=== PATIENT | female | born 2000 | race Caucasian/White ===

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

== ENCOUNTER 2018-08-02 01:42 | Outpatient (CLI) | payer MEDICAID, SELFPAY ==
--- NOTE | 2018-08-02 08:03 | DI.US_ITS ---
SYMPTOM/DIAGNOSIS: RT SIDED PELVIC PAIN, ? OVARIAN CYST, IUD PLACEMENT PELVIC ULTRASOUND: Transabdominal and transvaginal examination was performed. There are no priors for comparison. The uterus measures 5.6 cm long x 3.7 cm AP x 4.8 cm transverse. The endometrial stripe is within normal limits at 0.6 cm. There is a trace amount of free fluid in the endometrial canal. There is an intrauterine device in good position. The right ovary measures 2.8 x 2.0 x 3.0 cm. The left ovary measures 2.7 x 1.6 x 2.8 cm. There are small follicular cysts seen in both ovaries. There is normal blood flow to the ovaries. No evidence of torsion present. No free pelvic fluid is seen. No hydronephrosis is identified. IMPRESSION: 1. Intrauterine device within good position. 2. Otherwise unremarkable pelvic ultrasound.
== END 2018-08-02 02:02 ==
PROVIDERS: PCP Specialist/Technologist Athletic Trainer; Visit Provider Nurse Practitioner Women's Health
DX: R10.31 Right lower quadrant pain; Z97.5 Presence of (intrauterine) contraceptive device
CPT/HCPCS: 76830; 76856

== ENCOUNTER 2019-01-31 12:35 | Outpatient (REF) | payer SELFPAY | END 2019-01-31 12:55 | LOC: LBN 12:35 | PROVIDERS: Visit Provider Nurse Practitioner Family | DX: R30.0 Dysuria (principal) | CPT/HCPCS: 87077; 87086; 87186 ==

== ENCOUNTER 2020-02-24 18:48 | Outpatient (REF) | payer MEDICAID, SELFPAY | END 2020-02-24 19:08 | LOC: LBN 18:48 | PROVIDERS: Visit Provider Obstetrics & Gynecology | DX: R30.0 Dysuria (principal) | CPT/HCPCS: 87086 ==

== ENCOUNTER 2020-03-09 11:49 | Outpatient (REF) | payer MEDICAID, SELFPAY ==
--- NOTE | 2020-03-09 10:20 | PAPFT_PTH ---
PATIENT: Cayla Marquis V LOC: [facility] U#:[id number] AGE/SX: 19/F ROOM: RE03/09/[address]: Brittney Correa DO : 2000 BED: DIS: 03/09/2020 SPEC #: [id number] RECD: 03/09/20 13:00 STATUS: RENETTA REQ #: [id number] ALVARADO: 03/09/20 10:[address]: Brittney Correa DEPT: [facility] Cytology RECD BY: Ana Maya Tissues: 1 - CX/ENDOCX FOR PAP SMEARS Procedures: PAP THIN PREP/UVM Screening Comments: [id number]
== END 2020-03-09 12:09 ==
LOC: LBN 11:49
PROVIDERS: Visit Provider Obstetrics & Gynecology
DX: Z12.4 Encounter for screening for malignant neoplasm of cervix (principal); R87.612 Low grade squamous intraepithelial lesion on cytologic smear of cervix (LGSIL)
CPT/HCPCS: 88142

== ENCOUNTER 2020-03-19 16:02 | Outpatient (REF) | payer MEDICAID, SELFPAY ==
--- NOTE | 2020-03-19 14:30 | CER_PTH ---
PATIENT: Cayla Marquis V LOC: [facility] U#:[id number] AGE/SX: 19/F ROOM: RE03/19/[address]: Brittney Correa DO : 2000 BED: DIS: 03/19/2020 SPEC #: [id number] RECD: 03/19/20 16:59 STATUS: RENETTA REQ #: [id number] ALVARADO: 03/19/20 14:[address]: Brittney Correa DEPT: Surgical Specimen RECD BY: Ana Maya ENTERED: 03/19/20 17:01 SP TYPE: CER GLADYS DR: None Tissues: 1 - CERVICAL BIOPSY 2 - ENDOCERVICAL BX/CURRETTE Procedures: GROSS AND MICRO LEVEL 4 Comments: [id number]
== END 2020-03-19 16:22 ==
LOC: LBN 16:02
PROVIDERS: Visit Provider Obstetrics & Gynecology
DX: N88.8 Other specified noninflammatory disorders of cervix uteri (principal); R87.612 Low grade squamous intraepithelial lesion on cytologic smear of cervix (LGSIL)
CPT/HCPCS: 88305

== ENCOUNTER 2020-09-03 01:48 | Outpatient (CLI) | payer MEDICAID, SELFPAY ==
[2020-09-03 11:15] LABS: Kit/Specimen SENT
[2020-09-03 11:22] LABS: Abs Immature Grans 0.02 10^3/uL (0.0-0.06); Absolute Basophil Count 0.04 10^3/uL (0.0-0.2); Absolute Eosinophil Count 0.14 10^3/uL (0.0-0.7); Absolute Lymphocyte Count 2.64 10^3/uL (1.2-3.4); Absolute Monocyte Count 0.71 10^3/uL (0.1-0.8); Absolute Neutrophil Count 5.07 10^3/uL (1.2-6.7); Basophils % 0.5; Eosinophils % 1.6; HCT 37.4 % (36.0-46.0); HGB 12.7 g/dL (11.2-15.7); Immature Grans % 0.2; Lymphocytes % 30.6; MCH 31.1 pg (27.0-33.0); MCV 91.4 fL (80-95); MPV 9.5 fL (8.0-11.0); Monocytes % 8.2; Neutrophils % 58.9; Nucleated RBC 0 %; Platelet Count 329 10^3/uL (130-400); RBC 4.09 10^6/uL (3.93-5.22); RDW 11.7 % (11.7-14.6); RDW-SD 39.3 fL; WBC 8.62 10^3/uL (4.4-10.8)
[2020-09-03 12:22] LABS: TSH (W/Ref FT4) 1.27 uIU/mL (0.36-3.74)
[2020-09-06 10:15] LABS: Hepatitis C Ab w Rflx HCV PCR Negative (Negative); Varicella IgG Antibody Positive (See Note)
[2020-09-06 10:20] LABS: Rubella IgG Ab (UVM) Negative (See Note)
[2020-09-06 12:16] LABS: Hepatitis B Surface Ag Negative (Negative)
[2020-09-06 14:13] LABS: HIV-1/2 Ag & Ab Screen Negative (Negative)
[2020-09-07 11:25] LABS: Syphilis Total Ab w/Reflex Nonreactive (Nonreactive)
[2020-09-14 01:18] LABS: Result Summary NEGATIVE; Specimen WB Whole Blood
== END 2020-09-03 01:49 | disposition home or self-care (01) ==
LOC: LBO 01:49
PROVIDERS: Visit Provider Advanced Practice Midwife
DX: Z34.91 Encounter for supervision of normal pregnancy, unspecified, first trimester (principal); F41.9 Anxiety disorder, unspecified; Z68.31 Body mass index [BMI] 31.0-31.9, adult; Z11.4 Encounter for screening for human immunodeficiency virus [HIV]; Z11.59 Encounter for screening for other viral diseases; Z01.84 Encounter for antibody response examination; Z36.89 Encounter for other specified antenatal screening; O99.211 Obesity complicating pregnancy, first trimester
CPT/HCPCS: 36415; 86787; 86803; 86850; 86900; 86901; 87340; 87389; 81220; 84443; 85025; 86762; 86780

== ENCOUNTER 2020-09-03 13:35 | Outpatient (REF) | payer MEDICAID, SELFPAY ==
[2020-09-03 12:12] LABS: *AMPHETAMINES SCREEN URINE Negative (Negative); *BARBITURATES SCREEN URINE Negative (Negative); *BENZODIAZEPINES SCREEN URINE Negative (Negative); Cannabinoids THC Negative (Negative); Cocaine Screen,Urine Negative (Negative); METHADONE URINE SCREEN Negative (Negative); OPIATES URINE SCREEN Negative (Negative)
[2020-09-03 12:13] LABS: Tricyclic Antidepressants Negative (Negative)
[2020-09-06 14:02] LABS: Chlamydia Result Negative (Negative); GC Result Negative (Negative)
[2020-09-08 10:04] LABS: Buprenorphine Negative ng/mL (Cutoff: 5.0); Norbuprenorphine Negative ng/mL (Cutoff: 2.5)
== END 2020-09-03 13:36 | disposition home or self-care (01) ==
LOC: LBN 13:35
PROVIDERS: Visit Provider Advanced Practice Midwife
DX: O26.891 Other specified pregnancy related conditions, first trimester (principal); N89.8 Other specified noninflammatory disorders of vagina; Z3A.10 10 weeks gestation of pregnancy
CPT/HCPCS: 80307; 87491; 87591; 87086; 87480; 87510; 87660

== ENCOUNTER 2020-09-09 03:37 | Outpatient (CLI) | payer MEDICAID, SELFPAY ==
[2020-09-09 12:45] LABS: Glucose,1 Hr (Glucola) 103 mg/dL (80-140)
== END 2020-09-09 03:38 | disposition home or self-care (01) ==
LOC: LBO 03:37
PROVIDERS: Advanced Practice Midwife; Visit Provider Advanced Practice Midwife
DX: Z68.31 Body mass index [BMI] 31.0-31.9, adult (principal); O99.211 Obesity complicating pregnancy, first trimester
CPT/HCPCS: 36415; 82950

== ENCOUNTER 2020-10-01 10:54 | Outpatient (REF) | payer MEDICAID, SELFPAY | END 2020-10-01 10:55 | disposition home or self-care (01) | LOC: LBN 10:54 | PROVIDERS: Visit Provider Advanced Practice Midwife | DX: Z34.92 Encounter for supervision of normal pregnancy, unspecified, second trimester (principal); N89.8 Other specified noninflammatory disorders of vagina; Z3A.14 14 weeks gestation of pregnancy | CPT/HCPCS: 87480; 87510; 87660 ==

== ENCOUNTER 2020-11-05 04:37 | Outpatient (CLI) | payer MEDICAID, SELFPAY ==
--- NOTE | 2020-11-05 06:45 | DI.US_ITS ---
Exam(s) US OB 2-3 TRIMESTER W MOD EXAM: US OB 2-3 TRIMESTER W MOD CLINICAL HISTORY: anatomy, Z34.92. TECHNIQUE: Transabdominal obstetrical ultrasound performed. COMPARISON: No exams were available for comparison FINDINGS: Transabdominal obstetrical ultrasound performed. FINDINGS: Number of fetuses: One. position: Vertex. Placental grade: 1 Placental location: Anterior. No evidence of previa. BIOMETRIC DATA: BPD: 42 millimeters, 18+ 5 weeks HC: 164 millimeters, 19+ 1 weeks AC: 139 millimeters, 19+ 2 weeks FL: 30 millimeters, 19+ 3 weeks Cisterna Magna: 4 millimeters Cerebellum: 1.8 cm EFW: 286 grms 47 % Composite Age: 19+ 1 weeks EDC by US: 31 March 2021 Heart Rate: 145BPM Amniotic fluid: Amount of fluid is visually within normal limits. ANATOMICAL SURVEY: Four-chambered heart: Unremarkable. LVOT: Unremarkable. RVOT: Unremarkable. Left-sided stomach: Unremarkable. urinary bladder: Unremarkable. Bilateral kidneys: Unremarkable. Three-vessel cord: Unremarkable. Cord insertion: Unremarkable. Posterior fossa:Unremarkable. ventricles: Unremarkable. nose: Not well seen lips: Not well seen palate: Unremarkable. spine: Unremarkable. Two arms and two legs: Unremarkable. IMPRESSION: 1. Single live intrauterine gestation as above. 2. Normal anatomic survey. face not optimally visualized. Patient is scheduled to retur n for additional imaging 12 November 2020. DATA REPOSITORY:
== END 2020-11-05 04:57 ==
PROVIDERS: Visit Provider Advanced Practice Midwife
DX: Z34.92 Encounter for supervision of normal pregnancy, unspecified, second trimester (principal); Z3A.18 18 weeks gestation of pregnancy
CPT/HCPCS: 76805

== ENCOUNTER 2020-11-12 03:29 | Outpatient (CLI) | payer MEDICAID, SELFPAY ==
--- NOTE | 2020-11-12 | DI.US_ITS ---
Exam(s) US OB F/U FACIAL/LVOT/RVOT EXAM: US OB F/U FACIAL/LVOT/RVOT CLINICAL HISTORY: F/U SURVEY,LIPS,NOSE AND FACE TO VISUALIZE. TECHNIQUE: Transabdominal obstetrical ultrasound performed. COMPARISON: US US OB 2-3 TRIMESTER W MOD from 11/05/2020 US US OB 2-3 TRIMESTER W MOD from 11/05/2020 FINDINGS:: Number of fetuses: One. position: Transverse head toward maternal left Placental location: Anterior r. No evidence of previa. Heart Rate: 155BPM Amniotic fluid: Amount of fluid is within normal limits. The patient returned for additional imaging to better visualize the nose and lips. Nose and li ps were well seen on today's exam. No abnormalities identified. IMPRESSION: No facial abnormality is identified. DATA REPOSITORY:
== END 2020-11-12 03:49 ==
PROVIDERS: Visit Provider Advanced Practice Midwife
DX: Z34.92 Encounter for supervision of normal pregnancy, unspecified, second trimester (principal)
CPT/HCPCS: 76815

== ENCOUNTER 2020-12-31 03:44 | Outpatient (CLI) | payer MEDICAID, SELFPAY ==
[2020-12-31 10:58] LABS: HCT 34.6 % (36.0-46.0); HGB 11.7 g/dL (11.2-15.7); MCH 30.9 pg (27.0-33.0); MCHC 33.8 % (32.0-36.0); MCV 91.3 fL (80-95); MPV 9.7 fL (8.0-11.0); Platelet Count 301 10^3/uL (130-400); RBC 3.79 10^6/uL (3.93-5.22); RDW 12.4 % (11.7-14.6); RDW-SD 41.4 fL; WBC 13.08 10^3/uL (4.4-10.8)
[2020-12-31 11:07] LABS: Glucose,1 Hr (Glucola) 98 mg/dL (80-140)
== END 2020-12-31 03:45 | disposition home or self-care (01) ==
PROVIDERS: Advanced Practice Midwife; Visit Provider Advanced Practice Midwife
DX: Z34.93 Encounter for supervision of normal pregnancy, unspecified, third trimester (principal); Z3A.27 27 weeks gestation of pregnancy
CPT/HCPCS: 36415; 82950; 85027; 82951

== ENCOUNTER 2021-03-02 09:58 | Outpatient (REF) | payer MEDICAID, SELFPAY ==
[2021-03-02 10:43] LABS: *AMPHETAMINES SCREEN URINE Negative (Negative); *BARBITURATES SCREEN URINE Negative (Negative); *BENZODIAZEPINES SCREEN URINE Negative (Negative); Cannabinoids THC Negative (Negative); Cocaine Screen,Urine Negative (Negative); METHADONE URINE SCREEN Negative (Negative); OPIATES URINE SCREEN Negative (Negative)
[2021-03-02 10:55] LABS: Tricyclic Antidepressants Negative (Negative)
[2021-03-09 12:09] LABS: Buprenorphine Negative ng/mL (Cutoff: 5.0); Norbuprenorphine Negative ng/mL (Cutoff: 2.5)
== END 2021-03-02 09:59 | disposition home or self-care (01) ==
LOC: LBN 09:58
PROVIDERS: Visit Provider Advanced Practice Midwife
DX: Z34.91 Encounter for supervision of normal pregnancy, unspecified, first trimester
CPT/HCPCS: 80307; 87081

== ENCOUNTER 2021-03-11 09:59 | Outpatient (CLI) | payer MEDICAID, SELFPAY ==
[2021-03-11 10:07] VITALS: BP 124/76; PULSE 87; TEMP 37.1
--- NOTE | 2021-03-11 11:13 | W.OBNST ---
Date of service: 03/11/21 Time of Service: 10:55 NST Evaluation Reason for NST Reasons for Nonstress Test: DECREASED MOVEMENT Gestational Age Gestational Age in Weeks and Days: 37 Weeks and 2Days Test and Monitor Explained Test/Monitor Explained: Test Explained, Monitor Explained and Patient Verbalized Understanding Vital Signs Blood Pressure: 124/76 Pulse: 87 Temperature: 98.8 F Urine Results Urine Protein: Negative Urine Ketones: Negative Urine Glucose: Negative Urine Blood: Negative NST Information Date on Monitor: 03/11/21 Time on Monitor: 10:05 Date off Monitor: 03/11/21 Time off Monitor: 10:32 Total Time on Monitor: 27 NST Interventions: PO Hydration NST Evaluation Patient States Movement: Present FHR Baseline: 155 Variability: Moderate 6-25 bpm Accelerations: 15x15 Decelerations: None NST Results: Reactive Note NST Note Note: NST done due to mild elevation in BP today in office without symptoms of pre-eclampsia. Urine protein is negative on BC today. NST is reactive and reassuring. RTO 1 week. PUNEET NST Reviewed and Verified by: Darby Orr
[2021-03-11 11:14] VITALS: BP 124/76; PULSE 87; TEMP 37.1
== END 2021-03-11 10:45 | disposition home or self-care (01) ==
LOC: LBN 10:02 → OBS 10:06
PROVIDERS: Visit Provider Advanced Practice Midwife
DX: O26.893 Other specified pregnancy related conditions, third trimester (principal); R03.0 Elevated blood-pressure reading, without diagnosis of hypertension; Z3A.37 37 weeks gestation of pregnancy
CPT/HCPCS: 59025

== ENCOUNTER 2021-03-17 10:27 | Outpatient (CLI) | payer MEDICAID, SELFPAY ==
[2021-03-17 10:33] VITALS: TEMP 36.7
[2021-03-17 10:40] VITALS: BP 119/77; PULSE 106; TEMP 36.7
--- NOTE | 2021-03-17 11:10 | W.OBNST ---
Date of service: 03/17/21 Time of Service: 11:10 NST Evaluation Reason for NST Reasons for Nonstress Test: OTHER, SEE COMMENT (FHT >160 in the office) Gestational Age Gestational Age in Weeks and Days: 38 Weeks and 1Days Test and Monitor Explained Test/Monitor Explained: Test Explained, Monitor Explained and Patient Verbalized Understanding Vital Signs Blood Pressure: 119/77 Pulse: 106 Temperature: 98.1 F NST Information Time on Monitor: 10:19 Date off Monitor: 03/17/21 Time off Monitor: 10:42 NST Interventions: PO Hydration Contraction Frequency: Q7, X2 NST Evaluation Patient States Movement: Present FHR Baseline: 150 Variability: Moderate 6-25 bpm Accelerations: 15x15 Decelerations: None NST Results: Reactive Note NST Note NST Reviewed and Verified by: Iris Rizvi
[2021-03-17 11:12] VITALS: BP 119/77; PULSE 106; TEMP 36.7
== END 2021-03-17 10:46 | disposition home or self-care (01) ==
LOC: BCD 10:28 → OBS 10:31 → BCD 10:35 → OBS 10:36
PROVIDERS: Visit Provider Advanced Practice Midwife
DX: O76 Abnormality in fetal heart rate and rhythm complicating labor and delivery (principal); Z3A.38 38 weeks gestation of pregnancy
CPT/HCPCS: 59025

== ENCOUNTER 2021-03-25 10:18 | Outpatient (CLI) | payer MEDICAID, SELFPAY ==
[2021-03-25 10:22] VITALS: BP 128/76; PULSE 96; TEMP 37
--- NOTE | 2021-03-25 11:19 | PDOC.NST_ITS ---
Date of service: 03/25/21 Time of Service: 11:00 NST Evaluation Reason for NST Reasons for Nonstress Test: OTHER, SEE COMMENT Reason for NST Other: tachy in office Gestational Age Gestational Age in Weeks and Days: 39 Weeks and 2Days Test and Monitor Explained Test/Monitor Explained: Test Explained, Monitor Explained and Patient Verbalized Understanding Vital Signs Blood Pressure: 128/76 Pulse: 96 Temperature: 98.6 F NST Information Date on Monitor: 03/25/21 Time on Monitor: 10:13 Date off Monitor: 03/25/21 Time off Monitor: 10:58 Total Time on Monitor: 45 NST Interventions: PO Hydration NST Evaluation Patient States Movement: Present FHR Baseline: 155 Variability: Moderate 6-25 bpm Accelerations: 15x15 Decelerations: None NST Results: Reactive Note NST Note Note: Cayla presents from office due to heart rate 170 which resolved with position change in office. She had mild BP elevation but less than 140/90. Denies [place], visual disturbance or epigastric pain. Baby is active. She is having some contractions that she reports as cramping. No LOF or bloody show. BP is 128/76 NST reactive and reassuring. Therapy Coordinator will call patient with pro/creat ratio when available. She has appointment for 2/4 in office. PUNEET NST Reviewed and Verified by: Darby rOr
[2021-03-25 11:21] VITALS: BP 128/76; PULSE 96; TEMP 37
[2021-03-25 11:38] LABS: COMMENT (LAB VIEW ONLY) 185.44 mg/dL; PROTEIN 21.9 mg/dL; Prot/Crea Ur Ratio 0.11
== END 2021-03-25 11:24 | disposition home or self-care (01) ==
LOC: BCD 10:18 → OBS 10:20
PROVIDERS: Advanced Practice Midwife; Visit Provider Advanced Practice Midwife
DX: O76 Abnormality in fetal heart rate and rhythm complicating labor and delivery (principal); O26.893 Other specified pregnancy related conditions, third trimester; R03.0 Elevated blood-pressure reading, without diagnosis of hypertension; Z3A.39 39 weeks gestation of pregnancy
CPT/HCPCS: 59025; 82565; 84156

== ENCOUNTER 2021-04-01 12:19 | Outpatient (REF) | payer MEDICAID, SELFPAY | END 2021-04-01 12:20 | disposition home or self-care (01) | LOC: LBN 12:19 | PROVIDERS: Visit Provider Advanced Practice Midwife | DX: N89.8 Other specified noninflammatory disorders of vagina (principal) | CPT/HCPCS: 87480; 87510; 87660 ==

== ENCOUNTER 2021-04-06 07:00 | Outpatient (CLI) | payer MEDICAID, SELFPAY ==
[2021-04-06 08:59] VITALS: BP 138/88; PULSE 101
[2021-04-06 09:39] VITALS: BP 138/88; PULSE 101; TEMP 36.8
[2021-04-06 10:14] VITALS: BP 131/88; PULSE 96
[2021-04-06 10:45] VITALS: BP 122/79; PULSE 77
--- NOTE | 2021-04-06 11:08 | W.OBNST ---
Date of service: 04/06/21 Time of Service: 11:09 NST Evaluation Reason for NST Reasons for Nonstress Test: POSTDATES Gestational Age Gestational Age in Weeks and Days: 41 Weeks and 0Days Test and Monitor Explained Test/Monitor Explained: Test Explained, Monitor Explained and Patient Verbalized Understanding Vital Signs Blood Pressure: 138/88 Pulse: 101 Temperature: 98.2 F Urine Results Urine Protein: Positive Urine Ketones: Negative Urine Glucose: Negative Urine Blood: Negative NST Information Date on Monitor: 04/06/21 Time on Monitor: 08:44 Date off Monitor: 04/06/21 Time off Monitor: 10:13 Total Time on Monitor: 89 NST Interventions: PO Hydration Contraction Frequency: 8-10 NST Evaluation Patient States Movement: Present FHR Baseline: 140 Variability: Moderate 6-25 bpm Accelerations: 15x15 Decelerations: None NST Results: Reactive Note GRICELDA Results of GRICELDA: 13.1 NST Note Note: NST reactive BP taken with large cuff is 122/79. pt's arm measures 33-34 cm Cvx 2/80% vtx -2, ROP Intact membranes, GRICELDA is 13.1 Pt scheduled for IOL on the evening Apr 08 for postdates NST Reviewed and Verified by: Iris Rizvi
[2021-04-06 11:11] VITALS: BP 138/88; PULSE 101; TEMP 36.8
== END 2021-04-06 11:00 | disposition home or self-care (01) ==
LOC: BCD 07:01 → OBS 08:41
PROVIDERS: Visit Provider Advanced Practice Midwife
DX: O48.0 Post-term pregnancy (principal); Z3A.41 41 weeks gestation of pregnancy
CPT/HCPCS: 59025

== ENCOUNTER 2021-04-07 19:00 | Inpatient (IN) | payer MEDICAID, SELFPAY ==
[2021-04-07 19:42] VITALS: PULSE 81; RESP 18; TEMP 36.6
--- NOTE | 2021-04-07 19:59 | HPE_ITS ---
Date of service: 04/07/21 Time of Service: 19:59 Assessment and Plan Assessment and plan (1) Spontaneous onset of labor: Status: Acute Assessment and plan: A: 20 yo @ 41 wks Early labor with cvx change from yesterday GBS neg, Rh+, Rubella Non-Immune Category 1 tracing; BBOW, 4/100% vtx -2 ROP Mildly elevated risk for SD d/t primipara status with 40 lb wt gain No increased risk for PPH at this time Pt plans for epidural anesthesia P: Admit to BC, CBC, T&S, COVID swab Encourage rest and comfort measures as desired Epidural anesthesia when pt requests Dr. Warner available for consult if needed MMR vaccine (2) Post-dates : Status: Acute OB-HPI Labor/Delivery History of Present Illness Reason for Visit: Post term rule out labor Chief Complaint: Uterine Contractions. ASIF Calculator Estimated Delivery Date Method Current WG Current Estimate 03/30/21 LMP (Certain) 41w 1d Other Estimates 03/31/21 Ultrasound #1 41w 0d History of Present Expected Delivery Route/Plan - CNM FOB - Beny Potter (his first child) - he has a thyroid condition Rubella Non-Immune, offer MMR / GBS neg KAY Cowan Planning epidural for delivery, Depo Specific Issues/Plan 1. penicillin allergy - rash- offer screening and allergy testing: considering doing this if indicated by GBS status or 1a. Screening @ 19 wks indicate low risk for PCN allergy, too late for AP testing, will refer to [facility] , Ancef is likely recommended if GBS+ 2. BMI - greater than 30- early 1-hr GTT (risskm=108), low dose ASA recommended daily, declines ASA due to GI upset with ASA. 3, Anxiety- sees therapist Keri Verdugo.- discontinued effexor with 3a. Would like to restart Effexor ER immediately 4. 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 History of UTI, urine culture negative 6. Bacterial Vaginosis - symptomatic, treatment with metronidazole after 10 weeks gestation, repeat test 10/01 due to odor, if positive wants vag cream 7. Rubella non-immune - discussed with Cayla 11/05/20, offer vaccine post , pt uncertain if she will accept 8. [place] results=low prob x3, female fetus, CF screen negative 9. Pt and FOB are choosing to be unvaccinated against COVID- reviewed Covid precautions 10. 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 Desires LC consult after 36 wks but prior to Narrative: Pt seen yesterday for postdates evaluation, NST was reactive and GRICELDA was 13.1, discharged to home to return for scheduled IOL for postdates on 04/08. However, contractions began last night at midnight and continued all day today with slowly increasing discomfort and frequency of contractions. No ROM, no bleeding, lower abd cramping with back pain described. Pt able to eat and drink fluids without emesis throughout the day. She presents this evening calm and conversational though has to breath through contractions, states she has been awake since PA without a chance to nap. SRIRAM wSan accompanies pt for support. Review of Systems Narrative: ROS completed and is noncontributory other then HPI Cardiovascular Cardiovascular: Reports system reviewed and no additional complaints, except as documented Respiratory Respiratory: Reports system reviewed and no additional complaints, except as documented Gastrointestinal Gastrointestinal: Reports system reviewed and no additional complaints, except as documented Genitourinary Genitourinary: Reports system reviewed and no additional complaints, except as documented Musculoskeletal Musculoskeletal: Reports back pain Integumentary/Breasts Skin/Breast: Reports system reviewed and no additional complaints, except as documented Neurologic Neurologic: Reports system reviewed and no additional complaints, except as documented Psychiatric Psychiatric: Reports system reviewed and no additional complaints, except as documented, Reports as per HPI and Reports other (hx anxiety, discontinued medication when bcame ) PFSH All Active Problems (Updated 04/07/21 @ 20:14 by Iris Rizvi) Spontaneous onset of labor (Acute) Post-dates (Acute) Rubella non-immune status, antepartum (Acute) Anxiety (Chronic) discontinued effexor with BMI 31.0-31.9,adult (Acute) LGSIL on Pap smear of cervix (Acute) colposcopy 2020 Penicillin adverse reaction (Acute) rash History of recurrent UTIs (Acute) Keratosis pilaris (Acute 07/31/13) tiffany Lei rec Am LActin 4% every am with tretinoin 0.05% every hs Medical History (Updated 04/07/21 @ 20:14 by Iris Rizvi) 39 weeks gestation of Contraception (08/18/16) History of chicken pox (05/15/05) Missed menses Snoring UTI (urinary tract infection) Vaginal discharge during in first trimester Vaginal odor Vision problem wears glasses Well woman exam with routine gynecological exam Family History (Updated 09/03/20 @ 09:36 by Darby Busby CNM) Mother Essential hypertension stress related Healthy adult Father Healthy adult Other Personal history of malignant neoplasm pat uncle-brain Myocardial infarction PGGF Brother Penicillin allergy Social History Smoking/Tobacco Use Status: Never Smoking risk assessment performed?: Yes Drug use: Never Do you feel safe at home: Yes Do you feel safe in your relationship?: Yes Female Reproductive History Menstrual control method: none History History 2 Para 0 Hx # Term Pregnancies 0 Multiple births 0 Hx # Pregnancies 0 Ectopic pregnancies 0 AB induced 0 Hx Number of Living Children 0 AB spontaneous 1 Meds Allergies and Home Medications Allergies Allergy/AdvReac Type Severity Reaction Status Date / Time amoxicillin Allergy Intermediate Hives Verified 04/01/21 08:42 cillins AdvReac Unknown pt states Uncoded 04/01/21 08:42 swelling and rash with all the cillins Home Medications Medication Instructions Recorded Confirmed Type prenat.vits,[place],esa-hgyq-amxex 1 tab PO DAILY 08/13/20 03/17/21 History Exam Physical Exam Vital signs: Temp Pulse Resp 97.9 F 81 18 04/07/21 19:42 04/07/21 19:42 04/07/21 19:42 Vital Signs Reviewed: Yes Constitutional Comments: Well appearing female in NAD, coping easily with contractions Detailed Labor and Delivery Exam Dilation: 4 Effacement (%): 100 station: -2 Position: ROP Cervix position: anterior Consistency: soft HERNANDEZ Score(Cervical Ripeness Score): 10 Amniotic Membrane Status: Intact (softly bulging forebag) Contraction Frequency(min): q3-4 Contraction Duration(sec): 50-70 Fetus A Heart Rate Baseline: 140 Monitor Accelerations: Present Monitor Decelerations: None Variability: Moderate (6-25 BPM) Presentation: Cephalic Categories: Category I Est. Weight: 8 lb 2.514 oz Est. Weight: 3700 gms HEENT Exam HEENT Exam: Normal Neck Exam Neck Exam: Normal Chest/Brest/Axilla Exam Chest Exam: Normal Breast Exam Breast Exam: Not Done Respiratory Exam Respiratory Exam: Normal Cardiovascular Exam Cardiovascular Exam: Normal Abdominal Exam Abdominal Exam: Normal (gravid, nontender) Rectal Exam Rectal Exam: Not Done Exam Exam: Normal Extremities Exam Extremities Exam: Normal Back/Spine/Pelvis Exam Back Exam: Normal Pelvis Adequate: Yes Skin Exam Skin Exam: Normal Neurological Exam Neurological Exam: Normal Psychiatric Exam Psychiatric Exam: Normal Results Results Group Beta Strep: Negative Blood Type: O+ Rubella Status: Nonimmune Varicella Immunity: Immune Risk Assessment Risk for Shoulder Dystocia Historical/Initial OB: NEGATIVE FOR: Pelvic Abnormality, Pre- BMI>30, Previous Shoulder Dystocia or Previous Macrosomia Increased Risk?: No Delivery Plan @ 36wks: planned. KH Delivery Plan @ 40 wks: spontaneous labor, IOL after 41 completed weeks Risk for Pre-Eclampsia Daily Dose ASA Indicated: Yes Date Initiated/Initials: was instructed to begin low dose ASA @ 12 wks, pt declined after counseling Yes, if one or more: NEGATIVE FOR: Hx Pre-E/Gest HTN, Chronic HTN, Multiple Gestation, Pre-gestational DM, Renal Disease, Systemic Lupus or APA Syndrome Yes, if 2 or more: POSITIVE FOR: Nulliparity and BMI>30; NEGATIVE FOR: Age>= 35 yrs, >10yr btwn pregnancies, ethinicty, Mother/Sister w/ Pre-E or Previous IUGR Risk for Post- Hemorrhage Initial: NEGATIVE FOR: Multiple Gestation, Previous PPH, Known Clotting Deficiency, Grand Multiparity or Anticoagulation At Risk?: No Risks Reviewed Risks Reviewed Upon Admission: Yes
[2021-04-07 20:02] VITALS: BP 131/77; PULSE 91
[2021-04-07 20:17] LABS: Source Nasal/Nares
[2021-04-07 20:19] LABS: HCT 38.5 % (36.0-46.0); MCH 31.2 pg (27.0-33.0); MCHC 33.8 % (32.0-36.0); MCV 92.3 fL (80-95); MPV 10.3 fL (8.0-11.0); Platelet Count 295 10^3/uL (130-400); RBC 4.17 10^6/uL (3.93-5.22); RDW 12.6 % (11.7-14.6); RDW-SD 42.8 fL; WBC 16.22 10^3/uL (4.4-10.8)
[2021-04-07 21:13] LABS: COVID-19 PCR Negative (Negative)
[2021-04-07 21:49] VITALS: BP 142/94; PULSE 71
[2021-04-07 21:53] VITALS: BP 142/85; PULSE 73; TEMP 36.8
--- NOTE | 2021-04-07 22:07 | PGE_ITS ---
Date of service: 04/07/21 Time of Service: 22:07 Informed Consent Informed Consent: Regional Anesthesia and Risk,Benefits,Alternatives Discussed Pelvic Exam Dilation: 5 Effacement (%): 100 station: -2 Position: ROP Cervix Position: anterior Consistency: soft Vaginal Exam Presentation: Cephalic Assessment and Plan Assessment and plan (1) Spontaneous onset of labor: Status: Acute Assessment and plan: A: Active labor in primipara, progressing P: Pt requesting epidural anesthesia INST[employer]MENT [employer]AN [employer]OR paged and notified Start IVF, return to [facility] Discussed R&B, possible need for augmentation reviewed Objective Abnormal lab results 04/07/21 Range/Units 20:10 WBC 16.22 H (4.4-10.8) 10^3/uL Temp Pulse Resp BP 97.9 F 73 18 142/85 H 04/07/21 19:42 04/07/21 21:53 04/07/21 19:42 04/07/21 21:53 Laboratory Results WBC 16.22 10^3/uL (4.4-10.8) H 04/07/21 20:10 RBC 4.17 10^6/uL (3.93-5.22) 04/07/21 20:10 Hgb 13.0 g/dL (11.2-15.7) 04/07/21 20:10 Hct 38.5 % (36.0-46.0) 04/07/21 20:10 MCV 92.3 fL (80-95) 04/07/21 20:10 MCH 31.2 pg (27.0-33.0) 04/07/21 20:10 MCHC 33.8 % (32.0-36.0) 04/07/21 20:10 RDW 12.6 % (11.7-14.6) 04/07/21 20:10 Plt Count 295 10^3/uL (130-400) 04/07/21 20:10 MPV 10.3 fL (8.0-11.0) 04/07/21 20:10 COVID-19 Source Nasal/Nares 04/07/21 20:00 SARS-CoV-2 (PCR) Negative (Negative) 04/07/21 20:00 Patient ABO/Rh O Positive 04/07/21 20:10 Antibody Screen NEGATIVE 04/07/21 20:10 Objective Narrative Objective Narrative: Pt has been moving around the room, using [employer]son Pharm[employer]ll. Coping well, breathing with contrx and relaxed and conversational between Normotensive, afebrile Intermittent auscultation since admission SVE for progress to 5 cm, BBOW applied to cvx Subjective Interval history since last seen: Contractions have gotten stronger, back pain continues but is a but higher up, using hot waterbottle for comfort to her back, requesting SVE to see if she is progressing. She feels she is coping well with her contractions though would like to have an epidural done before pains become overwhelming.
--- NOTE | 2021-04-07 22:33 | W.ANESPRE ---
General Info Date of Service Date Performed: 04/07/21 Height: 5 ft 7 in Weight: 111.13 kg Body Mass Index (BMI): 38.3 Meds Allergies and Home Medications Allergies Allergy/AdvReac Type Severity Reaction Status Date / Time amoxicillin Allergy Intermediate Hives Verified 04/01/21 08:42 cillins AdvReac Unknown pt states Uncoded 04/01/21 08:42 swelling and rash with all the cillins Home Medication Medication Instructions Recorded prenat.vits,richmond,itm-oyly-ecjhz 1 tab PO DAILY 08/13/20 Current Visit Medications: Current Medications Generic Name Dose Route Start Last Admin Trade Name Freq PRN Reason Stop Dose Admin Fentanyl/Ropivacaine 200 ml 04/07/21 22:15 Fentanyl/Ropivacaine 2 Mcg/Ml And 0.1% 200 Ml Cadd Cassette EP DIRECTED IVETTE Ringer's Solution 500 mls @ 500 mls/hr 04/07/21 22:07 IV 04/07/21 23:06 BOLUS ONE Ringer's Solution 1,000 mls @ 125 mls/hr 04/07/21 22:30 IV INFUSION IVETTE Sodium Chloride 500 mls @ 0 mls/hr 04/07/21 22:19 Saline 500ml Bag IV PRN PRN As Directed IV Miscellaneous Supplies 1 each 04/07/21 22:30 Iv Access IV DIRECTED IVETTE Sodium Chloride 0 ml 04/07/21 22:19 Normal Saline Flush 10 Ml Syr IVP PRN PRN PFSH Active Problems Active Problems: Problem Status Onset Code Spontaneous onset of labor Post-dates O48.0 Rubella non-immune status, antepartum O99.891, Z28.3 Anxiety F41.9 BMI 31.0-31.9,adult Z68.31 LGSIL on Pap smear of cervix R87.612 Penicillin adverse reaction T36.0X5A History of recurrent UTIs Z87.440 Keratosis pilaris 07/31/13 L85.8 Medical History Medical History (Updated 04/07/21 @ 20:14 by Iris Rizvi) 39 weeks gestation of Contraception (08/18/16) History of chicken pox (05/15/05) Missed menses Snoring UTI (urinary tract infection) Vaginal discharge during in first trimester Vaginal odor Vision problem wears glasses Well woman exam with routine gynecological exam Tobacco Smoking/Tobacco Use Status: Never Substance Use Substance use: Never Prental History History 2 Para 0 Hx # Term Pregnancies 0 Multiple births 0 Hx # Pregnancies 0 Ectopic pregnancies 0 AB induced 0 Hx Number of Living Children 0 AB spontaneous 1 Vital Signs and Lab Results Vital Signs Most Recent Vital Signs in EMR: Most Recent Vital Signs Temp Pulse Resp BP 36.8 C 73 18 142/85 H 04/07/21 21:53 04/07/21 21:53 04/07/21 19:42 04/07/21 21:53 Lab Results Result Diagrams: 04/07/21 20:10 Blood Type / Crossmatch: Patient ABO/Rh O Positive 04/07/21 Antibody Screen NEGATIVE 04/07/21 Complete Blood Count: White Blood Count 16.22 10^3/uL (4.4-10.8) H 04/07/21 20:10 04/07/21 Red Blood Count 4.17 10^6/uL (3.93-5.22) 04/07/21 20:10 04/07/21 Hemoglobin 13.0 g/dL (11.2-15.7) 04/07/21 20:10 04/07/21 Hematocrit 38.5 % (36.0-46.0) 04/07/21 20:10 04/07/21 Platelet Count 295 10^3/uL (130-400) 04/07/21 20:10 04/07/21 Complete Metabolic Panel: No Data to Display Liver Function Panel: No Data to Display Coagulation Panel: No Data to Display Cardiac Panel: No Data to Display Arterial Blood Gas: No Data to Display Venous Blood Gas: No Data to Display Pancreas Panel: No Data to Display Thyroid Panel: No Data to Display Infectious Disease: Coronavirus (COVID-19)(PCR) Negative (Negative) 04/07/21 20:00 04/07/21 Coronavirus 2019 Source Nasal/Nares 04/07/21 20:00 04/07/21 Blood Cultures: No Data to Display Toxicology Panel: No Data to Display Panel: No Data to Display Anesthesia Assessment and Plan Anesthesia History Personal History: No History of Anesthesia Complications Family History: No Family History of Anesthesia Complications Exercise Tolerance Exercise Tolerance: Metabolic Equivalents>4 Pertinent Negatives Pertinent Negatives: No Symptoms of GERD, No Major Cardiovascular Symptoms or Complaints, No Major Pulmonary Symptoms or Complaints and No History of CVA/TIA Cardiac & Pulmonary Exam Cardiac Exam: Normal S1/S2 Heart Sounds Pulmonary Exam: Clear Bilateral Breath Sounds Implantable Cardiac Device Does patient have a Pacemaker or an ICD?: No Airway Exam Known Difficult Airway: No Mallampati Class: 1 Mouth Opening: Normal (> 3cm) Thyromental Distance: Greater than 3 cm Neck Range of Motion: Full ROM Neck Circumference: Normal Teeth Condition: Normal Dentition ASA Classification ASA Score: ASA 2 Emergency Case?: No NPO Status NPO Status: NPO Clears >2 hours, Solids >8 hours Status Status: Confirmed Anesthesia Plan Resuscitation Status: Full Code Anesthesia Technique: Epidural Anesthesia Airway Planned: Natural Airway Monitors Used: Standard Monitors
[2021-04-07 22:35] VITALS: BMI 38.3
[2021-04-07 23:58] VITALS: BP 133/83; PULSE 99; TEMP 36.9
[2021-04-08] VITALS (154 sets, daily range): BP systolic 107–150; BP diastolic 52–84; PULSE 72–128; RESP 18–20; TEMP 36.9–37.4; O2SAT 93–100
[2021-04-08] MEDS: Lactated Ringers 500 ML IV
[2021-04-08] MEDS: FentaNYL/ROPIvacaine 2 mcg/ml and 0.1% 200 ML CADD Cassette EP (00:44)
--- NOTE | 2021-04-08 00:50 | W.ANESNEU ---
Epidural/Spinal Catheter Date Performed: 04/08/21 Procedure Start: 00:15 Procedure Stop: 00:42 Requesting Provider: Iris Rizvi Procedure Location: Obstetrics Reason Performed: Labor Epidural Standard Monitors Applied: Blood Pressure and SpO2 Patient Position: Sitting Sedation Given (Indicate Dose Given): No Sedation given Patient Mental Status: Awake Sterility: Hand Hygiene, Surgical Cap, Surgical Mask, Sterile Gloves, Eye Protection and Chlorhexidine Procedure Location: L2-L3 Interspace Epidural Needle: Tuohy 17 Guage Needle Length: 3.5 Inch Needle Approach: Midline Epidural Procedure: Skin Prepped, Sterile Drape Placed, 1% Lidocaine to skin and subcutaneous tissue with 25G needle, Tuohy Needle placed, CRISPIN to Saline Used, Epidural Catheter Placed, Negative Heme and Negative CSF Flow Catheter Placed?: Catheter Placed Test Dose (Indicate Dose Given): 3ml 1.5% Lidocaine with 1:200K Epinephrine Given Loss of Resistance Depth (cm): 8 Catheter depth at skin (cm): 15 Dressing: Sorbaview Dressing Placed Epidural Provider Bolus (Indicate Dose Given): Total bolus dose given in 3-5 ml divided doses and Total Ropivacaine 0.1% with Fentanyl 2mcg/ml Given from pump. (ml) Dose:: 3+3 cc bolus dose of pump mixture (off pump) Additives (Indicate Dose Given ): Fentanyl PF Dose:: 100 Infusion Medication: Medication Infusion Began Medication Infusion: Ropivacaine 0.1% with Fentanyl 2mcg/ml Maintenance Infusion Rate (ml/hour): 10 PCEA Bolus Dose (ml): 5 Block Level: T10 Paresthesia: None Ultrasound: Not Used Number of Attempts (See previous attempts in note section): 2 Procedure Tolerated: No Complications and Patient tolerated well Procedure Outcome: Successful Performed By: Asim Gutierrez
[2021-04-08] MEDS: Lactated Ringers 1,000 ML 125 ML IV ×3 (01:00→19:47)
--- NOTE | 2021-04-08 07:05 | W.PM.OBNL1 ---
Date of service: 04/08/21 Time of Service: 07:06 Informed Consent Informed Consent: Other (AROM discussed, pt consents) Pelvic Exam Dilation: 8 station: -2 Position: TOBY Vaginal Exam Presentation: Vertex Contractions Monitor Mode: External Contraction Frequency(min): q3-5 Contraction Duration(sec): 60-80 Intensity: Moderate/Strong Fetus A Monitor: External (US) Heart Rate Baseline: 140 Presentation: Vertex Variability: Moderate (6-25 BPM) Categories: Category I Accelerations: 15 X 15 Decelerations: Early Amniotic Membrane Status: Ruptured Rupture Method: Artifical Amniotic Fluid: Clear Amount: moderate Date of Membrane Rupture: 04/08/21 Time of Membrane Rupture: 06:54 Assessment and Plan Assessment and plan (1) Spontaneous onset of labor: Status: Acute Assessment and plan: A: Primipara with effective epidural Steady labor progression P: AROM for clear fluid with informed consent Encourage changing maternal position prn Monitor for descent to 2nd stage Anticipate Objective Objective Narrative Objective Narrative: Pt positioned LLP after epidural placed Seemed to sleep and rest well through the night Is cheerful and excited this morning Normotensive and afebrile Category 1 tracing overall, occasional early or mild variable noted at infrequent intervals Labor still progressing though slowly Discussed AROM and pitocin augmentation with pt Subjective Interval history since last seen: Epidural was placed successfully, and to good effect. Pt was able to sleep through the night, is able to use the bedside commode with support for voiding.
--- NOTE | 2021-04-08 09:02 | PGE_ITS ---
Date of service: 04/08/21 Time of Service: 09:02 Informed Consent Informed Consent: Augmentation of Labor and Risk,Benefits,Alternatives Discussed Pelvic Exam Dilation: 8 station: -1 Contractions Monitor Mode: External Contraction Frequency(min): q4-5 Intensity: Moderate/Strong Fetus A Heart Rate Baseline: 140 Presentation: Vertex Variability: Moderate (6-25 BPM) Categories: Category I Accelerations: Present Decelerations: None Amniotic Membrane Status: Ruptured Assessment and Plan Assessment and plan (1) Spontaneous onset of labor: Status: Acute Assessment and plan: A: Transition phase labor Effective epidural anesthesia Inadequate contraction pattern No cvx change management administrator 2 hrs though descent to -1 P: R&B of pitocin augmentation discussed with pt Will begin augmentation, anticipate Subjective Interval history since last seen: Feels some mild suprapubic pressure for the past hour
[2021-04-08] MEDS: Oxytocin/Normal Saline 30 UNIT/500 ML BAG 2 UNITS IV (09:39)
--- NOTE | 2021-04-08 13:04 | W.PM.OBNL1 ---
Date of service: 04/08/21 Time of Service: 13:04 Pelvic Exam Dilation: 10 station: +1 Contractions Monitor Mode: External Contraction Frequency(min): q2-3 Fetus A Heart Rate Baseline: 140 Presentation: Vertex Variability: Moderate (6-25 BPM) Categories: Category I Assessment and Plan Assessment and plan (1) Spontaneous onset of labor: Status: Acute Assessment and plan: A: Pitocin at 6 mu/min Category 1 tracing Complete dilation with descent to +1 Effective epidural anesthesia Mildly elevated risks for SD and PPH P: 2nd stage huddle completed Precautions for SD and PPH reviewed Coached pushing efforts started Anticipate Subjective Interval history since last seen: Having involuntary urges to bear down while in left lateral position, feels increased pelvic pressure.
[2021-04-08] MEDS: Oxytocin 10 UNITS/ML VIAL IM (14:38)
[2021-04-08] MEDS: miSOPROStol 200 MCG TAB 600 MCG SL (14:39)
--- NOTE | 2021-04-08 15:40 | W.OBDELIVERY ---
Date of service: 04/08/21 Time of Service: 15:40 OB Labor/ Delivery Information Baby A Delivery Delivery Method: Spontaneaous Presentation: Vertex Cephalic Position: Vertex Vertex Position: Left Occipital Anterior Cord Description-Baby A: 3 Vessels, Nuchal Cord (snug x1 around neck and wound around body, baby delivered through cord loop) and Clamped/Cut Amniotic Fluid: Clear Estimated Blood Loss: QBL 1900 Delivery Outcome: Liveborn Infant Transferred: Remains with Mother Note: Once fully dilated, 2nd stage huddle was completed, increased risks for PPH and SD were discussed (>24 hr labor, pit aug) and preparations put in place. Excellent maternal pushing efforts for less than 2 hours resulted in of a vigorous female infant over intact perineum. Loose nuchal cord noted but too snug for attempted reduction overhead, slipped over anterior shoulder as shoulders delivered easily, cord also wound around body, baby unwrapped from cord and placed in mother's arms immediately. pitocin bolus started but IV site infiltrated, pitocin 10 units were given IM. When cord ceased pulsating, it was clamped and cut by FOB, cord blood was collected. As placenta began to detach, there was brisk bright red bleeding. Misoprostel 600 mcg PO given, while gentle cord traction and maternal pushing efforts succeeded in delivering Fernández placenta that appeared intact with 3VC. Heavy bleeding then ensued. Third nurse entered room to assist. Fundal massage was done, then bimanual compression done by CNM for 5 minutes while RN restarted IV access in maternal left arm and pitocin IV bolus was resumed. Bimanual compression stopped to straight cath bladder for 100 ml clear yellow urine. Initial inspection of vulva and vagina revealed no deep or bleeding lacerations, though bleeding continued and visualization was difficult, EBL at this point was [address] Correa summoned to delivery room, arrived at 1450, see PPH notes. Pt remained hemodynamically stable through procedures, received TXA IVPB 1 gm dose, ocasio catheter inserted, Dr. Correa placed 3 interrupted stitches to vaginal floor laceration after evacuating clots from lower uterine segment, bleeding was controlled. Infant apgars were 9/9, weight 3965 gms, strong family bonding observed. QBL was calculated at 1900 ml, sharps and sponge count is correct. Providers Nurse Poultry Inseminator: Iris Rizvi Nurse: Peña Pak Nurse: Belkys Cornell Other: Dr. Correa called to room for assistance with PPH, see note Labor/Delivery Information Number of Babies in Womb: 1 Reason Steroids Not Administered: N/A Group Beta Strep: Negative Rubella Status: Nonimmune Blood Type: O+ Varicella Immunity: Immune Medication in Delivery: pitocin, miso, TXA Maternal Complications: Hemorrhage (lower uterine segment atony) Shoulder Dystocia: No Stages of Labor Onset of Labor Date: 04/07/21 Onset of Labor Time: 00:00 Complete Dilatation Date: 04/08/21 Complete Dilatation Time: 12:41 Labor - Stage 1 Duration: 24 hours and 0 minutes ROM Baby A: 04/08/21 ROM Baby A: 06:54 Infant Delivery Date-Baby A: 04/08/21 Delivery Time-Baby A: 14:28 Labor Stage 2 Duration: 1 hours and 47 minutes Placenta Delivery Date-Baby A: 04/08/21 Placenta Delivery Time-Baby A: 14:40 Labor-Stage 3 Duration: 12 minutes Total Length of Labor-Baby A: 38 hours and 28 minutes Placenta Status: Delivered Baby A Gender: Female Gestational Status: Term (39-41.6 wks) Gestational Age in Weeks/Days: 41 Weeks and 2 Days weight: 8 lb 11.861 oz Weight Comment: 3965 gms Length-Baby A: 20 in Head Circumference-Baby A: 14.17 in Score-1 Minute Interval(Baby A) Heart Rate-1 minute: 100 BPM or Greater Respiratory Effort- 1 minute: Spontaneous/Strong Cry Muscle Tone-1 minute: Active Movement Reflex Response-1 minute: Prompt Response Color-1 minute: Bluish Hands or Feet Total Score-1 minute: 9 Score-5 Minute Interval(Baby A) Heart Rate- 5 minute: 100 BPM or Greater Respiratory Effort-5 minute: Spontaneous/Strong Cry Muscle Tone-5 minute: Active Movement Reflex Response-5 minute: Prompt Response Color-5 minute: Bluish Hands or Feet Total Score- 5 minute: 9 Procedure Procedures: Control of Hemorrhage , see PPH events note for details / Cord Blood Collection Interventions Repair of Laceration Type: Other (vaginal floor, repair by Dr. Correa, local anesthesia and 3 interrupted stiches of 3.0 Vicryl), Sponge Count Correct: Yes, Sharp Count Correct: Yes. Hemorrrhage Note Note Note: PPH began during delivery of placenta @ 1438 which was 10 minutes after . IM pitocin and PO miso were given prior to heavy bleeding that immediately followed delivery of placenta. 2 nurses and CNM Provider were in room for @ 1428 and initial steps in management of bleeding, IV access and pitocin infusion was reestablished @ 1442, third nurse in room at 1445, MD Provider in room @ 1450. Bleeding brought under control by 1510, pt remained hemodynamically stable throughout event. Hemorrhage Recognized Date Hemorrhage Recognized: 04/08/21 Time Hemorrhage Recognized: 14:38 Call for Help Date: 04/08/21 Time: 14:40 2nd RN in Room Date: 04/08/21 Time: 14:00 2nd RN: Belkys Cornell Provider in Room Date: 04/08/21 Time: 13:30 Provider: Iris Rizvi Bimanual Uterine Compression Date: 04/08/21 Time: 14:40 RN Director Clinical Pharmacology Notified Date: 04/08/21 Time: 15:20 RN Director Clinical Pharmacology on Floor Date: 04/08/21 Time: 15:20 Director Clinical Pharmacology: Milana GarciaBL Scale in Room Date: 04/08/21 Time: 14:50 OB Emergency Cart at Bedside Date: 04/08/21 Time: 14:50 IV Site Right Hand: Date: 04/08/21 Time: 14:42 IV Catheter Gauge: 20 Ocasio Catheter Urinary Catheter Date of Insertion: 04/08/21 Time of insertion: 14:55 Urinary Catheter Size: 16 Balloon Size: 10 Inserted by: Dr. Correa Medication Administration 1st Administration: Medication: Oxytocin 10 U IM Medication Other/Dose/Route: IM Administration Date: 04/08/21 Administration Time: 14:38 2nd Administration: Medication: Misoprostol 600 mcg PO Medication Other/Dose/Route: oral Administration Date: 04/08/21 Administration Time: 14:39 3rd Administration: Medication: Oxytocin 30U/500 ml IV Medication Other/Dose/Route: IV Administration Date: 04/08/21 Administration Time: 14:40 4th Administration: Medication: TXA 1 gm IV Medication Other/Dose/Route: iv Administration Date: 04/08/21 Administration Time: 15:05 Second Provider in Room Date: 04/08/21 Time: 14:50 Provider: Brittney Correa Total Blood Loss for PPH Event Quantitative Blood Loss: 1,964
--- NOTE | 2021-04-08 15:46 | OBCE_ITS ---
Date of service: 04/08/21 Time of Service: 15:46 Assessment and Plan Assessment and plan (1) hemorrhage: Status: Acute Assessment and plan: Immediate hemorrhage suspected due to lower uterine segment atony. Responded to Pitocin, rectal Cytotec, uterine massage, bladder drainage, manual expression of clot, 1 dose TXA. Please see hemorrhage documentation in delivery summary. History of Present Illness History of Present Illness Chief Complaint: hemorrhage Narrative: Kindly asked to see and examine this patient who is in the immediate period with heavy vaginal bleeding. Patient is status post normal spontaneous v aginal delivery and a prima gravid. Dishwashing Machine Operator was in attendance for delivery. Called to the room due to heavy increased vaginal bleeding and the suspicion of a cervical versus vaginal laceration. At the time my presentation, patient had a large amount of vaginal bleeding and tamponade being performed with Ray-Bernabe sponges. On examination, patient was alert and oriented. There is a modest amount of vaginal bleeding. She had received an epidural for pain control. She had received IM Pitocin x1, and rectal Cytotec. IV had been started. PFSH All Active Problems (Updated 04/08/21 @ 15:51 by Brittney Correa DO) hemorrhage (Acute) 2000ml, under 2 oxytocin, misoprostil, TXA, uterine massage Spontaneous onset of labor (Acute) Post-dates (Acute) Rubella non-immune status, antepartum (Acute) Anxiety (Chronic) discontinued effexor with BMI 31.0-31.9,adult (Acute) LGSIL on Pap smear of cervix (Acute) colposcopy 2020 Penicillin adverse reaction (Acute) rash History of recurrent UTIs (Acute) Keratosis pilaris (Acute 07/31/13) tiffany Lei rec Am LActin 4% every am with tretinoin 0.05% every hs Medical History (Updated 04/08/21 @ 15:51 by Brittney Correa DO) 39 weeks gestation of Contraception (08/18/16) History of chicken pox (05/15/05) Missed menses Snoring UTI (urinary tract infection) Vaginal discharge during in first trimester Vaginal odor Vision problem wears glasses Well woman exam with routine gynecological exam Family History (Updated 09/03/20 @ 09:36 by Darby Busby CNM) Mother Essential hypertension stress related Healthy adult Father Healthy adult Other Personal history of malignant neoplasm pat uncle-brain Myocardial infarction PGGF Brother Penicillin allergy Social History Smoking/Tobacco Use Status: Never Smoking risk assessment performed?: Yes Drug use: Never Do you feel safe at home: Yes Do you feel safe in your relationship?: Yes Female Reproductive History Menstrual control method: none History History 2 Para 0 Hx # Term Pregnancies 0 Multiple births 0 Hx # Pregnancies 0 Ectopic pregnancies 0 AB induced 0 Hx Number of Living Children 0 AB spontaneous 1 Exam Narrative Exam Narrative: As per HPI, patient alert, oriented, pulse of 90. Blood pressure stable. Significant vaginal bleeding. On examination, there was noted to be a small v aginal laceration, right angle retractor used to visualize, no apparent cervical laceration, no deep vaginal sidewall lacerations were noted. With bimanual uterine massage, copious clots returned from the lower uterine segment, allowing appropriate tonicity of the uterus. Cantu catheter had been inserted for continuous bladder drainage, and accurate I&O documentation. Patient tolerated this without significant difficulty. Small vaginal laceration repaired with infiltration of lidocaine and 2 simple interrupted sutures of 3-0 Vicryl. The area was noted to be hemostatic. Findings were discussed with the team, and patient and her . My impression is that this is related to lower uterine segment atony and no significant laceration. If she does have a significant episode of bleeding in the near future, next step would be for surgical exploration with exam under anesthesia and uterine curettage. All questions were answered. Results Last Vital Signs Temp 98.6 F 04/08/21 01:09 Pulse 103 H 04/08/21 15:44 Resp 18 04/07/21 19:42 BP 128/79 04/08/21 15:40 Pulse Ox 99 04/08/21 15:44 Labs Result diagrams: 04/07/21 20:10 Labs: Laboratory Results - last 24 hr 04/07/21 04/07/21 04/07/21 20:00 20:10 20:10 WBC 16.22 H RBC 4.17 Hgb 13.0 Hct 38.5 MCV 92.3 MCH 31.2 MCHC 33.8 RDW 12.6 Plt Count 295 MPV 10.3 COVID-19 Source Nasal/Nares SARS-CoV-2 (PCR) Negative Patient ABO/Rh O Positive Antibody Screen NEGATIVE
[2021-04-08] MEDS: Dibucaine 1% 28 GM TUBE TP (17:27)
[2021-04-08] MEDS: Hamamelis Leaf/Glycerin 100 EACH BOX PR (17:27)
[2021-04-08] MEDS: ceFAZolin 2 GM/50 ML BAG IVPB (17:28)
--- NOTE | 2021-04-08 17:41 | W.ANESPOSTOP ---
Postoperative Evaluation Date, Time and Location Date Performed: 04/08/21 Time Performed: 17:42 Patient Location: Obstetrics Vital Signs Most Recent Imported Vital Signs: Most Recent Vital Signs Temp Pulse Resp BP Pulse Ox 37.0 C 112 H 18 127/74 99 04/08/21 01:09 04/08/21 17:39 04/07/21 19:42 04/08/21 17:14 04/08/21 17:39 Assessment Mental Status: Awake (Alert & Oriented to Patient Baseline) Airway and Respiratory Function: Patent airway with normal (patient baseline) respiratory exam Cardiovascular Function: Hemodynamically Stable Hydration Status: Adequately Hydrated Nausea & Vomiting: No Nausea or Vomiting Pain: Pt. Denies Any Pain Peripheral Nerve Block: Other (Epidural appropriately resolving, denied complaint, denied headache, denied backpain. Delay on catheter removal due to OBs concerns related to recent hemorhage. OB RN to remove later this evening and to notify this provider regarding tip status. )
[2021-04-08] MEDS: Acetaminophen 325 MG TAB 650 MG PO (19:47)
[2021-04-08] MEDS: Ibuprofen 600 MG TAB PO (19:48)
[2021-04-08] MEDS: miSOPROStol 200 MCG TAB 600 MCG PO (23:11)
[2021-04-09] VITALS: BP 136/79; PULSE 89; RESP 18; TEMP 37.3
[2021-04-09 04:15] VITALS: BP 124/81; PULSE 88; RESP 18
[2021-04-09] MEDS: Ibuprofen 600 MG TAB PO ×4 (04:30→23:07)
[2021-04-09] MEDS: Acetaminophen 325 MG TAB 650 MG PO ×4 (04:30→23:06)
[2021-04-09 06:07] LABS: HCT 26.4 % (36.0-46.0); HGB 8.9 g/dL (11.2-15.7); MCH 31.4 pg (27.0-33.0); MCHC 33.7 % (32.0-36.0); MCV 93.3 fL (80-95); MPV 10.4 fL (8.0-11.0); Platelet Count 204 10^3/uL (130-400); RBC 2.83 10^6/uL (3.93-5.22); RDW 12.9 % (11.7-14.6); RDW-SD 43.7 fL; WBC 15.91 10^3/uL (4.4-10.8)
--- NOTE | 2021-04-09 08:11 | W.PM.OBPNV1 ---
Date of service: 04/09/21 Time of Service: 08:11 Assessment and Plan Assessment and plan (1) Term delivered: Status: Acute Assessment and plan: A: s/p and significant PPH Nml recovery since stabilization H&H 8.9/24.6, pulse under 100, normotensive Pt reports occasional lightheadedness off to a good start Pt expresses satisfaction with experience Increased risk of PPD due to hx of anxiety, not on medication P: Continue providing support Encourage discussion about events of labor and prn Pt received Ancef 2 gms x1 prophylaxis Planning for discharge tomorrow MMR prior to discharge F/up at 2 & 6 wks, PAP due at 6 wks PP Undecided about BCM (2) hemorrhage: Status: Acute Assessment and plan: Recovering well, minimal rubra, vss, see above note Exam Physical Exam Vital signs: Temp Pulse Resp BP Pulse Ox 99.2 F 88 18 124/81 98 04/09/21 00:00 04/09/21 04:15 04/09/21 04:15 04/09/21 04:15 04/08/21 19:34 Vital Signs Reviewed: Yes Constitutional Constitutional: no acute distress and cooperative HEENT Exam HEENT Exam: Normal Neck Exam Neck Exam: Normal Breast Exam Bilateral: Breast Exam: Normal and Soft Nipple Exam: Normal and Uninjured Respiratory Exam Respiratory Exam: Normal Cardiovascular Exam Cardiovascular Exam: Normal Abdominal Exam Abdomen: Other (soft, nontender) Fundal Exam Fundus: Below Umbilicus and Firm Rectal Exam Rectal Exam: Not Done Exam Perineum: Intact and Normal Comments: ocasio removed at 0430 this morning, labia mildly edematous Extremities Exam Extremity Exam: Normal, Full ROM, Pulses Intact, Normal Capillary Refill and Warm to Touch Back/Spine/Pelvis Exam Back Exam: Normal (epidural site healing well) Skin Exam Skin Exam: Normal Neurological Exam Neurological Exam: Normal Psychiatric Exam Psychiatric Exam: Normal Results Abnormal Lab Findings: Abnormal Labs 04/07/21 04/09/21 20:10 05:55 WBC 16.22 H 15.91 H RBC 2.83 L Hgb 8.9 L D Hct 26.4 L D Hemorrrhage Note Hemorrhage Recognized Date Hemorrhage Recognized: 04/08/21 Time Hemorrhage Recognized: 14:38 Call for Help Date: 04/08/21 Time: 14:40 2nd RN in Room Date: 04/08/21 Time: 14:00 2nd RN: Belkys Cornell Provider in Room Date: 04/08/21 Time: 13:30 Provider: Iris Rizvi Bimanual Uterine Compression Date: 04/08/21 Time: 14:40 RN Air And Hydronic Balancing Technician Notified Date: 04/08/21 Time: 15:20 RN Air And Hydronic Balancing Technician on Floor Date: 04/08/21 Time: 15:20 Air And Hydronic Balancing Technician: Milana Montgomery QBL Scale in Room Date: 04/08/21 Time: 14:50 OB Emergency Cart at Bedside Date: 04/08/21 Time: 14:50 Ocasio Catheter Urinary Catheter Date of Insertion: 04/08/21 Time of insertion: 14:55 Urinary Catheter Size: 16 Balloon Size: 10 Inserted by: Dr. Correa Second Provider in Room Date: 04/08/21 Time: 14:50 Provider: Brittney Correa Total Blood Loss for PPH Event Quantitative Blood Loss: 1,964
[2021-04-09 09:15] VITALS: BP 122/77; PULSE 90; RESP 16; TEMP 36.6; O2SAT 98
[2021-04-09] MEDS: Docusate Sodium 100 MG CAP PO (10:38)
[2021-04-09 12:00] VITALS: BP 113/77; PULSE 80; RESP 16; TEMP 36.5; O2SAT 99
[2021-04-09] MEDS: Measles, Mumps, & Rubella Vaccine 0.5 ML VIAL SC (14:09)
[2021-04-09 15:30] VITALS: BP 125/83; PULSE 109; RESP 16; TEMP 36.7
[2021-04-09 23:31] VITALS: BP 122/82; PULSE 100; RESP 18; TEMP 37.1
[2021-04-10 08:05] VITALS: BP 126/82; PULSE 81; RESP 16; TEMP 36.6; O2SAT 100
[2021-04-10] MEDS: Dibucaine 1% 28 GM TUBE TP (08:22)
[2021-04-10] MEDS: Ibuprofen 600 MG TAB PO ×2 (08:23→14:55)
[2021-04-10] MEDS: Hamamelis Leaf/Glycerin 100 EACH BOX PR (08:23)
[2021-04-10] MEDS: Docusate Sodium 100 MG CAP PO (08:23)
[2021-04-10] MEDS: Acetaminophen 325 MG TAB 650 MG PO ×2 (08:24→14:55)
--- NOTE | 2021-04-10 08:49 | OBPPV_ITS ---
Date of service: 04/10/21 Time of Service: 08:49 Assessment and Plan Assessment and plan (1) Term delivered: Status: Acute Assessment and plan: A: s/p , s/p significant PPH Expected anemia, asymptomatic Nml recovery, well Increased risk of PPD due to hx of anxiety, not on medication P: F/up at 2 & 6 wks, PAP due at 6 wks PP Undecided about BCM Pt declines need for medication for anxiety or depression MMR given, to resume PNV's and begin iron supplement Discharge home today (2) hemorrhage: Status: Acute Assessment and plan: Recovering well, minimal rubra, vss, see above note Subjective Subjective Interval history: Denies dizziness when ambulating, has showered, feeling tired today from little sleep, would like to go home. Has many friends and family waiting to support and help with care. Patient comments: Pain well controlled and Bowel Movement Patient's Mood: tired but happy baby status: Doing well, Nursing well, Supplemental feeding going well, Rooming in, Strong Bonding Observed and Excessive weight loss [place] feeding status: Breast and formula feeding, Pumping and bottle feeding and Pipette Feeding Exam Physical Exam Vital signs: Temp Pulse Resp BP Pulse Ox 98.7 F 100 H 18 122/82 99 04/09/21 23:31 04/09/21 23:31 04/09/21 23:31 04/09/21 23:31 04/09/21 12:00 Vital Signs Reviewed: Yes Constitutional Constitutional: no acute distress and cooperative HEENT Exam HEENT Exam: Normal Neck Exam Neck Exam: Normal Breast Exam Bilateral: Breast Exam: Normal and Soft Respiratory Exam Respiratory Exam: Normal Cardiovascular Exam Cardiovascular Exam: Normal Abdominal Exam Abdomen: Other (soft, nontender) Fundal Exam Fundus: Below Umbilicus and Firm Rectal Exam Rectal Exam: Not Done Exam Perineum: Intact and Normal Extremities Exam Extremity Exam: Normal, Full ROM, Pulses Intact, Normal Capillary Refill and Warm to Touch Back/Spine/Pelvis Exam Back Exam: Normal (epidural site healing well) Skin Exam Skin Exam: Normal Neurological Exam Neurological Exam: Normal Psychiatric Exam Psychiatric Exam: Normal Hemorrrhage Note Hemorrhage Recognized Date Hemorrhage Recognized: 04/08/21 Time Hemorrhage Recognized: 14:38 Call for Help Date: 04/08/21 Time: 14:40 2nd RN in Room Date: 04/08/21 Time: 14:00 2nd RN: Belkys Cornell Provider in Room Date: 04/08/21 Time: 13:30 Provider: Iris Rizvi Bimanual Uterine Compression Date: 04/08/21 Time: 14:40 RN Thread Separator Notified Date: 04/08/21 Time: 15:20 RN Thread Separator on Floor Date: 04/08/21 Time: 15:20 Thread Separator: Milana GarciaBL Scale in Room Date: 04/08/21 Time: 14:50 OB Emergency Cart at Bedside Date: 04/08/21 Time: 14:50 IV Site Right Antecubital: IV Catheter Gauge: 20 Left Forearm: IV Catheter Gauge: 20 Right Hand: Date: 04/08/21 Time: 14:42 IV Catheter Gauge: 20 Cantu Catheter Urinary Catheter Date of Insertion: 04/08/21 Time of insertion: 14:55 Urinary Catheter Size: 16 Balloon Size: 10 Inserted by: Dr. Correa Medication Administration 1st Administration: Medication: Oxytocin 10 U IM Medication Other/Dose/Route: IM Administration Date: 04/08/21 Administration Time: 14:38 2nd Administration: Medication: Misoprostol 600 mcg PO Medication Other/Dose/Route: oral Administration Date: 04/08/21 Administration Time: 14:39 3rd Administration: Medication: Oxytocin 30U/500 ml IV Medication Other/Dose/Route: IV Administration Date: 04/08/21 Administration Time: 14:40 4th Administration: Medication: TXA 1 gm IV Medication Other/Dose/Route: iv Administration Date: 04/08/21 Administration Time: 15:05 Second Provider in Room Date: 04/08/21 Time: 14:50 Provider: Brittney Correa Total Blood Loss for PPH Event Quantitative Blood Loss: 1,964
--- NOTE | 2021-04-10 10:49 | DSE_ITS ---
Date of service: 04/10/21 Time of Service: 10:49 DS: Diagnosis Discharge Diagnosis (1) Term delivered: Status: Acute (2) hemorrhage: Status: Acute Discharge Plan Disposition Condition: Good Discharge Details Reason For Visit: Post Term Rule Out Labor Admit Date/Time: 04/07/21 19:00 Admit Provider: Iris Rizvi Attending Provider: Iris Rizvi Primary Care Provider: Unknown,Unknown Hospital Course Hospital Course: after epidural anesthesia and pitocin augmentation, immediate hemorrhage due to lower segment atony, nml recovery, expected anemia Home Meds and New Rx's Prescriptions: No Action prenat.vits,[place],[id number] Tablet 1 tab PO DAILY 0RF ferrous sulfate 324 mg (65 mg iron) tablet,delayed release (DR/EC) 324 mg PO DAILY Qty: 60 3RF Discharge Instructions Additional Instructions: Please call the office tomorrow morning to schedule 2 and 6 week appointments with your button decorating machine operator. Report any persistent or concerning depression or mood changes. Call for any questions or concerns. Resume taking your vitamins and begin taking an iron supplement daily (prescribed). Stand Alone Forms: Instructions, Post Vaginal Deliver Activity:: Activity as Tolerated Activity:: rest Equipment/Supplies:: No Equipment Needed Diet:: Normal Diet OB:DS Summary Summary Vaginal Delivery Method: Spontaneaous Laceration Description: Other (vaginal floor, repair by Dr. Correa, local anesthesia and 3 interrupted stiches of 3.0 Vicryl) Contraception Discussed Contraception Discussed: Yes Contraceptive Plan: Undecided, [place] Gender-Baby A: Female weight: 8 lb 11.861 oz Status at Discharge Functional status at discharge: independent ambulation Overall status at discharge: patient is progressing back to baseline Mental Status: mental status grossly normal Speech and Movement: speech and movement normal and speech clear Mood: congruent mood Affect: normal affect Exam Physical Exam Vital signs: Temp Pulse Resp BP Pulse Ox 97.9 F 81 16 126/82 100 04/10/21 08:05 04/10/21 08:05 04/10/21 08:05 04/10/21 08:05 04/10/21 08:05 Vital Signs Reviewed: Yes Constitutional Constitutional: no acute distress and cooperative HEENT Exam HEENT Exam: Normal Neck Exam Neck Exam: Normal Breast Exam Bilateral: Breast Exam: Normal and Soft Respiratory Exam Respiratory Exam: Normal Cardiovascular Exam Cardiovascular Exam: Normal Abdominal Exam Abdomen: Other (soft, nontender) Fundal Exam Fundus: Below Umbilicus and Firm Rectal Exam Rectal Exam: Not Done Exam Perineum: Intact and Normal Extremities Exam Extremity Exam: Normal, Full ROM, Pulses Intact, Normal Capillary Refill and Warm to Touch Back/Spine/Pelvis Exam Back Exam: Normal (epidural site healing well) Skin Exam Skin Exam: Normal Neurological Exam Neurological Exam: Normal Psychiatric Exam Psychiatric Exam: Normal PFSH All Active Problems (Updated 04/09/21 @ 08:15 by Iris Rizvi) Term delivered (Acute) hemorrhage (Acute) 2000ml, under 2 oxytocin, misoprostil, TXA, uterine massage Rubella non-immune status, antepartum (Acute) Anxiety (Chronic) discontinued effexor with BMI 31.0-31.9,adult (Acute) LGSIL on Pap smear of cervix (Acute) colposcopy 2020 Penicillin adverse reaction (Acute) rash History of recurrent UTIs (Acute) Keratosis pilaris (Acute 07/31/13) tiffany Lei rec Am LActin 4% every am with tretinoin 0.05% every hs Medical History (Updated 04/09/21 @ 08:15 by Iris Rizvi) 39 weeks gestation of Contraception (08/18/16) History of chicken pox (05/15/05) Missed menses Post-dates Snoring Spontaneous onset of labor UTI (urinary tract infection) Vaginal discharge during in first trimester Vaginal odor Vision problem wears glasses Well woman exam with routine gynecological exam Family History (Updated 09/03/20 @ 09:36 by Darby Busby CNM) Mother Essential hypertension stress related Healthy adult Father Healthy adult Other Personal history of malignant neoplasm pat uncle-brain Myocardial infarction PGGF Brother Penicillin allergy Social History Smoking/Tobacco Use Status: Never Smoking risk assessment performed?: Yes Drug use: Never Do you feel safe at home: Yes Do you feel safe in your relationship?: Yes Female Reproductive History Menstrual control method: none History History 2 Para 0 Hx # Term Pregnancies 0 Multiple births 0 Hx # Pregnancies 0 Ectopic pregnancies 0 AB induced 0 Hx Number of Living Children 0 AB spontaneous 1 DS: Data Vitals/I&O Vitals and I&O: Vital Signs Temperature 97.9 F 04/10/21 08:05 Pulse 81 04/10/21 08:05 Pulse Rhythm Regular 04/10/21 08:05 Respiratory Rate 16 04/10/21 08:05 Respiratory Depth Normal 04/07/21 20:02 Blood Pressure 126/82 04/10/21 08:05 Blood Pressure Mean 96 04/10/21 08:05 Pulse Oximetry 100 04/10/21 08:05 Pain Level 5 04/10/21 08:24 Comment 04/08/21 15:24 Intake & Output 04/09/21 04/09/21 04/10/21 11:59 23:59 11:59 Intake Total 1100 / 1650 550 / 1650 Output Total 4600 / 7300 2700 / 7300 Balance -3500 / -5650 -2150 / -5650 Intake: Oral 1100 / 1650 550 / 1650 Output: Urine 4600 / 7300 2700 / 7300 Other: Urine Color Light Sandra Yellow Urine Appearance Clear Clear Urine Odor None None Voiding Methods Toilet Toilet
[2021-04-10 16:50] VITALS: BP 123/83; PULSE 98; RESP 16; TEMP 36.7; O2SAT 98
== END 2021-04-10 17:55 | disposition home or self-care (01) | DRG 806 ==
PROVIDERS: Admitting Provider Advanced Practice Midwife; Visit Provider Advanced Practice Midwife
DX: O48.0 Post-term pregnancy (principal); O72.1 Other immediate postpartum hemorrhage; Z37.0 Single live birth; O71.4 Obstetric high vaginal laceration alone; Z3A.41 41 weeks gestation of pregnancy; O90.81 Anemia of the puerperium; D64.9 Anemia, unspecified
CPT/HCPCS: 36415; 85027; 86850; 86900; 86901; 87635; J0690; J2590

== ENCOUNTER 2021-04-23 08:26 | Inpatient (IN) | payer MEDICAID, SELFPAY ==
--- NOTE | 2021-04-23 21:38 | HPE_ITS ---
Date of service: 04/23/21 Time of Service: 22:03 Assessment and Plan Assessment and plan (1) Puerperal endometritis, condition or complication: Status: Acute Assessment and plan: Pt is currently 2w PP with 4 days of intermittent fever and chills. No uterine pain or breast issues. She will be treated for presumed endometritis and will follow temps. Pt will continue to pump breast milk to her . Offer antipyretics and NSAIDs as needed. History of Present Illness History of Present Illness Chief Complaint: fever in pt Narrative: Pt is a 20yo female who reports onset of hot/cold chills, achy with migraine [place], and episodic temp elevation with maximum elevation to 103 F beginnning 04/19/21. She called the CNM provider yesterday 04/22/21 regarding her sx and oral Doxycycline 100mg and Azithromycin 1gm x1 were ordered. Pt took her first dose of the Doxycycline yesterday and completed Azithromycin yesterday. Her fevers have persisted with TMax 102 today. She was advised to present for IV antibiotics and lab evaluation. 04/08/21. over intact perineum female with immediate hemorrhage due to lower uterine segment atony.?QBL 1900cc. Responded to Pitocin, rectal Cytotec, uterine massage, bladder drainage, manual expression of clot, 1 dose TXA.? PPD H/H 8.9/24.6. Pt was discharged to home pumping breastmilk and taking FeSO4 along with daily vitamin. Continues to pump breast milk which is bottle fed to her . Pt reports nml amt vaginal bleeding with nml odor, occasional small clots, was brown but more bright red past couple days Denies abd or breast pain, nml bowel and bladder function Review of Systems Constitutional Constitutional: Reports body ache(s), Reports chills, Reports fatigue, Reports fever(s), Reports headache(s) and Reports night sweats (-26lbs since delivery) ENT Ears, Nose, Mouth, and Throat: Reports headache(s) Respiratory Respiratory: Reports system reviewed and no additional complaints, except as documented Gastrointestinal Gastrointestinal: Reports as per HPI Genitourinary Genitourinary: Reports as per HPI Integumentary/Breasts Skin/Breast: Reports as per HPI Neurologic Neurologic: Reports headache(s) Psychiatric Psychiatric: Reports system reviewed and no additional complaints, except as documented Endocrine Endocrine: Reports fatigue PFSH All Active Problems (Updated 04/23/21 @ 22:14 by Brissa Curtis MD) Vaginal delivery (Acute) 04/08/21. . F. PPH 2/ atony. Puerperal endometritis, condition or complication (Acute) Routine follow-up (Acute) Rubella non-immune status, antepartum (Acute) Anxiety (Chronic) discontinued effexor with BMI 31.0-31.9,adult (Acute) LGSIL on Pap smear of cervix (Acute) colposcopy 2020 Medical History (Updated 04/23/21 @ 22:14 by Brissa Curtis MD) Contraception (08/18/16) History of chicken pox (05/15/05) History of recurrent UTIs Keratosis pilaris (07/31/13) tiffany Lei rec Am LActin 4% every am with tretinoin 0.05% every hs Missed menses Penicillin adverse reaction rash Post-dates hemorrhage 2000ml, under 2 oxytocin, misoprostil, TXA, uterine massage Snoring Spontaneous onset of labor Term delivered UTI (urinary tract infection) Vaginal discharge during in first trimester Vaginal odor Vision problem wears glasses Well woman exam with routine gynecological exam Family History (Updated 09/03/20 @ 09:36 by Darby Busby CNM) Mother Essential hypertension stress related Healthy adult Father Healthy adult Other Personal history of malignant neoplasm pat uncle-brain Myocardial infarction PGGF Brother Penicillin allergy Social History Smoking/Tobacco Use Status: Never Smoking risk assessment performed?: Yes Drug use: Never Do you feel safe at home: Yes Do you feel safe in your relationship?: Yes Female Reproductive History Menstrual control method: none History History 2 Para 1 Hx # Term Pregnancies 1 Multiple births 0 Hx # Pregnancies 0 Ectopic pregnancies 0 AB induced 0 Hx Number of Living Children 1 AB spontaneous 1 Past Pregnancies Del. Date GA/Weeks # Outcome Route Wgt Sex Labor Lgth Anesthes ia Location Prov Complic 04/08/21 41 No Successful vaginal 8 lb 11.86 oz Female 38hrs 28min r nathna Hinojosa CNM hemorrhage Delivery Date: 04/08/21 Last Updated by: CYNTHIA Cabello; Augmentation of labor due to inadequate ctx pattern; Nuchal cord x1 snug around neck,(slipped over shoulders easily when shoulders delivered) and wound around body; PPH, vaginal floor laceration noted, repaired with stitchYamilet martinez DO; Received TXA IVPB 1 gram Meds Allergies and Home Medications Allergies Allergy/AdvReac Type Severity Reaction Status Date / Time amoxicillin Allergy Intermediate Hives Verified 04/01/21 08:42 cillins AdvReac Unknown pt states Uncoded 04/01/21 08:42 swelling and rash with all the cillins Home Medications Medication Instructions Recorded Confirmed Type prenat.vits,[place],[id number] 1 tab PO DAILY 08/13/20 04/22/21 History ferrous sulfate 324 mg (65 mg 324 mg PO DAILY #60 tab 04/10/21 04/22/21 Rx iron) tablet,delayed release azithromycin 500 mg tablet 1,000 mg PO ONCE #2 tab 04/22/21 04/22/21 Rx (Zithromax) doxycycline hyclate 100 mg capsule 100 mg PO BID 10 Days #20 cap 04/22/21 04/22/21 Rx medroxyprogesterone 150 mg/mL 150 mg IM [id number] #1 ml 04/22/21 04/22/21 Rx intramuscular syringe (Depo-Provera) Exam Const General: cooperative and no acute distress Nutritional Appearance: obese Orientation: alert, awake and oriented x3 Neck Neck: normal visual inspection and no lymphadenopathy Chest Chest: normal inspection of the chest Breast inspection: normal inspection of the breasts Breast palpation: normal palpation of the breasts Resp Effort & Inspection: normal respiratory effort Auscultation: clear to auscultation bilaterally GI Inspection: normal to inspection Palpation: soft, no hepatosplenomegaly, no masses and nontender General: deferred Skin General skin exam: no rashes or lesions noted Extrem General: normal to inspection, full ROM, no pedal edema and no calf tenderness Psych Appearance: grossly normal Mental Status: mental status grossly normal Speech and Movement: speech and movement normal Mood: congruent mood Affect: normal affect Attitude: cooperative Thought Process: normal Thought Content: normal Insight: insight good Judgment: judgment good
[2021-04-23 21:59] VITALS: BP 134/69; PULSE 99; RESP 16; TEMP 36.4; O2SAT 99
--- NOTE | 2021-04-23 22:04 | NUR.NOTE ---
Nursing Note: 2119 Pt arrived ambulatory,direct admisson from home as requested by VINCE Mcbride. Dr Lazaro taking over care. Pt delivered vaginally on 04/08 and hemorrhaged in the immediate period. Waiting on orders from MD. Pt reports fever at home and chills and sweats. Temp on admission normal. Pt reports last dose of Tylenol 500mg and Ibuprofen 600mg at 1800 today. Pt is bumping EBM and nippling this to baby instead of putting baby to breast. Breasts are soft and nontender. Pt denies perineal pain or abd pain, no pain when abd palpated. Pt reports tolerating a regular diet and drinking lots of water. 2134 20g IV/saline lock inserted in left antecube by Eryn RN Metal Model Builder, 1st attempt by this RN in left wrist. Rapid Covid swab also collected by RN Metal Model Builder. Pt appears calm and relaxed, appropriate and cooperative.
[2021-04-23 22:08] LABS: Source Nasal/Nares
[2021-04-23 22:32] LABS: HCT 27.7 % (36.0-46.0); HGB 8.8 g/dL (11.2-15.7); MCH 30.3 pg (27.0-33.0); MCHC 31.8 % (32.0-36.0); MCV 95.5 fL (80-95); MPV 9.3 fL (8.0-11.0); Platelet Count 338 10^3/uL (130-400); RDW-SD 45.9 fL; WBC 8.96 10^3/uL (4.4-10.8)
[2021-04-23 22:45] LABS: COVID-19 PCR Negative (Negative)
[2021-04-23 22:51] LABS: ALT 40 U/L (14-59); AST 20 U/L (15-37); Albumin 2.7 g/dL (3.4-5.0); Alkaline Phosphatase 110 U/L (46-116); Anion Gap 8.6 mmol/L (3-11); BUN 8 mg/dL (7-18); Bilirubin, Total 0.4 mg/dL (0.2-1.0); CO2 26.4 mmol/L (21.0-32.0); CREATININE 0.8 mg/dL (0.55-1.02); Calcium 8.8 mg/dL (8.5-10.1); Chloride 101 mmol/L (98-107); Glucose 117 mg/dL (74-106); Potassium 3.8 mmol/L (3.5-5.1); Sodium 136 mmol/L (136-145); Total Protein 7.2 g/dL (6.4-8.2)
[2021-04-23] MEDS: CLINDAMYCIN 900 MG/50 ML BAG 50 MG IVPB (23:07)
--- NOTE | 2021-04-24 00:13 | NUR.NOTE ---
Nursing Note: Pt asleep. Baby on chest. FOB awake and aware of Unit safe sleep policy.
--- NOTE | 2021-04-24 00:40 | NUR.NOTE ---
Nursing Note: Ot sleeping at this time. IV saline locked.
[2021-04-24 03:28] VITALS: BP 137/57; PULSE 98; RESP 18; TEMP 36.7; O2SAT 98
[2021-04-24] MEDS: Acetaminophen 500 MG TAB 1000 MG PO ×2 (03:33→12:42)
[2021-04-24] MEDS: CLINDAMYCIN 900 MG/50 ML BAG 50 MG IVPB ×3 (05:59→22:05)
[2021-04-24] MEDS: Ibuprofen 600 MG TAB PO (06:38)
[2021-04-24 07:15] VITALS: BP 112/72; PULSE 93; RESP 16; TEMP 36.8; O2SAT 98
[2021-04-24] MEDS: Ferrous Sulfate 325 MG TAB PO (08:11)
[2021-04-24] MEDS: Prenatal Multivitamin w/CA,FE TAB 1 TAB PO (08:11)
--- NOTE | 2021-04-24 08:50 | W.PM.PROGNOT ---
Date of Service Date of service: 04/24/21 Time of Service: 08:50 Assessment and Plan Assessment and plan (1) Puerperal endometritis, condition or complication: Status: Acute Assessment and plan: Patient has been afebrile overnight and reports feeling much better. Normal WBC this morning. The plan is to keep her inpatient for another 24 hours to continue observing her temperature and vital signs. She is agreeable to the plan Subjective Subjective Patient reports: feels better (1 episode of sweating during the night. No shakes or chills); denies afebrile or fever Interval history since last seen: Patient admitted evening of 04/23/2021 with history of 4 days of fever chills and malaise. At the time of her admission her physical exam was unremarkable with no evidence of tender uterus malodorous vaginal discharge breast erythema. Normal WBC. She had appropriate recovery of her hematocrit after a hemorrhage. She received clindamycin and tobramycin beginning last evening and has not required antipyretics during the night. Exam Const General: comfortable Orientation: alert, awake and oriented x3 Resp Effort & Inspection: normal respiratory effort GI Inspection: normal to inspection Palpation: soft, no hepatosplenomegaly and nontender General: deferred Skin General skin exam: no rashes or lesions noted Extrem General: normal to inspection and full ROM Psych Appearance: grossly normal Mental Status: mental status grossly normal Speech and Movement: speech and movement normal Objective Last Vital Signs Temp 98.2 F 04/24/21 07:15 Pulse 93 H 04/24/21 07:15 Resp 16 04/24/21 07:15 BP 112/72 04/24/21 07:15 Pulse Ox 98 04/24/21 07:15 Laboratory Results - last 24 hr 04/23/21 04/23/21 04/23/21 21:48 22:25 22:25 WBC 8.96 RBC 2.90 L Hgb 8.8 L Hct 27.7 L MCV 95.5 H MCH 30.3 MCHC 31.8 L RDW 13.0 Plt Count 338 D MPV 9.3 Sodium 136 Potassium 3.8 Chloride 101 Carbon Dioxide 26.4 Anion Gap 8.6 BUN 8 Creatinine 0.8 Estimated GFR/1.73 m2 >= 60.00 Glucose 117 H Calcium 8.8 Total Bilirubin 0.4 AST 20 ALT 40 Alkaline Phosphatase 110 Total Protein 7.2 Albumin 2.7 L COVID-19 Source Nasal/Nares SARS-CoV-2 (PCR) Negative
--- NOTE | 2021-04-24 11:27 | W.PM.PROGNOT ---
Date of Service Date of service: 04/24/21 Time of Service: 11:27 Assessment and Plan Assessment and plan (1) Vaginal delivery: Status: Acute (2) Puerperal endometritis, condition or complication: Status: Acute Assessment and plan: Doing well and afebrile on IV abx. Will complete 24 hours on current regime tonight with transition to PO. Possible D/C in the AM Subjective Subjective Interval history since last seen: Patient seen, doing well. No fever, no pain. Questioning discharge. Emphasis on afebrile x 24 hours here on IV antibiotics, and change to PO tonight. D/C tomorrow if stable and afebrile Exam Const General: cooperative, healthy appearing, comfortable, no acute distress, well developed and well groomed Orientation: alert and oriented x3 Eyes General: appearance normal, both eyes and all related structures Neck Neck: normal visual inspection and supple Resp Effort & Inspection: normal respiratory effort and able to speak in complete sentences Cardio Rate: regular rate Rhythm: regular rhythm GI Inspection: normal to inspection and non-distended Extrem General: normal to inspection, no clubbing, cyanosis or edema and no calf tenderness Objective Last Vital Signs Temp 98.2 F 04/24/21 07:15 Pulse 93 H 04/24/21 07:15 Resp 16 04/24/21 07:15 BP 112/72 04/24/21 07:15 Pulse Ox 98 04/24/21 07:15 Laboratory Results - last 24 hr 04/23/21 04/23/21 04/23/21 21:48 22:25 22:25 WBC 8.96 RBC 2.90 L Hgb 8.8 L Hct 27.7 L MCV 95.5 H MCH 30.3 MCHC 31.8 L RDW 13.0 Plt Count 338 D MPV 9.3 Sodium 136 Potassium 3.8 Chloride 101 Carbon Dioxide 26.4 Anion Gap 8.6 BUN 8 Creatinine 0.8 Estimated GFR/1.73 m2 >= 60.00 Glucose 117 H Calcium 8.8 Total Bilirubin 0.4 AST 20 ALT 40 Alkaline Phosphatase 110 Total Protein 7.2 Albumin 2.7 L COVID-19 Source Nasal/Nares SARS-CoV-2 (PCR) Negative
[2021-04-24 11:30] VITALS: BP 122/77; PULSE 87; RESP 16; TEMP 36.7; O2SAT 98
[2021-04-24] MEDS: Fluconazole 150 MG TAB PO (12:43)
[2021-04-24] MEDS: Normal Saline 500 ML 250 ML IV (14:44)
[2021-04-24 15:51] VITALS: BP 100/59; PULSE 80; RESP 16; TEMP 36.7; O2SAT 98
[2021-04-24 19:54] VITALS: BP 109/64; PULSE 76; RESP 16; TEMP 36.8
[2021-04-24] MEDS: Normal Saline Flush 10 ML SYR IVP ×2 (22:05→23:40)
[2021-04-24 23:41] VITALS: BP 118/74; PULSE 67; RESP 14; TEMP 36.5; O2SAT 99
[2021-04-25 04:18] VITALS: BP 116/67; PULSE 81; RESP 16; TEMP 37; O2SAT 98
[2021-04-25] MEDS: CLINDAMYCIN 900 MG/50 ML BAG 50 MG IVPB (06:11)
[2021-04-25] MEDS: Normal Saline Flush 10 ML SYR IVP (06:12)
[2021-04-25 07:24] VITALS: BP 122/75; PULSE 72; RESP 18; TEMP 36.8; O2SAT 97
[2021-04-25] MEDS: Ferrous Sulfate 325 MG TAB PO (08:21)
[2021-04-25] MEDS: Prenatal Multivitamin w/CA,FE TAB 1 TAB PO (08:21)
--- NOTE | 2021-04-25 08:28 | W.PM.DS.N ---
Date of service: 04/25/21 Time of Service: 08:29 DS: Diagnosis Discharge Diagnosis (1) Vaginal delivery: Status: Acute (2) Puerperal endometritis, condition or complication: Status: Acute Discharge Plan Disposition Patient Disposition: HOME Condition: Critical Discharge Details Reason For Visit: endometritis Admit Date/Time: 04/23/21 19:19 Admit Provider: Iris Rizvi Attending Provider: Iris Rizvi Primary Care Provider: Unknown,Unknown Hospital Course Hospital Course: 04/23/2021 admitted for fevers while at home x4 days. Normal WBC, afebrile while inpatient, Rx with tobramycin and clindamycin x48 hours. Discharge 04/25/2021 Home Meds and New Rx's Prescriptions: No Action medroxyprogesterone [Depo-Provera] 150 mg/mL syringe 150 mg IM [id number] Qty: 1 4RF doxycycline hyclate 100 mg capsule 100 mg PO BID 10 Days Qty: 20 0RF azithromycin [Zithromax] 500 mg tablet 1,000 mg PO ONCE Qty: 2 0RF prenat.vits,richmond,yll-dcdv-vdeuh Tablet 1 tab PO DAILY 0RF ferrous sulfate 324 mg (65 mg iron) tablet,delayed release (DR/EC) 324 mg PO DAILY Qty: 60 3RF Discharge Instructions Additional Instructions: Take her temperature and call the office if you are having symptoms of fever, chills, and shakes. You will be given a dose of fluconazole prior to discharge to prevent vaginal yeast infection. Keep your 6-week appointment that was previously scheduled. Nothing in the vagina until your 6-week appointment. Activity:: Activity as Tolerated Equipment/Supplies:: No Equipment Needed Diet:: As Tolerated Discharge Orders Discharge Orders: Discharge Order (Routine); Ordered 04/25/21 Ordered By: Brissa Curtis DS: Summary Time Spent with Patient providing and/or coordinating discharge services: Less than 30 minutes Status at Discharge Functional status at discharge: independent ambulation Overall status at discharge: patient is back to baseline Mental Status: mental status grossly normal Speech and Movement: speech and movement normal Mood: congruent mood Affect: normal affect Exam Const General: cooperative and no acute distress Nutritional Appearance: obese Orientation: alert, awake and oriented x3 Neck Neck: normal visual inspection Resp Effort & Inspection: normal respiratory effort Auscultation: clear to auscultation bilaterally Cardio Rate: regular rate Rhythm: regular rhythm Back/Spine/Pelvis Back: no CVA tenderness Skin General skin exam: no rashes or lesions noted Extrem General: normal to inspection and full ROM Psych Appearance: grossly normal Mental Status: mental status grossly normal Speech and Movement: speech and movement normal Mood: congruent mood Affect: normal affect Attitude: cooperative Thought Process: normal Thought Content: normal Insight: insight good Judgment: judgment good DS: Data Vitals/I&O Vitals and I&O: Vital Signs Temperature 98.2 F 04/25/21 07:24 Temperature Source Oral 04/25/21 07:24 Pulse 72 04/25/21 07:24 Pulse Rhythm Regular 04/25/21 04:18 Respiratory Rate 18 04/25/21 07:24 Respiratory Effort Non-Labored 04/25/21 04:18 Respiratory Depth Normal 04/25/21 04:18 Respiratory Pattern Normal 04/25/21 04:18 Blood Pressure 122/75 04/25/21 07:24 Pulse Oximetry 97 04/25/21 07:24 Oxygen Delivery Method Room Air 04/25/21 07:24 Oxygen Flow Rate 0 04/25/21 07:24 Pain Level 0 04/25/21 04:18 Comment 04/25/21 07:24 Intake & Output 04/24/21 04/24/21 04/25/21 11:59 23:59 11:59 Intake Total 1854 / 4072.667 2218.667 / 4072.667 152 / 152 Output Total 600 / 2900 2300 / 2900 Balance 1254 / 1172.667 -81.333 / 1172.667 152 / 152 Intake: IV 304 / 522.667 218.667 / 522.667 152 / 152 Oral 1550 / 3550 2000 / 3550 Output: Urine 600 / 2900 2300 / 2900 Other: Urine Appearance Clear Clear Data Completed and Pending Labs on day of discharge: 04/24/21 07:00 Urine - Clean Catch Urine Culture - Pending Preliminary micro results at discharge 04/24/21 07:00 Urine Culture - Pending Urine - Clean Catch PFSH All Active Problems (Updated 04/25/21 @ 08:33 by Brissa Curtis MD) Vaginal delivery (Acute) 04/08/21. . F. PPH 2/2 atony. Puerperal endometritis, condition or complication (Acute) 04/23/2021. Admitted for fevers while at home x4 days. Normal WBC, afebrile while inpatient, Rx with tobramycin and clindamycin x48 hours. Discharge 04/25/2021 Routine follow-up (Acute) Rubella non-immune status, antepartum (Acute) Anxiety (Chronic) discontinued effexor with BMI 31.0-31.9,adult (Acute) LGSIL on Pap smear of cervix (Acute) colposcopy 2020 Medical History (Updated 04/25/21 @ 08:33 by Brissa Curtis MD) Contraception (08/18/16) History of chicken pox (05/15/05) History of recurrent UTIs Keratosis pilaris (07/31/13) tiffany Lei rec Am LActin 4% every am with tretinoin 0.05% every hs Missed menses Penicillin adverse reaction rash Post-dates hemorrhage 2000ml, under 2 oxytocin, misoprostil, TXA, uterine massage Snoring Spontaneous onset of labor Term delivered UTI (urinary tract infection) Vaginal discharge during in first trimester Vaginal odor Vision problem wears glasses Well woman exam with routine gynecological exam Family History (Updated 09/03/20 @ 09:36 by Darby Busby CNM) Mother Essential hypertension stress related Healthy adult Father Healthy adult Other Personal history of malignant neoplasm pat uncle-brain Myocardial infarction PGGF Brother Penicillin allergy Social History Smoking/Tobacco Use Status: Never Smoking risk assessment performed?: Yes Drug use: Never Do you feel safe at home: Yes Do you feel safe in your relationship?: Yes Female Reproductive History Menstrual control method: none History History 2 Para 1 Hx # Term Pregnancies 1 Multiple births 0 Hx # Pregnancies 0 Ectopic pregnancies 0 AB induced 0 Hx Number of Living Children 1 AB spontaneous 1 Past Pregnancies Del. Date GA/Weeks # Outcome Route Wgt Sex Labor Lgth Anesthesia Location Prov Complic 04/08/21 41 No Successful vaginal 8 lb 11.86 oz Female 38hrs 28min regional [facility] hemorrhage Delivery Date: 04/08/21 Last Updated by: CYNTHIA Cabelloe Angela; Augmentation of labor due to inadequate ctx pattern; Nuchal cord x1 snug around neck,(slipped over shoulders easily when shoulders delivered) and wound around body; PPH, vaginal floor laceration noted, repaired with stitchesYamilet DO; Received TXA IVPB 1 gram
[2021-04-25] MEDS: Fluconazole 150 MG TAB PO (09:15)
== END 2021-04-25 09:30 | disposition home or self-care (01) | DRG 776 ==
PROVIDERS: Advanced Practice Midwife; Admitting Provider Obstetrics & Gynecology Gynecology; Visit Provider Obstetrics & Gynecology Gynecology
DX: O86.12 Endometritis following delivery (principal); O99.355 Diseases of the nervous system complicating the puerperium; G43.909 Migraine, unspecified, not intractable, without status migrainosus
CPT/HCPCS: 80053; 85027; 87635; 87086; G0378

== ENCOUNTER 2021-05-20 14:43 | Outpatient (REF) | payer MEDICAID, SELFPAY ==
--- NOTE | 2021-05-20 13:30 | PAPFT_PTH ---
PATIENT: Cayla Marquis V LOC: [facility] U#:[id number] AGE/SX: 20/F ROOM: RE05/20/[address]: Darby Busby : 2000 BED: DIS: 05/20/2021 SPEC #: [id number] RECD: 05/20/21 17:45 STATUS: RENETTA REQ #: [id number] ALVARADO: 05/20/21 13:[address]: Darby Busby DEPT: [facility] Cytology RECD BY: Ana Maya ENTERED: 05/20/21 17:45 SP TYPE: PAPFT GLADYS DR: Unknown,Unknown Tissues: 1 - CX/ENDOCX FOR PAP SMEARS Procedures: PAP THIN PREP/[facility] Screening Comments: [id number]
== END 2021-05-20 14:44 | disposition home or self-care (01) ==
LOC: LBN 14:43
PROVIDERS: Visit Provider Advanced Practice Midwife
DX: Z12.4 Encounter for screening for malignant neoplasm of cervix (principal)
CPT/HCPCS: 88142

== ENCOUNTER 2023-02-16 21:38 | Outpatient (CLI) | payer MEDICAID, SELFPAY ==
[2023-02-16 16:02] LABS: HCT 40.8 % (36.0-46.0); HGB 13.9 g/dL (11.2-15.7); MCH 30.4 pg (27.0-33.0); MCHC 34.1 % (32.0-36.0); MCV 89 fL (80-95); MPV 9.7 fL (8.0-11.0); Platelet Count 350 10^3/uL (130-400); RBC 4.57 10^6/uL (3.93-5.22); RDW 11.9 % (11.7-14.6); WBC 11.82 10^3/uL (4.4-10.8)
[2023-02-16 16:26] LABS: PROTEIN 18.1 mg/dL; Prot/Crea Ur Ratio 0.07
[2023-02-16 17:30] LABS: ALT 29 U/L (14-59); AST 14 U/L (15-37); Albumin 3.6 g/dL (3.4-5.0); Alkaline Phosphatase 71 U/L (46-116); Anion Gap 8.7 mmol/L (3-11); BUN 9 mg/dL (7-18); Bilirubin, Total 0.2 mg/dL (0.2-1.0); CO2 26.3 mmol/L (21.0-32.0); CREATININE 0.7 mg/dL (0.55-1.02); Calcium 9.7 mg/dL (8.5-10.1); Chloride 104 mmol/L (98-107); Estimated GFR 123.78 (mL/min/1.73m2); Glucose 103 mg/dL (74-106); Potassium 4.2 mmol/L (3.5-5.1); Sodium 139 mmol/L (136-145); Total Protein 7.2 g/dL (6.4-8.2)
[2023-02-16 17:32] LABS: HCG Quant, Pregnancy 21765 mIU/mL (1-3)
== END 2023-02-16 21:39 | disposition home or self-care (01) ==
LOC: LBO 21:39
PROVIDERS: Visit Provider Advanced Practice Midwife
DX: N92.6 Irregular menstruation, unspecified (principal); R03.0 Elevated blood-pressure reading, without diagnosis of hypertension
CPT/HCPCS: 36415; 80053; 85027; 82565; 84156; 84702

== ENCOUNTER 2023-03-23 01:44 | Outpatient (CLI) | payer MEDICAID, SELFPAY ==
[2023-03-23 15:18] LABS: Panorama Kit Sent via Fed Ex
[2023-03-23 15:22] LABS: Abs Immature Grans 0.03 10^3/uL (0.0-0.06); Absolute Eosinophil Count 0.13 10^3/uL (0.0-0.7); Absolute Lymphocyte Count 2.94 10^3/uL (1.2-3.4); Absolute Monocyte Count 0.85 10^3/uL (0.1-0.8); Absolute Neutrophil Count 6.93 10^3/uL (1.2-6.7); Basophils % 0.5; Eosinophils % 1.2; Immature Grans % 0.3; Lymphocytes % 26.9; MCH 30.5 pg (27.0-33.0); MCHC 34.2 % (32.0-36.0); MCV 89 fL (80-95); MPV 9.4 fL (8.0-11.0); Monocytes % 7.8; Neutrophils % 63.3; Platelet Count 303 10^3/uL (130-400); RBC 4.26 10^6/uL (3.93-5.22); RDW 12.1 % (11.7-14.6); RDW-SD 39.5 fL; WBC 10.94 10^3/uL (4.4-10.8)
[2023-03-23 15:27] LABS: Absolute Basophil Count 0.05 10^3/uL (0.0-0.2); Glucose,1 Hr (Glucola) 115 mg/dL (80-140)
[2023-03-23 16:37] LABS: ALT 31 U/L (14-59); AST 17 U/L (15-37); Albumin 3.2 g/dL (3.4-5.0); Alkaline Phosphatase 66 U/L (46-116); Anion Gap 10.4 mmol/L (3-11); BUN 7 mg/dL (7-18); Bilirubin, Total 0.3 mg/dL (0.2-1.0); CO2 25.6 mmol/L (21.0-32.0); CREATININE 0.6 mg/dL (0.55-1.02); Calcium 9.5 mg/dL (8.5-10.1); Chloride 103 mmol/L (98-107); Estimated GFR 128.46 (mL/min/1.73m2); Glucose 98 mg/dL (74-106); Potassium 3.6 mmol/L (3.5-5.1); Sodium 139 mmol/L (136-145); TSH (W/Ref FT4) 2.02 uIU/mL (0.36-3.74); Total Protein 7.4 g/dL (6.4-8.2)
[2023-03-23 22:14] LABS: Hepatitis B Surface Ag Negative (Negative)
[2023-03-23 22:41] LABS: Hepatitis C Ab w Rflx HCV PCR Negative (Negative)
[2023-03-23 23:05] LABS: HIV-1/2 Ag & Ab Screen Negative (Negative)
[2023-03-26 11:00] LABS: Rubella IgG Ab (UVM) Positive (See Note); Varicella IgG Antibody Positive (See Note)
[2023-03-26 19:02] LABS: Syphilis IgG w/Reflex Nonreactive (Nonreactive)
== END 2023-03-23 01:45 | disposition home or self-care (01) ==
LOC: LBO 01:45
PROVIDERS: Advanced Practice Midwife; Visit Provider Advanced Practice Midwife
DX: Z34.91 Encounter for supervision of normal pregnancy, unspecified, first trimester (principal)
CPT/HCPCS: 36415; 80053; 82950; 86787; 86803; 86850; 86900; 86901; 87340; 87389; 84443; 85025; 86762; 86780

== ENCOUNTER 2023-03-23 13:44 | Outpatient (REF) | payer MEDICAID, SELFPAY ==
[2023-03-23 20:19] LABS: PROTEIN 15.1 mg/dL; Prot/Crea Ur Ratio 0.05
[2023-03-23 20:30] LABS: *AMPHETAMINES SCREEN URINE Negative (Negative); *BARBITURATES SCREEN URINE Negative (Negative); *BENZODIAZEPINES SCREEN URINE Negative (Negative); Cannabinoids THC Negative (Negative); Cocaine Screen,Urine Negative (Negative); METHADONE URINE SCREEN Negative (Negative); OPIATES URINE SCREEN Negative (Negative); Tricyclic Antidepressants Negative (Negative)
[2023-03-26 13:54] LABS: Chlamydia Result Negative (Negative); GC Result Negative (Negative)
[2023-03-30 08:55] LABS: Buprenorphine Negative ng/mL (Cutoff: 5.0); Norbuprenorphine Negative ng/mL (Cutoff: 2.5)
== END 2023-03-23 13:45 | disposition home or self-care (01) ==
LOC: LBN 13:44
PROVIDERS: Visit Provider Advanced Practice Midwife
DX: O26.891 Other specified pregnancy related conditions, first trimester (principal); R03.0 Elevated blood-pressure reading, without diagnosis of hypertension; Z11.3 Encounter for screening for infections with a predominantly sexual mode of transmission; Z3A.10 10 weeks gestation of pregnancy
CPT/HCPCS: 80307; 80348; 87491; 87591; 82565; 84156; 87086

== ENCOUNTER 2023-04-20 01:12 | Outpatient (CLI) | payer MEDICAID, SELFPAY ==
[2023-04-23 14:51] LABS: AFP 29.8 ng/mL; Cigarette smoking status non-Smoker; GA used in risk estimate Scan estimate; IVF Pregnancy No; Insulin dependent diabetes No; Maternal Weight 255 lbs; Number of Fetuses 1; Prev Pregnancy w/NTD No
== END 2023-04-20 01:13 | disposition home or self-care (01) ==
LOC: LBO 01:12
PROVIDERS: Visit Provider Advanced Practice Midwife
DX: Z34.91 Encounter for supervision of normal pregnancy, unspecified, first trimester (principal)
CPT/HCPCS: 36415; 82105

== ENCOUNTER 2023-04-20 16:29 | Outpatient (REF) | payer MEDICAID, SELFPAY | END 2023-04-20 16:30 | disposition home or self-care (01) | LOC: LBN 16:29 | PROVIDERS: Visit Provider Advanced Practice Midwife | DX: O26.892 Other specified pregnancy related conditions, second trimester (principal); R30.0 Dysuria; Z3A.14 14 weeks gestation of pregnancy | CPT/HCPCS: 87086 ==

== ENCOUNTER → 2023-05-23 02:12 | Outpatient (CLI) | payer MEDICAID, SELFPAY ==
--- NOTE | 2023-05-23 07:30 | DI.US_ITS ---
Exam(s) US OB 2-3 TRIMESTER EXAM: US OB 2-3 TRIMESTER CLINICAL HISTORY: James,Z34.91. TECHNIQUE: Transabdominal obstetrical ultrasound performed. COMPARISON: US POCUS EXAM from 02/21/2023 US POCUS EXAM from 04/20/2023 FINDINGS: Number of fetuses: One. position: Variable Placental grade: 1 Placental location: Posterior. Tip of placenta measures 3.1 cm from internal os. BIOMETRIC DATA: BPD: 45mm = 19+ 4 weeks HC: 172mm = 19+ 5 weeks AC: 148mm = 20+ 1 weeks FL: 33mm = 20+ 2 weeks Cisterna Magna: 4.1 mm Cerebellum: 2.0 cm EFW: 333 grms 77% Composite Age: 20+ 0 weeks EDC by US: 10 October 2023 Heart Rate: !ErrorBPM Amniotic fluid : Amount of fluid is within normal limits. ANATOMICAL SURVEY: Four-chambered heart: Unremarkable. LVOT: Unremarkable. RVOT: Unremarkable. Left-sided stomach: Unremarkable. urinary bladder: Unremarkable. Bilateral kidneys: Unremarkable. Three-vessel cord: Unremarkable. Cord insertion: Unremarkable. Posterior fossa:Unremarkable. ventricles: Unremarkable. nose: Unremarkable. lips: Unremarkable. palate: Unremarkable. spine: Unremarkable. Two arms and two legs: Unremarkable. IMPRESSION: 1. Single live intrauterine gestation with composite age of 20 weeks 0 days.. 2. Normal anatomic survey. DATA REPOSITORY:
== END ==
PROVIDERS: Visit Provider Advanced Practice Midwife
DX: Z34.92 Encounter for supervision of normal pregnancy, unspecified, second trimester (principal); Z3A.20 20 weeks gestation of pregnancy
CPT/HCPCS: 76805

== ENCOUNTER 2023-05-23 04:39 | Outpatient (CLI) | payer MEDICAID, SELFPAY ==
[2023-05-23 14:41] LABS: HCT 37.4 % (36.0-46.0); HGB 12.7 g/dL (11.2-15.7); MCH 31.1 pg (27.0-33.0); MCV 91 fL (80-95); MPV 9.7 fL (8.0-11.0); Platelet Count 288 10^3/uL (130-400); RBC 4.09 10^6/uL (3.93-5.22); RDW 12.6 % (11.7-14.6); RDW-SD 42.1 fL; WBC 11.98 10^3/uL (4.4-10.8)
[2023-05-23 15:25] LABS: ALT 23 U/L (14-59); AST 13 U/L (15-37); Alkaline Phosphatase 74 U/L (46-116); Anion Gap 9.5 mmol/L (3-11); BUN 6 mg/dL (7-18); Bilirubin, Total 0.2 mg/dL (0.2-1.0); CO2 24.5 mmol/L (21.0-32.0); CREATININE 0.5 mg/dL (0.55-1.02); Calcium 9.4 mg/dL (8.5-10.1); Chloride 104 mmol/L (98-107); Estimated GFR 134.23 (mL/min/1.73m2); Glucose 110 mg/dL (74-106); Sodium 138 mmol/L (136-145); Total Protein 7.1 g/dL (6.4-8.2)
[2023-05-25 14:40] LABS: AFP 59.6 ng/mL; Cigarette smoking status non-Smoker; GA used in risk estimate Scan estimate; IVF Pregnancy No; Initial or repeat testing Initial testing; Insulin dependent diabetes No; Maternal Weight 256 lbs; Number of Fetuses 1; Prev Pregnancy w/NTD No; RECOMMENDED FOLLOW UP None.; Results Summary Normal risk
== END 2023-05-23 04:40 | disposition home or self-care (01) ==
PROVIDERS: Visit Provider Advanced Practice Midwife
DX: O26.892 Other specified pregnancy related conditions, second trimester (principal); R03.0 Elevated blood-pressure reading, without diagnosis of hypertension; Z3A.19 19 weeks gestation of pregnancy; Z36.89 Encounter for other specified antenatal screening
CPT/HCPCS: 36415; 80053; 85027; 82105

== ENCOUNTER 2023-05-23 14:48 | Outpatient (REF) | payer MEDICAID, SELFPAY ==
[2023-05-23 16:34] LABS: COMMENT (LAB VIEW ONLY) 129.94 mg/dL; PROTEIN 17.9 mg/dL; Prot/Crea Ur Ratio 0.13
== END 2023-05-23 14:49 | disposition home or self-care (01) ==
LOC: LBN 14:48
PROVIDERS: Visit Provider Advanced Practice Midwife
DX: O26.892 Other specified pregnancy related conditions, second trimester (principal); R03.0 Elevated blood-pressure reading, without diagnosis of hypertension; Z3A.19 19 weeks gestation of pregnancy
CPT/HCPCS: 82565; 84156

== ENCOUNTER 2023-07-20 02:29 | Outpatient (CLI) | payer MEDICAID, SELFPAY ==
[2023-07-20 10:49] LABS: Glucose,1 Hr (Glucola) 135 mg/dL (80-140)
[2023-07-20 11:11] LABS: HCT 34.9 % (36.0-46.0); HGB 11.9 g/dL (11.2-15.7); MCH 31.2 pg (27.0-33.0); MCHC 34.1 % (32.0-36.0); MCV 91 fL (80-95); MPV 10.3 fL (8.0-11.0); Platelet Count 293 10^3/uL (130-400); RBC 3.82 10^6/uL (3.93-5.22); RDW-SD 42.7 fL; WBC 10.68 10^3/uL (4.4-10.8)
== END 2023-07-20 02:30 | disposition home or self-care (01) ==
LOC: LBO 02:29
PROVIDERS: Visit Provider Advanced Practice Midwife
DX: Z34.90 Encounter for supervision of normal pregnancy, unspecified, unspecified trimester (principal)
CPT/HCPCS: 36415; 82950; 85027

== ENCOUNTER 2023-07-31 04:50 | Outpatient (CLI) | payer MEDICAID, SELFPAY ==
[2023-07-31 12:12] LABS: Glucose 1 Hour 162 mg/dL
[2023-07-31 13:36] LABS: Glucose 3 Hour 61 mg/dL
== END 2023-07-31 04:51 | disposition home or self-care (01) ==
LOC: LBO 04:50
PROVIDERS: Visit Provider Advanced Practice Midwife
DX: Z34.92 Encounter for supervision of normal pregnancy, unspecified, second trimester (principal); Z3A.28 28 weeks gestation of pregnancy
CPT/HCPCS: 36410; 82951

== ENCOUNTER → 2023-09-07 00:04 | Outpatient (CLI) | payer MEDICAID, SELFPAY ==
--- OUTSIDE RECORDS SUMMARY | 2023-09-07 00:05 | XMS_ITS | Clinical Summary ---
Author Organization [facility] Address [address] [place] [id number] Care Team Providers Care Collections Attorney Name Role Phone Unknown, Provider Primary Care Provider [phone] Social History Tobacco Use Types Packs/Day Years Used Date Smoking Tobacco: Never Assessed Sex and Gender Information Value Date Recorded Sex Assigned at Not on file Gender Identity Not on file Sexual Orientation Not on file Plan of Treatment Health Maintenance Due Date Last Done Comments Hepatitis B Vaccine (1 of 3 - 19+ 3-dose series) 2017 COVID-19 Vaccine (2022- season) 2022 Hepatitis C Screen Completed 03/23/2023, 09/03/2020 Procedures Procedure Name Priority Date/Time Associated Diagnosis Comments HEPATITIS C AB W REFLEX TO HCV RNA BY PCR Routine 03/23/2023 15:00 EST from Last 3 Months or Most Recently Relevant to Health Maintenance Results * HEPATITIS C AB W REFLEX TO HCV RNA BY PCR (03/23/2023 15:00 EST) Hep C Antibody Negative Negative 03/23/2023 22:37 EST [facility] Blood VENOUS BLOOD / Unknown 03/23/2023 15:00 EST 03/23/2023 21:12 EST Provider Outr Resulting Lab CHEMISTRY & BLOOD GAS ORDERABLES [facility] [address] [place] [address] from Last 3 Months or Most Recently Relevant to Health Maintenance Care Teams Collections Attorney Relationship Specialty Start Date End Date Unknown, Provider, PCP - General 06/24/15
--- OUTSIDE RECORDS SUMMARY | 2023-09-07 00:05 | XMS_ITS | Encounter Summary ---
Author Organization [facility] Address [address] [place] [id number] Care Team Providers Care Microwave Oven Assembler Name Role Phone Unknown, Provider Primary Care Provider Encounter Details Date Type Department Care Team (Late st Contact Info) Description 03/24/2023 Lab Requisition [facility] Pathology & Laboratory Medicine - [address] [phone] Outr Resulting Lab, Provider Social History Tobacco Use Types Packs/Day Years Used Date Smoking Tobacco: Never Assessed Sex and Gender Information Value Date Recorded Sex Assigned at Not on file Gender Identity Not on file Sexual Orientation Not on file documented as of this encounter Plan of Treatment Not on file documented as of this encounter Procedures Procedure Name Priority Date/Time Associated Diagnosis Comments CHLAMYDIA/N. GONORRHOEAE AMPLIFIED NUCLEIC ACID Routine 03/23/2023 13:20 EST documented in this encounter Results * CHLAMYDIA/N. GONORRHOEAE AMPLIFIED RNA (03/23/2023 13:20 EST) Neisseria gonorrhoeae Result Negative Negative 03/26/2023 13:49 EST [facility] Chlamydia trachomatis Result Negative Negative 03/26/2023 13:49 EST [facility] Swab VAGINAL STRUCTURE / Unknown 03/23/2023 13:20 EST 03/25/2023 16:58 EST Provider Outr Resulting Lab MICROBIOLOGY - GENERAL ORDERABLES [facility] [address] [place] [address] documented in this encounter Visit Diagnoses Not on filedocumented in this encounter Care Teams Microwave Oven Assembler Relationship Specialty Start Date End Date Unknown, Provider, PCP - General 06/24/15 documented as of this encounter
--- OUTSIDE RECORDS SUMMARY | 2023-09-07 00:05 | XMS_ITS | Referral Summary ---
Author Organization [facility] Address [address] [place] [address] Care Team Providers Care Chopper Gun Operator Name Role Phone Unknown, Provider Primary Care Provider [phone] Social History Tobacco Use Types Packs/Day Years Used Date Smoking Tobacco: Never Assessed Sex and Gender Information Value Date Recorded Sex Assigned at Not on file Gender Identity Not on file Sexual Orientation Not on file Plan of Treatment Not on file Procedures Procedure Name Priority Date/Time Associated Diagnosis Comments HEPATITIS C AB W REFLEX TO HCV RNA BY PCR Routine 03/23/2023 15:00 EST from Last 3 Months or Most Recently Relevant to Health Maintenance Results * HEPATITIS C AB W REFLEX TO HCV RNA BY PCR (03/23/2023 15:00 EST) Hep C Antibody Negative Negative 03/23/2023 22:37 EST [facility] Blood VENOUS BLOOD / Unknown 03/23/2023 15:00 EST 03/23/2023 21:12 EST Provider Outr Resulting Lab CHEMISTRY & BLOOD GAS ORDERABLES [facility] [address] [place] [address] from Last 3 Months or Most Recently Relevant to Health Maintenance Care Teams Chopper Gun Operator Relationship Specialty Start Date End Date Unknown, Provider, PCP - General 06/24/15
--- OUTSIDE RECORDS SUMMARY | 2023-09-07 00:06 | XMS_ITS | Encounter Summary ---
Author Organization [facility] Address [address] [place] [address] Care Team Providers Care Long Filler Cigar Roller Machine Name Role Phone Unknown, Provider Primary Care Provider Encounter Details Date Type Department Care Team (Late st Contact Info) Description 09/03/2020 Lab Requisition [facility] Pathology & Laboratory Medicine - [address] [phone] Outr Resulting Lab, Provider Social History Tobacco [...] REFLEX TO HCV RNA BY PCR Routine 09/03/2020 11:07 EDT HEPATITIS B SURFACE ANTIGEN Routine 09/03/2020 11:07 EDT documented in this encounter Results * HEPATITIS B SURFACE ANTIGEN (09/03/2020 11:07 EDT) Hep B Surface Ag Negative Negative 09/06/2020 12:11 EDT [facility] Blood VENOUS BLOOD / Unknown 09/03/2020 11:07 EDT 09/03/2020 20:53 EDT Provider Outr Resulting Lab CHEMISTRY & BLOOD GAS ORDERABLES [facility] [address] [place] [address] * HEPATITIS C AB W REFLEX TO HCV RNA BY PCR (09/03/2020 11:07 EDT) Hep C Antibody Negative Negative 09/06/2020 10:10 EDT [facility] Blood VENOUS BLOOD / Unknown 09/03/2020 11:07 EDT 09/03/2020 20:53 EDT Provider Outr Resulting Lab CHEMISTRY & BLOOD GAS ORDERABLES [facility] [address] [place] [address] documented in this encounter Visit Diagnoses Not on filedocumented in this encounter Care Teams Long Filler Cigar Roller Machine Relationship Specialty Start Date End Date Unknown, Provider, PCP - General 06/24/15 documented as of this encounter
--- OUTSIDE RECORDS SUMMARY | 2023-09-07 00:06 | XMS_ITS | Encounter Summary ---
Author Organization [facility] Address [address] [place] [address] Care Team Providers Care Technical Service Representative Name Role Phone Unknown, Provider Primary Care Provider [phone] Encounter Details Date Type Department Care Team (Late st Contact Info) Description 03/23/2023 Lab Requisition [facility] Pathology & Laboratory Medicine - [address] [phone] Outr Resulting Lab, Provider Social History Tobacco [...] Procedure Name Priority Date/Time Associated Diagnosis Comments RUBELLA IGG ANTIBODY Routine 03/23/2023 15:00 EST VARICELLA IGG ANTIBODY Routine 03/23/2023 15:00 EST documented in this encounter Results * VARICELLA IGG ANTIBODY (03/23/2023 15:00 EST) Varicella IgG Ab Positive See Note 03/26/2023 10:54 EST [facility] Comment:Presence of detectab le Varicella Zoster virus IgG antibodies. Blood VENOUS BLOOD / Unknown 03/23/2023 15:00 EST 03/23/2023 21:14 EST Provider Outr Resulting Lab IMMUNOLOGY A ND SEROLOGY ORDERABLES [facility] [address] [place] [address] * RUBELLA IGG ANTIBODY (03/23/2023 15:00 EST) Rubella IgG Ab Positive See Note 03/26/2023 10:55 EST [facility] Comment:Positive for IgG ant ibodies to Rubella virus. Blood VENOUS BLOOD / Unknown 03/23/2023 15:00 EST 03/23/2023 21:14 EST Provider Outr Resulting Lab CHEMISTRY & BLOOD GAS ORDERABLES Performing Organization Address City/State/[facility] Co de Phone Number [facility] [address] [place] [address] documented in this encounter Visit Diagnoses Not on filedocumented in this encounter Care Teams Technical Service Representative Relationship Specialty Start Date End Date Unknown, Provider, PCP - General 06/24/15 documented as of this encounter
--- OUTSIDE RECORDS SUMMARY | 2023-09-07 00:06 | XMS_ITS | Encounter Summary ---
Author Organization [facility] Address [address] [place] [address] Care Team Providers Care German Tutor Name Role Phone Unknown, Provider Primary Care Provider [phone] Encounter Details Date Type Department Care Team (Late st Contact Info) Description 03/23/2023 Lab Requisition [facility] Pathology & Laboratory Medicine - [address] [phone] Outr Resulting Lab, Provider Social History Tobacco [...] Procedure Name Priority Date/Time Associated Diagnosis Comments HIV 1/2 ANTIGEN AND ANTIBODY, 4TH GENERATION Routine 03/23/2023 15:00 EST documented in this encounter Results * HIV 1/2 ANTIGEN AND ANTIBODY, 4TH GENERATION (03/23/2023 15:00 EST) HIV 1 and 2 Antibody/p24 Antigen, 4th Generation Negative Negative 03/23/2023 22:59 EST [facility] Comment:If acute HIV-1 infec tion is suspected in a high risk patient, submit plasma specimen for HIV-1 RNA quantitation test. Blood VENOUS BLOOD / Unknown 03/23/2023 15:00 EST 03/23/2023 21:14 EST Narrative [facility] - 03/23/2023 22:59 EST Fourth Generation assay performed on the Siemens ITI Techaur XPT. Provider Outr Resulting Lab IMMUNOLOGY A ND SEROLOGY ORDERABLES [facility] [address] [place] [address] documented in this encounter Visit Diagnoses Not on filedocumented in this encounter Care Teams German Tutor Relationship Specialty Start Date End Date Unknown, Provider, PCP - General 06/24/15 documented as of this encounter
--- OUTSIDE RECORDS SUMMARY | 2023-09-07 00:06 | XMS_ITS | Encounter Summary ---
Author Organization [facility] Address [address] [place] [address] Care Team Providers Care Marsh Buggy Operator Name Role Phone Unknown, Provider Primary Care Provider Encounter Details Date Type Department Care Team (Late st Contact Info) Description 03/19/2020 Lab Requisition [facility] Pathology & Laboratory Medicine - [address] [address] Brittney Correa [address] [place] [address] [place] [address] Encounter for other general examination Social History Tobacco Use Types Packs/Day Years Used Date Smoking Tobacco: Never Assessed Sex and Gender Information Value Date Recorded Sex Assigned at Not on file Gender Identity Not on file Sexual Orientation Not on file documented as of this encounter Plan of Treatment Not on file documented as of this encounter Procedures Procedure Name Priority Date/Time Associated Diagnosis Comments SURGICAL PATHOLOGY Today 03/19/2020 14 :30 EST Encounter for other general examination documented in this encounter Results * SURGICAL PATHOLOGY (03/19/2020 14:30 EST) Final Diagnosis A. CERVIX, 12 O'CLOCK, BIOPSY: - Benign squamous mucosa. See comment. B. ENDOCERVIX, CURETTAGE: - Fragments of benign endocervical mucosa. 03/23/2020 11:47 EST [facility] Diagnosis Comment Deeper levels of block (A) were reviewed. The referring Pap smear ([id number]) was reviewed and the low-grade squamous intraepithelial lesion confirmed. 03/23/2020 11:47 [facility] Attestation By the signature below, the attending physician certifies that they have 1) personally conducted a gross and/or microscopic examination of the described specimen(s), and/or personally interpreted the results of laboratory testing of the described specimen(s), and 2) personally rendered or confirmed the above diagnosis. 03/23/2020 11:47 [facility] at 1147 Clinical History LSIL 03/23/2020 11:47 [facility] Gross Description A. Received in formalin labelled with proper patient identification (initials C, D) and cervical bx 12 o'clock is a single white tissue fragment (0.2 x 0.2 x 0.1 cm). Submitted intact in A1. B. Received in formalin labelled with proper patient identification (initials C, D) and ECC is an aggregate of dempsey translucent mucinous tissue (1.4 x 1.2 x 0.3 cm). Submitted entirely in B1 and B2. NOLVIA HARMON(ASCP) 03/20/2020 15:07 03/23/2020 11:47 [facility] Performing Lab [facility] 11:47 [facility] Scanned Images 03/23/2020 11:47 [facility] Tissue ENTIRE ENDOCERVIX / Unknown 03/19/2020 14:30 EST 03/19/2020 22:43 EST Tissue specimen (specimen) ENDOCERVICAL STRUCTURE / Unknown 03/19/2020 14:30 EST 03/19/2020 22:43 EST Brittney Correa PATHOLOGY ORDERABLES [facility] [address] [place] [address] documented in this encounter Visit Diagnoses Diagnosis Encounter for other general examination documented in this encounter Care Teams Marsh Buggy Operator Relationship Specialty Start Date End Date Unknown, Provider, PCP - General 06/24/15 documented as of this encounter
--- OUTSIDE RECORDS SUMMARY | 2023-09-07 00:06 | XMS_ITS | Encounter Summary ---
Author Organization [facility] Address [address] [place] [address] Care Team Providers Care Credit Review Officer Name Role Phone Unknown, Provider Primary Care Provider Encounter Details Date Type Department Care Team (Late st Contact Info) Description 09/03/2020 Lab Requisition [facility] Pathology & Laboratory Medicine - [address] [phone] Outr Resulting Lab, Provider Social History Tobacco [...] 1/2 ANTIGEN AND ANTIBODY, 4TH GENERATION Routine 09/03/2020 11:07 EDT documented in this encounter Results * HIV 1/2 ANTIGEN AND ANTIBODY, 4TH GENERATION (09/03/2020 11:07 EDT) HIV 1 and 2 Antibody/p24 Antigen, 4th Generation Negative Negative 09/06/2020 14:08 EDT [facility] Comment: If acute HIV-1 infection is suspected in a high risk ??patient, submit plasma specimen for HIV-1 RNA quantitation test. Fourth Generation assay performed on the Siemens [employer]aur. Blood VENOUS BLOOD / Unknown 09/03/2020 11:07 EDT 09/03/2020 20:53 EDT Provider Outr Resulting Lab IMMUNOLOGY A ND SEROLOGY ORDERABLES [facility] [address] [place] [address] documented in this encounter Visit Diagnoses Not on filedocumented in this encounter Care Teams Credit Review Officer Relationship Specialty Start Date End Date Unknown, Provider, PCP - General 06/24/15 documented as of this encounter
--- OUTSIDE RECORDS SUMMARY | 2023-09-07 00:06 | XMS_ITS | Encounter Summary ---
Author Organization [facility] Address [address] [place] [address] Care Team Providers Care Antisqueak Applier Name Role Phone Unknown, Provider Primary Care Provider Encounter Details Date Type Department Care Team (Late st Contact Info) Description 03/10/2020 Lab Requisition [facility] Pathology & Laboratory Medicine - [address] [address] Brittney Correa [address] [place] [address] [place] [address] Encounter for other general examination [...] Procedure Name Priority Date/Time Associated Diagnosis Comments PAP TEST Today 03/09/2020 10:20 EST Encounter for other general examination documented in this encounter Results * PAP TEST (03/09/2020 10:20 EST) Specimens A. Cervix and/or Endocervix , ThinPrep Imaging System with Manual Evaluation 03/18/2020 10:[address] [facility] Specimen Adequacy Satisfactory for Evaluation - transformation zone component present 03/18/2020 10:[address] [facility] General Categorization Epithelial Cell Abnormality 03/18/2020 10:[address] [facility] Descriptive Diagnosis Squamous Cell Abnormality - Low grade squamous intraepithelial lesion (LSIL). 03/18/2020 10:02 [facility] Educational Comments [facility] recommends following ASCCP's 2012 Updated Consensus Guidelines for the Management of Abnormal Cervical Cancer Screening Tests and Cancer Precursors (JLGTD, 2013; 17(5):S1-S27). Consensus guidelines are available online at www.asccp.org. 03/18/2020 10:02 [facility] Attestation By the signature below, the attending physician certifies that they have personally conducted a gross and/or microscopic examination of the described specimens and rendered or confirmed the above diagnosis. 03/18/2020 10:02 [facility] at 1002 Clinical History See below 03/18/19 10:02 [facility] Performing Lab [facility] 03/18/2020 10:02 [facility] Scanned Images 03/18/2020 10:02 [facility] Papanicolaou smear specimen (specimen) CERVIX UTERI STRUCTURE / Unknown 03/09/2020 10:20 EST 03/10/2020 14:53 EST Brittney Correa PATHOLOGY ORDERABLES Performing Organization Address City/State/[facility] Co de Phone Number [facility] [address] [place] [address] documented in this encounter Visit Diagnoses Diagnosis Encounter for other general examination documented in this encounter Care Teams Antisqueak Applier Relationship Specialty Start Date End Date Unknown, Provider, PCP - General 06/24/15 documented as of this encounter
--- OUTSIDE RECORDS SUMMARY | 2023-09-07 00:06 | XMS_ITS | Encounter Summary ---
[place] [address] Care Team Providers Care Residential Designer Name Role Phone Reji Collado MD Primary Care Provider [phone] Encounter Details Date Type Department Care Team (Late st Contact Info) Description 07/29/2013 4:15 PM EDT Office Visit Dermatology at [address] [id number] Shon Lei MD [address] [place] [address] [place] [address] Keratosis pilaris (Primary Dx) Social History Tobacco Use Types Packs/Day Years Used Date Smoking Tobacco: Never Assessed Sex and Gender Information Value Date Recorded Sex Assigned at Not on file Gender Identity Not on file Sexual Orientation Not on file documented as of this encounter Progress Notes * Shon Lei MD - 07/30/2013 8:01 AM EDT Problem: Keratosis pilaris. Cayla is a 13-year-old who has had a lifelong history of keratosis pilaris. She has tried emollient creams but without much benefit. She is here today with her father, whom I have seen as patient in the past, wondering what else might be available to help with this. Physical examination reveals a pleasant 13-year-old who has keratosis pilaris on the lateral arms most prominently and forearms. Less so on the lateral thighs. A little bit on the lateral cheeks. She has no eczema. Assessment and Plan: Keratosis pilaris. a. Discussed diagnosis. b. Recommend that we begin AmLactin 4% cream, applying on a q.a.m. basis, and in the evenings apply tretinoin 0.05% cream. 45 grams dispensed with five refills to apply on a q.h.s. basis. c. Discussed that this will improve in time. Counseled patient. Explained that we can treat this symptomatically but that it will take time to improve on its own. Return to clinic p.r.n. COPY: Reji Collado M.D. documented in this encounter Plan of Treatment Not on file documented as of this encounter Visit Diagnoses Diagnosis Keratosis pilaris- Primary Other specified congenital anomaly of skin documented in this encounter Care Teams Residential Designer Relationship Specialty Start Date End Date Reji Collado MD [address] [place] [address] PCP - General 07/29/13 07/11/21 documented as of this encounter
--- OUTSIDE RECORDS SUMMARY | 2023-09-07 00:06 | XMS_ITS | Clinical Summary ---
[place] [address] Care Team Providers Care Guitar Repairer Name Role Phone Unknown Primary Care Provider Unavailabl e Allergies No known active allergies Medications No known medications Active Problems Problem Noted Date Diagnosed Date Keratosis pilaris 07/30/2013 Social History Tobacco Use Types Packs/Day Years Used Date Smoking Tobacco: Never Assessed Sex and Gender Information Value Date Recorded Sex Assigned at Not on file Gender Identity Not on file Sexual Orientation Not on file Plan of Treatment Health Maintenance Due Date Last Done Comments Chlamydia Screening 2013 HPV vaccine (1 - 3-dose series) 2013 HIV screen 2016 Hepatitis C Screening 2016 Hepatitis B vaccine (0-59 yrs) (1) 2017 Tdap adult 2017 Tetanus vaccine 2017 PAP Smear 05/25/2019 Covid-19 Vaccine ( - 2022-24 season) 2022 Influenza (Flu) vaccine (1 o f 1 - Influenza standard series) 10/28/2023 Care Teams Guitar Repairer Relationship Specialty Start Date End Date Unknown None PCP - General 07/12/21
--- OUTSIDE RECORDS SUMMARY | 2023-09-07 00:06 | XMS_ITS | Encounter Summary ---
Author Organization [facility] Address [address] [place] [address] Care Team Providers Care Bag Valver Name Role Phone Unknown, Provider Primary Care Provider [phone] Encounter Details Date Type Department Care Team (Late st Contact Info) Description 09/03/2020 Lab Requisition [facility] Pathology & Laboratory Medicine - [address] [phone] Outr Resulting Lab, Provider Social History Tobacco [...] Associated Diagnosis Comments RUBELLA IGG ANTIBODY Routine 09/03/2020 11:07 EDT VARICELLA IGG ANTIBODY Routine 09/03/2020 11:07 EDT documented in this encounter Results * VARICELLA IGG ANTIBODY (09/03/2020 11:07 EDT) Varicella IgG Ab Positive See Note 09/06/2020 10:10 EDT [facility] Comment:Presence of detectab le Varicella Zoster virus IgG antibodies. Blood VENOUS BLOOD / Unknown 09/03/2020 11:07 EDT 09/03/2020 20:53 EDT Provider Outr Resulting Lab IMMUNOLOGY A ND SEROLOGY ORDERABLES [facility] [address] [place] [address] * RUBELLA IGG ANTIBODY (09/03/2020 11:07 EDT) Rubella IgG Ab Negative See Note 09/06/2020 10:15 EDT [facility] Comment:Sample is considered negative for IgG antibodies to Rubella virus. A negative result presumes that immunity has not been acquired. If exposure to Rubella virus is suspected despite a negative finding, a second specimen should be collected and tested for Rubella IgG Ab one or two weeks later. Blood VENOUS BLOOD / Unknown 09/03/2020 11:07 EDT 09/03/2020 20:53 EDT Provider Outr Resulting Lab CHEMISTRY & BLOOD GAS ORDERABLES Performing Organization Address [facility] de Phone Number [facility] [address] [place] [address] documented in this encounter Visit Diagnoses Not on filedocumented in this encounter Care Teams Bag Valver Relationship Specialty Start Date End Date Unknown, Provider, PCP - General 06/24/15 documented as of this encounter
--- OUTSIDE RECORDS SUMMARY | 2023-09-07 00:06 | XMS_ITS | Encounter Summary ---
Author Organization [facility] Address [address] [place] [address] Care Team Providers Care Asphalt Dauber Name Role Phone Unknown, Provider Primary Care Provider [phone] Encounter Details Date Type Department Care Team (Late st Contact Info) Description 03/23/2023 Lab Requisition [facility] Pathology & Laboratory Medicine - [address] [phone] Outr Resulting Lab, Provider Social History Tobacco [...] RNA BY PCR Routine 03/23/2023 15:00 EST HEPATITIS B SURFACE ANTIGEN Routine 03/23/2023 15:00 EST documented in this encounter Results * HEPATITIS B SURFACE ANTIGEN (03/23/2023 15:00 EST) Hep B Surface Ag Negative Negative 03/23/2023 22:09 EST [facility] Blood VENOUS BLOOD / Unknown 03/23/2023 15:00 EST 03/23/2023 21:12 EST Provider Outr Resulting Lab CHEMISTRY & BLOOD GAS ORDERABLES [facility] [address] [place] [address] * HEPATITIS C AB W REFLEX TO HCV RNA BY PCR (03/23/2023 15:00 EST) Hep C Antibody Negative Negative 03/23/2023 22:37 EST [facility] Blood VENOUS BLOOD / Unknown 03/23/2023 15:00 EST 03/23/2023 21:12 EST Provider Outr Resulting Lab CHEMISTRY & BLOOD GAS ORDERABLES Performing Organization Address City/State/[facility] Co de Phone Number [facility] [address] [place] [address] documented in this encounter Visit Diagnoses Not on filedocumented in this encounter Care Teams Asphalt Dauber Relationship Specialty Start Date End Date Unknown, Provider, PCP - General 06/24/15 documented as of this encounter
--- OUTSIDE RECORDS SUMMARY | 2023-09-07 00:06 | XMS_ITS | Encounter Summary ---
Author Organization [facility] Address [address] [place] [address] Care Team Providers Care Contact Lens Fitter Name Role Phone Unknown, Provider Primary Care Provider [phone] Encounter Details Date Type Department Care Team (Late st Contact Info) Description 05/23/2021 Lab Requisition [facility] Pathology & Laboratory Medicine - [address] [address] [address] [place] [address] Encounter for other general examination Social History [...] Date/Time Associated Diagnosis Comments PAP TEST Today 05/20/2021 13:30 EDT Encounter for other general examination documented in this encounter Results * PAP TEST (05/20/2021 13:30 EDT) Specimens A. Cervix and/or Endocervix , ThinPrep Imaging System with Manual Evaluation 05/25/2021 15:17 T [facility] Specimen Adequacy Satisfactory for Evaluation - transformation zone component present Scant squamous epithelial component, contamination present, possibly lubricant 05/25/2021 15:17 EDT [facility] General Categorization Negative for intraepithelial lesion or malignancy 05/25/2021 15:17 [facility] Attestation . 05/25/2021 15:17 EDT [facility] at 1517 Clinical History SEE BELOW 05/26/19 15:17 EDT [facility] Performing Lab [facility] 05/25/2021 15:17 EDT [facility] Scanned Images 05/25/2021 15:17 EDT [facility] Papanicolaou smear specimen (specimen) CERVIX UTERI STRUCTURE / Unknown 05/20/2021 13:30 EDT 05/23/2021 14:39 EDT Darby Busby [facility] [address] [place] [address] documented in this encounter Visit Diagnoses Diagnosis Encounter for other general examination documented in this encounter Care Teams Contact Lens Fitter Relationship Specialty Start Date End Date Unknown, Provider, PCP - General 06/24/15 documented as of this encounter
--- OUTSIDE RECORDS SUMMARY | 2023-09-07 00:06 | XMS_ITS | Encounter Summary ---
Author Organization [facility] Address [address] [place] [address] Care Team Providers Care Set Illustrator Name Role Phone Unavailable Primary Care Provider Unavailabl e Encounter Details Date Type Department Care Team (Latest Contact Info) Description 06/18/2002 6:00 EDT - 06/18/2002 11:59 EDT Hospital Encounter [address] [address] Peña Morales, DDZainab [address] [place] [address] Discharge Disposition: Auto Discharge Social History Tobacco Use Types Packs/Day Years Used Date Smoking Tobacco: Never Assessed Sex and Gender Information Value Date Recorded Sex Assigned at Not on file Gender Identity Not on file Sexual Orientation Not on file documented as of this encounter Discharge Disposition Disposition Code Departure Means Destination Auto Discharge documented in this encounter Plan of Treatment Not on file documented as of this encounter Visit Diagnoses Not on filedocumented in this encounter
--- OUTSIDE RECORDS SUMMARY | 2023-09-07 00:06 | XMS_ITS | Encounter Summary ---
Author Organization [facility] Address [address] [place] [address] Care Team Providers Care Campus Supervisor Name Role Phone Unknown, Provider Primary Care Provider Encounter Details Date Type Department Care Team (Late st Contact Info) Description 09/03/[address] [facility] Pathology & Laboratory Medicine - [address] [address] Outr Resulting Lab, Provider Social History Tobacco [...] Comments CHLAMYDIA/N. GONORRHOEAE AMPLIFIED NUCLEIC ACID Routine 09/03/2020 10:25 EDT documented in this encounter Results * CHLAMYDIA/N. GONORRHOEAE AMPLIFIED RNA (09/03/2020 10:25 EDT) Neisseria gonorrhoeae Result Negative Negative 09/06/2020 13:57 EDT [facility] Chlamydia trachomatis Result Negative Negative 09/06/2020 13:57 EDT [facility] Swab ENTIRE ENDOCERVIX / Unknown 09/03/2020 10:25 EDT 09/03/2020 21:21 EDT Provider Outr Resulting Lab MICROBIOLOGY - GENERAL ORDERABLES [facility] [address] [place] [address] documented in this encounter Visit Diagnoses Not on filedocumented in this encounter Care Teams Campus Supervisor Relationship Specialty Start Date End Date Unknown, Provider, PCP - General 06/24/15 documented as of this encounter
--- OUTSIDE RECORDS SUMMARY | 2023-09-07 00:06 | XMS_ITS | Encounter Summary ---
[place] [address] Care Team Providers Care Customer Experience Manager Name Role Phone Unknown Primary Care Provider Unavailabl e Reason for Referral * Allergy Testing (Routine) - Authorized Specialty Diagnoses / Procedures Referred By Nadege t Referred To Contact Allergy Diagnoses Encounter for supervision of normal , antepartum, unspecified ADVERSE EFFECT OF PENCILLINS - PT IS Darby Orr CNM [employer] [facility] [address] [place] [address] [facility] [address] [place] [address] Referral ID Status Reason Start Date Expiration Date Visits Requested Visits Authorized [id number] Authorized Consult, Test & Treat PCP Updated and/or Approved 03/29/2023 03/28/2024 6 6 Encounter Details Date Type Department Care Team (Late st Contact Info) Description 03/29/2023 Transcribe Orders eDH Incoming Referrals [phone] Darby Orr CNM [address] [place] [address] [address] [place], [place] [id number] Encounter for supervision of normal , antepartum, unspecified Social History Tobacco Use Types Packs/Day Years Used Date Smoking Tobacco: Never Assessed Sex and Gender Information Value Date Recorded Sex Assigned at Not on file Gender Identity Not on file Sexual Orientation Not on file documented as of this encounter Plan of Treatment Scheduled Referrals Name Type Priority Associated Diagnoses Orde r Schedule Referral to Allergy Outpatient Referral Routine Encounter for supervision of normal , antepartum, unspecified Ordered: 03/29/2023 documented as of this encounter Visit Diagnoses Diagnosis Encounter for supervision of normal , antepartum, unspecified documented in this encounter Care Teams Customer Experience Manager Relationship Specialty Start Date End Date Unknown None PCP - General 07/12/21 documented as of this encounter
--- NOTE | 2023-09-07 06:45 | DI.US_ITS ---
Exam(s) US OB GRICELDA WEIGHT EXAM: US OB GRICELDA WEIGHT CLINICAL HISTORY: size greater than dates,z34.90. TECHNIQUE: Transabdominal obstetrical ultrasound performed. COMPARISON: US US OB 2-3 TRIMESTER from 05/23/2023 FINDINGS:: Number of fetuses: One. position: Vertex. Placental location: Posterior. No evidence of previa. BIOMETRIC DATA: BPD: 93mm = 37+ 5 weeks HC: 344mm = 39+ 6 weeks AC: 356mm = 38+ 4 weeks FL: 71 mm = 36+ 2 weeks EFW: 3394 Gm = greater than 97% Composite Age: 38+ 1 weeks ASIF: 20 September 2023 Heart Rate: 127BPM Amniotic fluid index: 19.8 cm. Amount of fluid is visually within normal limits. IMPRESSION: size and weight are above the expected range. DATA REPOSITORY:
== END ==
PROVIDERS: Visit Provider Advanced Practice Midwife
DX: Z34.90 Encounter for supervision of normal pregnancy, unspecified, unspecified trimester (principal)
CPT/HCPCS: 76816

== ENCOUNTER 2023-09-14 11:19 | Outpatient (REF) | payer MEDICAID, SELFPAY | END 2023-09-14 11:20 | disposition home or self-care (01) | LOC: LBN 11:19 | PROVIDERS: Visit Provider Advanced Practice Midwife | DX: Z34.93 Encounter for supervision of normal pregnancy, unspecified, third trimester (principal); Z3A.35 35 weeks gestation of pregnancy; Z36.85 Encounter for antenatal screening for Streptococcus B | CPT/HCPCS: 87081 ==

== ENCOUNTER 2023-09-21 07:10 | Outpatient (CLI) | payer MEDICAID, SELFPAY ==
[2023-09-21 10:21] VITALS: BP 125/60; PULSE 99; TEMP 36.9
[2023-09-21 10:37] VITALS: BP 125/60; PULSE 99
--- NOTE | 2023-09-21 11:43 | W.OBNST ---
Date of service: 09/21/23 Time of Service: 11:43 NST Evaluation Reason for NST Reasons for Nonstress Test: OTHER, SEE COMMENT Reason for NST Other: LGA, previous GRICELDA nearly 20, checking for trend Gestational Age Gestational Age in Weeks and Days: 36 Weeks and 6Days Test and Monitor Explained Test/Monitor Explained: Test Explained, Monitor Explained and Patient Verbalized Understanding Vital Signs Blood Pressure: 125/60 Pulse: 99 Temperature: 98.4 F NST Information Date on Monitor: 09/21/23 Time on Monitor: 10: Date off Monitor: 09/21/23 Time off Monitor: 10:58 Total Time on Monitor: 32 NST Interventions: None NST Evaluation Patient States Movement: Present FHR Baseline: 145 Variability: Moderate 6-25 bpm Accelerations: 15x15 Decelerations: None NST Results: Reactive Note Ultrasound Done: GRICELDA Total GRICELDA: 19.2 Other Pertinent Findings: Heart Rate (145), Presentation (LOP) and Placental Location (posterior) Coding for GRICELDA w/NST: Completed Exam. NST Note NST Reviewed and Verified by: Iris Rizvi
[2023-09-21 11:44] VITALS: BP 125/60; PULSE 99; TEMP 36.9
== END 2023-09-21 12:13 ==
LOC: BCD 07:11 → OBS 08:32
PROVIDERS: Visit Provider Advanced Practice Midwife
DX: O36.63X0 Maternal care for excessive fetal growth, third trimester, not applicable or unspecified (principal); Z3A.36 36 weeks gestation of pregnancy
CPT/HCPCS: 59025; 76815

== ENCOUNTER 2023-10-05 21:22 | Inpatient (IN) | payer MEDICAID, SELFPAY ==
--- OUTSIDE RECORDS SUMMARY | 2023-10-05 21:45 | XMS_ITS | Encounter Summary ---
Author Organization [facility] Address [address] [place] [address] Care Team Providers Care Juice Weigher Name Role Phone Unknown, Provider Primary Care Provider Encounter Details Date Type Department Care Team (Late st Contact Info) Description 03/19/2020 Lab Requisition [facility] Pathology & Laboratory Medicine - [address] [address] Brittney Correa [address] [place] [address] [place] [address] Encounter for other general examination [...] of benign endocervical mucosa. 03/23/2020 11:47 EST [facility] Diagnosis Comment Deeper levels of block (A) were reviewed. The referring Pap smear ([id number]) was reviewed and the low-grade squamous intraepithelial lesion confirmed. 03/23/2020 11:47 [facility] Attestation By the signature below, the attending physician certifies that they have 1) personally conducted a gross and/or microscopic examination of the described specimen(s), and/or personally interpreted the results of laboratory testing of the described specimen(s), and 2) personally rendered or confirmed the above diagnosis. 03/23/2020 11:47 [facility] at 1147 Clinical History LSIL 03/23/2020 11:47 [facility] Gross Description A. Received [...] B2. NOLVIA HARMON(ASCP) 03/20/2020 15:07 03/23/2020 11:47 [facility] Performing Lab [facility] 11:47 [facility] Scanned Images 03/23/2020 11:47 [facility] Tissue ENTIRE ENDOCERVIX / Unknown 03/19/2020 14:30 EST 03/19/2020 22:43 EST Tissue specimen (specimen) ENDOCERVICAL STRUCTURE / Unknown 03/19/2020 14:30 EST 03/19/2020 22:43 EST Brittney Correa PATHOLOGY ORDERABLES [facility] [address] [place] [address] documented in this encounter Visit Diagnoses Diagnosis Encounter for other general examination documented in this encounter Care Teams Juice Weigher Relationship Specialty Start Date End Date Unknown, Provider, PCP - General 06/24/15 documented as of this encounter
--- OUTSIDE RECORDS SUMMARY | 2023-10-05 21:45 | XMS_ITS | Encounter Summary ---
Author Organization [facility] Address [address] [place] [address] Care Team Providers Care Cream Gatherer Name Role Phone Unknown, Provider Primary Care Provider [phone] Encounter Details Date Type Department Care Team (Late st Contact Info) Description 09/03/2020 Lab Requisition [facility] Pathology & Laboratory Medicine - [address] [id number] Outr Resulting Lab, Provider Social History Tobacco [...] Surface Ag Negative Negative 09/06/2020 12:11 EDT [facility] Blood VENOUS BLOOD / Unknown 09/03/2020 11:07 EDT 09/03/2020 20:53 EDT Provider Outr Resulting Lab CHEMISTRY & BLOOD GAS ORDERABLES [facility] [address] [place] [address] * HEPATITIS C AB W REFLEX TO HCV RNA BY PCR (09/03/2020 11:07 EDT) Hep C Antibody Negative Negative 09/06/2020 10:10 EDT [facility] Blood VENOUS BLOOD / Unknown 09/03/2020 11:07 EDT 09/03/2020 20:53 EDT Provider Outr Resulting Lab CHEMISTRY & BLOOD GAS ORDERABLES [facility] [address] [place] [address] documented in this encounter Visit Diagnoses Not on filedocumented in this encounter Care Teams Cream Gatherer Relationship Specialty Start Date End Date Unknown, Provider, PCP - General 06/24/15 documented as of this encounter
--- OUTSIDE RECORDS SUMMARY | 2023-10-05 21:45 | XMS_ITS | Encounter Summary ---
Author Organization [facility] Address [address] [place] [address] Care Team Providers Care It Network Engineer Name Role Phone Unknown, Provider Primary Care Provider Encounter Details Date Type Department Care Team (Late st Contact Info) Description 03/10/2020 Lab Requisition [facility] Pathology & Laboratory Medicine - [address] [address] Brittney Correa [address] [place] [address] [place] [address] Encounter for other general examination [...] System with Manual Evaluation 03/18/2020 10:02 EST [facility] Specimen Adequacy Satisfactory for Evaluation - transformation zone component present 03/18/2020 10:02 EST [facility] General Categorization Epithelial Cell Abnormality 03/18/2020 10:02 EST [facility] Descriptive Diagnosis Squamous Cell Abnormality - Low grade squamous intraepithelial lesion (LSIL). 03/18/2020 10:02 [facility] Educational Comments [facility] recommends following ASCCP's 2012 Updated Consensus Guidelines for the Management of Abnormal Cervical Cancer Screening Tests and Cancer Precursors (JLGTD, 2013; 17(5):S1-S27). Consensus guidelines are available online at www.asccp.org. 03/18/2020 10:02 [facility] Attestation By the signature below, the attending physician certifies that they have personally conducted a gross and/or microscopic examination of the described specimens and rendered or confirmed the above diagnosis. 03/18/2020 10:02 [facility] at 1002 Clinical History See below 03/18/19 10:02 [facility] Performing Lab [facility] 03/18/2020 10:02 [facility] Scanned Images 03/18/2020 10:02 [facility] Papanicolaou smear specimen (specimen) CERVIX UTERI STRUCTURE / Unknown 03/09/2020 10:20 EST 03/10/2020 14:53 EST Brittney Correa PATHOLOGY ORDERABLES Performing Organization Address City/State/[facility] Co de Phone Number [facility] [address] [place] [address] documented in this encounter Visit Diagnoses Diagnosis Encounter for other general examination documented in this encounter Care Teams It Network Engineer Relationship Specialty Start Date End Date Unknown, Provider, PCP - General 06/24/15 documented as of this encounter
--- OUTSIDE RECORDS SUMMARY | 2023-10-05 21:45 | XMS_ITS | Referral Summary ---
Author Organization [facility] Address [address] [place] [address] Care Team Providers Care Sewing Machine Repairer Helper Name Role Phone Unknown, Provider Primary Care Provider [phone] Social History Tobacco Use Types Packs/Day Years [...] C Antibody Negative Negative 03/23/2023 22:37 EST [facility] Blood VENOUS BLOOD / Unknown 03/23/2023 15:00 EST 03/23/2023 21:12 EST Provider Outr Resulting Lab CHEMISTRY & BLOOD GAS ORDERABLES [facility] [address] [place] [address] from Last 3 Months or Most Recently Relevant to Health Maintenance Care Teams Sewing Machine Repairer Helper Relationship Specialty Start Date End Date Unknown, Provider, PCP - General 06/24/15
--- OUTSIDE RECORDS SUMMARY | 2023-10-05 21:45 | XMS_ITS | Encounter Summary ---
Author Organization [facility] Address [address] [place] [address] Care Team Providers Care Materials Specialist Name Role Phone Unknown, Provider Primary Care Provider Encounter Details Date Type Department Care Team (Late st Contact Info) Description 03/23/2023 Lab Requisition [facility] Pathology & Laboratory Medicine - [address] [phone] Outr Resulting Lab, Provider Social History Tobacco [...] Surface Ag Negative Negative 03/23/2023 22:09 EST [facility] Blood VENOUS BLOOD / Unknown 03/23/2023 15:00 EST 03/23/2023 21:12 EST Provider Outr Resulting Lab CHEMISTRY & BLOOD GAS ORDERABLES [facility] [address] [place] [address] * HEPATITIS C AB W REFLEX TO HCV RNA BY PCR (03/23/2023 15:00 EST) Hep C Antibody Negative Negative 03/23/2023 22:37 EST [facility] Blood VENOUS BLOOD / Unknown 03/23/2023 15:00 EST 03/23/2023 21:12 EST Provider Outr Resulting Lab CHEMISTRY & BLOOD GAS ORDERABLES Performing Organization Address City/State/[facility] Co de Phone Number [facility] [address] [place] [address] documented in this encounter Visit Diagnoses Not on filedocumented in this encounter Care Teams Materials Specialist Relationship Specialty Start Date End Date Unknown, Provider, PCP - General 06/24/15 documented as of this encounter
--- OUTSIDE RECORDS SUMMARY | 2023-10-05 21:45 | XMS_ITS | Encounter Summary ---
Author Organization [facility] Address [address] [place] [address] Care Team Providers Care Marbleizer Name Role Phone Unknown, Provider Primary Care Provider Encounter Details Date Type Department Care Team (Late st Contact Info) Description 09/03/2020 Lab Requisition [facility] Pathology & Laboratory Medicine - [address] [id number] Outr Resulting Lab, Provider Social History Tobacco [...] gonorrhoeae Result Negative Negative 09/06/2020 13:57 EDT [facility] Chlamydia trachomatis Result Negative Negative 09/06/2020 13:57 EDT [facility] Swab ENTIRE ENDOCERVIX / Unknown 09/03/2020 10:25 EDT 09/03/2020 21:21 EDT Provider Outr Resulting Lab MICROBIOLOGY - GENERAL ORDERABLES [facility] [address] [place] [address] documented in this encounter Visit Diagnoses Not on filedocumented in this encounter Care Teams Marbleizer Relationship Specialty Start Date End Date Unknown, Provider, PCP - General 06/24/15 documented as of this encounter
--- OUTSIDE RECORDS SUMMARY | 2023-10-05 21:45 | XMS_ITS | Encounter Summary ---
[place] [address] Care Team Providers Care Stain Dipper Name Role Phone Unknown Primary Care Provider Unavailabl e Reason for Referral * Allergy Testing (Routine) - Authorized Specialty Diagnoses / Procedures Referred By Nadege t Referred To Contact Allergy Diagnoses Encounter for supervision of normal , antepartum, unspecified ADVERSE EFFECT OF PENCILLINS - PT [facility] [address] [place] [address] [facility] [address] [place] [address] Referral ID Status Reason Start Date Expiration Date Visits Requested Visits Authorized [id number] Authorized Consult, Test & Treat PCP Updated and/or Approved 03/29/2023 03/28/2024 6 6 Encounter Details Date Type Department Care Team (Late st Contact Info) Description 03/29/2023 Transcribe Orders eDH Incoming Referrals [phone] Darby Orr CNM [address] [place] [address] [address] [place], [place] [id number] Encounter for supervision of normal , antepartum, [...] unspecified documented in this encounter Care Teams Stain Dipper Relationship Specialty Start Date End Date Unknown None PCP - General 07/12/21 documented as of this encounter
--- OUTSIDE RECORDS SUMMARY | 2023-10-05 21:45 | XMS_ITS | Clinical Summary ---
[place] [address] Care Team Providers Care Retail Department Supervisor Name Role Phone Unknown Primary Care Provider [...] - Influenza standard series) 10/28/2023 Care Teams Retail Department Supervisor Relationship Specialty Start Date End Date Unknown None PCP - General 07/12/21
--- OUTSIDE RECORDS SUMMARY | 2023-10-05 21:45 | XMS_ITS | Encounter Summary ---
Author Organization [facility] Address [address] [place] [address] Care Team Providers Care White Washer Name Role Phone Unknown, Provider Primary Care Provider Encounter Details Date Type Department Care Team (Late st Contact Info) Description 03/23/2023 Lab Requisition [facility] Pathology & Laboratory Medicine - [address] [phone] Outr Resulting Lab, Provider Social History Tobacco [...] 4th Generation Negative Negative 03/23/2023 22:59 EST [facility] Comment:If acute HIV-1 infec tion is suspected in a high risk patient, submit plasma specimen for HIV-1 RNA quantitation test. Blood VENOUS BLOOD / Unknown 03/23/2023 15:00 EST 03/23/2023 21:14 EST Narrative [facility] - 03/23/2023 22:59 EST Fourth Generation assay performed on the Siemens medineeringaur XPT. Provider Outr Resulting Lab IMMUNOLOGY A ND SEROLOGY ORDERABLES [facility] [address] [place] [address] documented in this encounter Visit Diagnoses Not on filedocumented in this encounter Care Teams White Washer Relationship Specialty Start Date End Date Unknown, Provider, PCP - General 06/24/15 documented as of this encounter
--- OUTSIDE RECORDS SUMMARY | 2023-10-05 21:45 | XMS_ITS | Clinical Summary ---
Author Organization [facility] Address [address] [place] [address] Care Team Providers Care Food Processing Plant Manager Name Role Phone Unknown, Provider Primary Care Provider [phone] Social History Tobacco Use Types Packs/Day Years [...] C Antibody Negative Negative 03/23/2023 22:37 EST [facility] Blood VENOUS BLOOD / Unknown 03/23/2023 15:00 EST 03/23/2023 21:12 EST Provider Outr Resulting Lab CHEMISTRY & BLOOD GAS ORDERABLES [facility] [address] [place] [address] from Last 3 Months or Most Recently Relevant to Health Maintenance Care Teams Food Processing Plant Manager Relationship Specialty Start Date End Date Unknown, Provider, PCP - General 06/24/15
--- OUTSIDE RECORDS SUMMARY | 2023-10-05 21:45 | XMS_ITS | Encounter Summary ---
Author Organization [facility] Address [address] [place] [address] Care Team Providers Care Window Sash Installer Name Role Phone Unknown, Provider Primary Care Provider [phone] Encounter Details Date Type Department Care Team (Late st Contact Info) Description 03/24/2023 Lab Requisition [facility] Pathology & Laboratory Medicine - [address] [address] Outr Resulting Lab, Provider Social History Tobacco [...] gonorrhoeae Result Negative Negative 03/26/2023 13:49 EST [facility] Chlamydia trachomatis Result Negative Negative 03/26/2023 13:49 EST [facility] Swab VAGINAL STRUCTURE / Unknown 03/23/2023 13:20 EST 03/25/2023 16:58 EST Provider Outr Resulting Lab MICROBIOLOGY - GENERAL ORDERABLES [facility] [address] [place] [address] documented in this encounter Visit Diagnoses Not on filedocumented in this encounter Care Teams Window Sash Installer Relationship Specialty Start Date End Date Unknown, Provider, PCP - General 06/24/15 documented as of this encounter
--- OUTSIDE RECORDS SUMMARY | 2023-10-05 21:45 | XMS_ITS | Encounter Summary ---
Author Organization [facility] Address [address] [place] [address] Care Team Providers Care Tree Shear Operator Name Role Phone Unknown, Provider Primary Care Provider [phone] Encounter Details Date Type Department Care Team (Late st Contact Info) Description 03/23/2023 Lab Requisition [facility] Pathology & Laboratory Medicine - [address] [address] Outr Resulting Lab, Provider Social History Tobacco [...] Ab Positive See Note 03/26/2023 10:54 EST [facility] Comment:Presence of detectab le Varicella Zoster virus IgG antibodies. Blood VENOUS BLOOD / Unknown 03/23/2023 15:00 EST 03/23/2023 21:14 EST Provider Outr Resulting Lab IMMUNOLOGY A ND SEROLOGY ORDERABLES [facility] [address] [place] [address] * RUBELLA IGG ANTIBODY (03/23/2023 15:00 EST) Rubella IgG Ab Positive See Note 03/26/2023 10:55 EST [facility] Comment:Positive for IgG ant ibodies to Rubella virus. Blood VENOUS BLOOD / Unknown 03/23/2023 15:00 EST 03/23/2023 21:14 EST Provider Outr Resulting Lab CHEMISTRY & BLOOD GAS ORDERABLES Performing Organization Address City/State/[facility] Co de Phone Number [facility] [address] [place] [address] documented in this encounter Visit Diagnoses Not on filedocumented in this encounter Care Teams Tree Shear Operator Relationship Specialty Start Date End Date Unknown, Provider, PCP - General 06/24/15 documented as of this encounter
--- OUTSIDE RECORDS SUMMARY | 2023-10-05 21:45 | XMS_ITS | Encounter Summary ---
Author Organization [facility] Address [address] [place] [address] Care Team Providers Care Catering Cook Name Role Phone Unknown, Provider Primary Care Provider Encounter Details Date Type Department Care Team (Late st Contact Info) Description 09/03/2020 Lab Requisition [facility] Pathology & Laboratory Medicine - [address] [phone] Outr Resulting Lab, Provider Social History Tobacco [...] 4th Generation Negative Negative 09/06/2020 14:08 EDT [facility] Comment: If acute HIV-1 infection is suspected in a high risk ??patient, submit plasma specimen for HIV-1 RNA quantitation test. Fourth Generation assay performed on the Siemens Anna Lozabaiaur. Blood VENOUS BLOOD / Unknown 09/03/2020 11:07 EDT 09/03/2020 20:53 EDT Provider Outr Resulting Lab IMMUNOLOGY A ND SEROLOGY ORDERABLES [facility] [address] [place] [address] documented in this encounter Visit Diagnoses Not on filedocumented in this encounter Care Teams Catering Cook Relationship Specialty Start Date End Date Unknown, Provider, PCP - General 06/24/15 documented as of this encounter
--- OUTSIDE RECORDS SUMMARY | 2023-10-05 21:45 | XMS_ITS | Encounter Summary ---
Author Organization [facility] Address [address] [place] [address] Care Team Providers Care Crane Assembler Name Role Phone Unknown, Provider Primary Care Provider [phone] Encounter Details Date Type Department Care Team (Late st Contact Info) Description 09/03/2020 Lab Requisition [facility] Pathology & Laboratory Medicine - [address] [phone] Outr Resulting Lab, Provider Social History Tobacco [...] Ab Positive See Note 09/06/2020 10:10 EDT [facility] Comment:Presence of detectab le Varicella Zoster virus IgG antibodies. Blood VENOUS BLOOD / Unknown 09/03/2020 11:07 EDT 09/03/2020 20:53 EDT Provider Outr Resulting Lab IMMUNOLOGY A ND SEROLOGY ORDERABLES [facility] [address] [place] [address] * RUBELLA IGG ANTIBODY (09/03/2020 11:07 EDT) Rubella IgG Ab Negative See Note 09/06/2020 10:15 EDT [facility] Comment:Sample is considered negative [...] & BLOOD GAS ORDERABLES Performing Organization Address [facility] [address]/[facility] de Phone Number [facility] [address] [place] [address] documented in this encounter Visit Diagnoses Not on filedocumented in this encounter Care Teams Crane Assembler Relationship Specialty Start Date End Date Unknown, Provider, PCP - General 06/24/15 documented as of this encounter
--- OUTSIDE RECORDS SUMMARY | 2023-10-05 21:45 | XMS_ITS | Encounter Summary ---
Author Organization [facility] Address [address] [place] [address] Care Team Providers Care Delivery Crew Member Name Role Phone Unknown, Provider Primary Care Provider [phone] Encounter Details Date Type Department Care Team (Late st Contact Info) Description 05/23/2021 Lab Requisition [facility] Pathology [facility] Laboratory Medicine - [address] [address] [address] [place] [address] Encounter for other general examination Social History [...] System with Manual Evaluation 05/25/2021 15:17 T [facility] Specimen Adequacy Satisfactory for Evaluation - transformation zone component present Scant squamous epithelial component, contamination present, possibly lubricant 05/25/2021 15:17 EDT [facility] General Categorization Negative for intraepithelial lesion or malignancy 05/25/2021 15:17 [facility] Attestation . 05/25/2021 15:17 EDT [facility] at 1517 Clinical History SEE BELOW 05/26/19 15:17 EDT [facility] Performing Lab [facility] 05/25/2021 15:17 EDT [facility] Scanned Images 05/25/2021 15:17 EDT [facility] Papanicolaou smear specimen (specimen) CERVIX UTERI STRUCTURE / Unknown 05/20/2021 13:30 EDT 05/23/2021 14:39 EDT Darby Busby [facility] O[facility] JEAN [facility] [address] [place] [address] documented in this encounter Visit Diagnoses Diagnosis Encounter for other general examination documented in this encounter Care Teams Delivery Crew Member Relationship Specialty Start Date End Date Unknown, Provider, PCP - General 06/24/15 documented as of this encounter
--- OUTSIDE RECORDS SUMMARY | 2023-10-05 21:45 | XMS_ITS | Encounter Summary ---
[place] [address] Care Team Providers Care Field Crop Grower Name Role Phone Reji Collado MD Primary Care Provider [phone] Encounter Details Date Type Department Care Team (Late st Contact Info) Description 07/29/2013 4:15 PM EDT Office Visit Dermatology at [address] [place] [id number] Shon Lei MD [address], [place] [address] Keratosis pilaris (Primary Dx) Social History Tobacco [...] skin documented in this encounter Care Teams Field Crop Grower Relationship Specialty Start Date End Date Reji Collado MD [address] [place] [address] PCP - General 07/29/13 07/11/21 documented as of this encounter
--- OUTSIDE RECORDS SUMMARY | 2023-10-05 21:45 | XMS_ITS | Encounter Summary ---
Author Organization [facility] Address [address] [place] [address] Care Team Providers Care Audio Tape Librarian Name Role Phone Unavailable Primary Care Provider Unavailabl e Encounter Details Date Type Department Care Team (Latest Contact Info) Description 06/18/2002 6:00 EDT - 06/18/2002 11:59 EDT Hospital Encounter [address] [address] Peña Morales, DDZainab [address] [place] [address] Discharge Disposition: Auto Discharge Social History Tobacco [...]
[2023-10-05 21:47] VITALS: BP 141/84; PULSE 92; RESP 16; TEMP 37; O2SAT 97
[2023-10-05 21:50] VITALS: BP 141/84; PULSE 92
[2023-10-05 21:55] VITALS: PULSE 93
--- NOTE | 2023-10-05 22:21 | W.PM.OBHPL1 ---
Date of service: 10/05/23 Time of Service: 22:21 Assessment and Plan Assessment and plan (1) PROM with onset of labor within 24 hours of rupture: Status: Acute Assessment and plan: A: 23 yo @ 39 wks; category 1 tracing SROM @ 1840 clear, early labor sx onset @ 2030 Low risk for SD, moderate risk for PPH d/t hx P: Admit to BC, CBC, T&S, establish IV access early in labor Expectant management through the night Consider pitocin augmentation if indicated in the morning Comfort measures as pt requests Anticipate Qualifiers: PROM gestational age: full term Qualified Code(s): O42.02 - Full-term premature rupture of membranes, onset of labor within 24 hours of rupture OB-HPI Labor/Delivery History of Present Illness Reason for Visit: LABOR Chief Complaint: Suspected Rupture of Membranes , Associated Signs and Symptoms of Suspected ROM: large gush @ 1840 and constant trickling since, lower abd cramping began at 2029, no vomiting, no bleeding.. ASIF Calculator Estimated Delivery Date Method Current WG Current Estimate 10/13/23 Ultrasound #1 38w 6d Other Estimates 09/29/23 LMP (Certain) 40w 6d History of Present Expected Delivery Route/Plan - CNM FOB/partner - Beny Potter (2nd child together) BB no circ Hopes for unmedicated but open to epidural if needed- would like to use to the tub this time. GBS negative Specific Issues/Plan 1. Hx PPH with previous delivery 2. BMI 39, early [id number], prefers room temperature glucola drink 2a. 28 weeks- 1 hour 27w 135 will do 3h GTT: 92/162,133, 61 3. Low dose ASA due to baseline BP elevation and BMI 4. Referral to [facility] allergy for PCN testing done 5. Had several IV sticks with previous labor, veins kept blowing, TUGBOAT ENGINEER consult 08/16 & upon admission in labor 6. cfDNA low risk x5 male, AFP drawn too early (<15 wks), redrawn 05/22=nml risk for NTD 7. Not interested in consult this time Assessment: History Reviewed & Current Review of Systems Narrative: ROS completed and noncontributory other than HPI PFSH All Active Problems (Updated 10/05/23 @ 22:34 by Iris Rizvi) PROM with onset of labor within 24 hours of rupture (Acute) Fundal height high for dates (Acute) Back pain affecting (Acute) Stage 1 hypertension (Acute) (Acute) Obesity, morbid, BMI 40.0-49.9 (Acute) Anxiety (Chronic) discontinued effexor with BMI 31.0-31.9,adult (Acute) LGSIL on Pap smear of cervix (Acute) colposcopy 2020 Medical History (Updated 10/05/23 @ 22:34 by Iris Rizvi) History of abnormal cervical Pap smear Elevated blood pressure reading Family history of hypertension in mother Dysuria during Missed menses Penicillin adverse reaction rash History of recurrent UTIs Keratosis pilaris (07/31/13) evallie Lei rec Am LActin 4% every am with tretinoin 0.05% every hs History of chicken pox (05/15/05) Snoring Vision problem wears glasses Family History Mother Essential hypertension stress related Healthy adult Hemochromatosis Father Healthy adult Other Personal history of malignant neoplasm pat uncle-brain Myocardial infarction PGGF Brother Penicillin allergy Social History Smoking/Tobacco Use Status: Never Smoking risk assessment performed?: Yes Drug use: Never Do you feel safe at home: Yes Do you feel safe in your relationship?: Yes Female Reproductive History Menstrual control method: none History History 2 Para 1 Hx # Term Pregnancies 1 Multiple births 0 Hx # Pregnancies 0 Ectopic pregnancies 0 AB induced 0 Hx Number of Living Children 1 AB spontaneous 1 Past Pregnancies Del. Date GA/Weeks # Preg Succ Route Wgt Sex Labor Lgth Anesthesia Location Prov Complic 04/08/21 41 No Yes vaginal 8 lb 11.86 oz Female 38hrs 28min regional [facility] hemorrhage Delivery Date: 04/08/21 Last Updated by: Darby Busby CNM Teeteeisraelangelina Miller: pit sep, epidural kind of worked, PPH, vaginal lac repaired by MD; Received TXA EBL 1900 Meds Allergies and Home Medications Allergies Allergy/AdvReac Type Severity Reaction Status Date / Time amoxicillin Allergy Intermediate Hives Verified 10/05/23 09:46 cillins AdvReac Unknown pt states Uncoded 10/05/23 09:46 swelling and rash with all the cillins Home Medications ?Medication ?Instructions ?Recorded ?Confirmed ?Type vitamin no.180-ferrous 1 tab PO DAILY #90 tabs 03/08/23 10/05/23 Rx fumarate 27 mg-folic acid 1 mg tablet ( Plus Vitamin-Mineral) aspirin 81 mg tablet,delayed 81 mg PO DAILY #90 tabs 03/23/23 10/05/23 Rx release (Adult Aspirin Regimen) loperamide 2 mg capsule 2 mg PO Q6H PRN loose stool #6 caps 09/29/23 10/05/23 Rx (Anti-Diarrheal (loperamide)) ondansetron 8 mg disintegrating 8 mg PO Q8H PRN nausea and 09/29/23 10/05/23 Rx tablet vomiting #10 tabs Exam Physical Exam Vital signs: Temp Pulse Resp BP Pulse Ox 98.6 F 93 H 16 141/84 H 97 10/05/23 21:47 10/05/23 21:55 10/05/23 21:47 10/05/23 21:50 10/05/23 21:47 Vital Signs Reviewed: Yes Constitutional Constitutional: mild distress, obese and cooperative Detailed Labor and Delivery Exam Dilation: 5 Effacement (%): 90 station: -3 Cervix position: anterior Consistency: soft Amniotic Membrane Status: Ruptured Rupture Method: Spontaneous Amniotic Fluid: Clear Nitrazine: Positive Ferning: Present Contraction Frequency(min): q4 Contraction Duration(sec): 60 Contraction Intensity: Mild/Moderate Fetus A Heart Rate Baseline: 140 Monitor Accelerations: 15 X 15 Monitor Decelerations: None Variability: Moderate (6-25 BPM) Presentation: Cephalic Categories: Category I Est. Weight: 9 lb 0.623 oz Est. Weight: 4100 gms Date of Membrane Rupture: 10/05/23 Time of Membrane Rupture: 18:40 HEENT Exam HEENT Exam: Normal Neck Exam Neck Exam: Normal Chest/Brest/Axilla Exam Chest Exam: Normal Breast Exam Breast Exam: Not Done Respiratory Exam Respiratory Exam: Normal Cardiovascular Exam Cardiovascular Exam: Normal Abdominal Exam Abdominal Exam: Normal (Gravid, S>D, nontender) Rectal Exam Rectal Exam: Normal Exam Exam: Normal Extremities Exam Extremities Exam: Normal Back/Spine/Pelvis Exam Back Exam: Normal Skin Exam Skin Exam: Normal Neurological Exam Neurological Exam: Normal Psychiatric Exam Psychiatric Exam: Normal Results Results Group Beta Strep: Negative Blood Type: O+ Rubella Status: Immune Varicella Immunity: Immune Lab Results: Early glucola nml, 28 wk glucola 135, 3 hr GTT nml x4 values Risk Assessment Risk for Shoulder Dystocia Historical/Initial OB: POSITIVE FOR: Pre- BMI>30; NEGATIVE FOR: Pelvic Abnormality, Previous Shoulder Dystocia or Previous Macrosomia 36 Weeks: NEGATIVE FOR: Current Gestational DM, EFW>4500gms or Maternal Weight Gain>40lbs Increased Risk?: No Delivery Plan @ 36wks: planned. Risk for Pre-Eclampsia Date Initiated/Initials: 03/23/23 Yes, if one or more: POSTIVE FOR: Hx Pre-E/Gest HTN; NEGATIVE FOR: Chronic HTN, Multiple Gestation, Pre-gestational DM, Renal Disease, Systemic Lupus or APA Syndrome Yes, if 2 or more: POSITIVE FOR: BMI>30 and Mother/Sister w/ Pre-E; NEGATIVE FOR: Nulliparity, Age>= 35 yrs, >10yr btwn pregnancies, ethinicty or Previous IUGR Risk for Post- Hemorrhage Initial: POSITIVE FOR: Previous PPH; NEGATIVE FOR: Multiple Gestation, Known Clotting Deficiency, Grand Multiparity or Anticoagulation 36 Weeks: NEGATIVE FOR: Anemia, hgb<10, Low platelets(thrombocytopenia), Gestational HTN or Pre-E, Polyhydraminios or EFW>4500gms At Risk?: Yes (due to hx and to LGA fetus) Counseled re: Active Management: Yes (03/23/23 PUNEET) Date/Initials: 03/23/23 Risks Reviewed Risks Reviewed Upon Admission: Yes
[2023-10-05 22:33] LABS: HGB 12.3 g/dL (11.2-15.7); MCH 30.1 pg (27.0-33.0); MCHC 33.2 % (32.0-36.0); MCV 91 fL (80-95); MPV 10.6 fL (8.0-11.0); Platelet Count 269 10^3/uL (130-400); RBC 4.08 10^6/uL (3.93-5.22); RDW 12.4 % (11.7-14.6); RDW-SD 40.7 fL; WBC 12.81 10^3/uL (4.4-10.8)
[2023-10-05 23:50] VITALS: BP 133/80; PULSE 88; PULSE 90; RESP 16; TEMP 36.9; O2SAT 98
[2023-10-06] VITALS (52 sets, daily range): BP systolic 113–166; BP diastolic 51–91; PULSE 71–137; RESP 12–18; TEMP 36.6–38.4; O2SAT 87–100; BMI 42.3
--- NOTE | 2023-10-06 01:57 | W.PM.OBNL1 ---
Date of service: 10/06/23 Time of Service: 01:57 Informed Consent Informed Consent: Regional Anesthesia and Risk,Benefits,Alternatives Discussed Pelvic Exam Dilation: 7 Effacement (%): 100 station: -3 Cervix Position: anterior Contractions Monitor Mode: Palpation Contraction Frequency(min): 2-3 Fetus A Monitor: Doppler Heart Rate Baseline: 140 FHR Rhythm: Regular Characteristics: Normal Amniotic Membrane Status: Ruptured Assessment and Plan Assessment and plan (1) PROM with onset of labor within 24 hours of rupture: Status: Acute Assessment and plan: A: Has progressed to 7/100% vtx -3 with tense forebag palpable Pt is crying, has decided she wants an epidural P: INSURANCE SALES SPECIALIST paged and is en route Plan AROM of forebag once pt is more comfortable Anticipate , medications & 2nd IV access discussed d/t increased risk of PPH Qualifiers: PROM gestational age: full term Qualified Code(s): O42.02 - Full-term premature rupture of membranes, onset of labor within 24 hours of rupture Subjective Interval history since last seen: Pt has used nitrous, water immersion in the tub, ambulation, is now wanting epidural anestheisa.
[2023-10-06] MEDS: Lactated Ringers 500 ML IV (02:16)
[2023-10-06] MEDS: FentaNYL/ROPIvacaine 2 mcg/ml and 0.1% 200 ML CADD Cassette EP (03:00)
--- NOTE | 2023-10-06 03:17 | W.ANESNEU ---
Epidural/Spinal Catheter Date Performed: 10/06/23 Procedure Start: 02:40 Procedure Stop: 03:05 Requesting Provider: Iris Rizvi Procedure Location: Obstetrics Reason Performed: Labor Epidural Standard Monitors Applied: Blood Pressure, SpO2 and See EMR for corresponding vital signs Patient Position: Sitting Sedation Given (Indicate Dose Given): No Sedation given Patient Mental Status: Awake Sterility: Hand Hygiene, Surgical Cap, Surgical Mask, Sterile Gloves, Sterile Drape/Sheet, Eye Protection and Chlorhexidine Procedure Location: L3-L4 Interspace Epidural Needle: Tuohy 18 Gauge Needle Length: 3.5 Inch Needle Approach: Midline Epidural Procedure: Skin Prepped, Sterile Drape Placed, 1% Lidocaine to skin and subcutaneous tissue with 25G needle, Tuohy Needle placed, Bone Contacted despite needle repositioning, CRISPIN to Saline Used, Epidural Catheter Placed, Negative Heme, Negative CSF Flow and Tuohy Needle Removed Catheter Placed?: Catheter Placed Test Dose (Indicate Dose Given): 3ml 1.5% Lidocaine with 1:200K Epinephrine Given Loss of Resistance Depth (cm): 7 Catheter depth at skin (cm): 13 Dressing: [place] Dressing Placed, Tegaderm Applied, Mastisol Used and Dressing reinforced with Tape Epidural Provider Bolus (Indicate Dose Given): Total Ropivacaine 0.1% with Fentanyl 2mcg/ml Given from pump. (ml) Dose:: 7cc Additives (Indicate Dose Given ): None Infusion Medication: Medication Infusion Began Medication Infusion: Ropivacaine 0.1% with Fentanyl 2mcg/ml Maintenance Infusion Rate (ml/hour): 11 PCEA Bolus Dose (ml): 5 Post Procedure Pain score (0-10): 1 Block Level: T8 Paresthesia: None Ultrasound: Used to mathew site Number of Attempts (See previous attempts in note section): 1 Procedure Tolerated: No Complications and Patient tolerated well Procedure Outcome: Successful Performed By: Cristiano Khalil
--- NOTE | 2023-10-06 03:24 | ANES.PREOP_ITS ---
General Info Date of Service Date Performed: 10/06/23 Height: 5 ft 7 in Weight: 122.47 kg Body Mass Index (BMI): 42.3 Meds Allergies and Home Medications Allergies Allergy/AdvReac Type Severity Reaction Status Date / Time amoxicillin Allergy Intermediate Hives Verified 10/05/23 09:46 cillins AdvReac Unknown pt states Uncoded 10/05/23 09:46 swelling and rash with all the cillins Home Medication ?Medication ?Instructions ?Recorded vitamin no.180-ferrous 1 tab PO DAILY #90 tabs 03/08/23 fumarate 27 mg-folic acid 1 mg tablet ( Plus Vitamin-Mineral) aspirin 81 mg tablet,delayed 81 mg PO DAILY #90 tabs 03/23/23 release (Adult Aspirin Regimen) loperamide 2 mg capsule 2 mg PO Q6H PRN loose stool #6 caps 09/29/23 (Anti-Diarrheal (loperamide)) ondansetron 8 mg disintegrating 8 mg PO Q8H PRN nausea and 09/29/23 tablet vomiting #10 tabs Current Visit Medications: Current Medications Generic Name Dose Route Start Last Admin Trade Name Freq PRN Reason Stop Dose Admin Fentanyl/Ropivacaine 200 ml 10/06/23 02:15 Fentanyl/Ropivacaine 2 Mcg/Ml And 0.1% 200 Ml [place] EP DIRECTED [facility] IV Miscellaneous Supplies 1 each 10/05/23 21:30 Iv Access IV DIRECTED [facility] Sodium Chloride 0 ml 10/05/23 21:21 Normal Saline Flush 10 Ml Syr IVP PRN PRN Sodium Chloride 0 ml 10/06/23 08:30 Normal Saline Flush 10 Ml Syr IVP BID IVETTE Sodium Chloride 0 ml 10/05/23 21:21 Normal Saline 10 Ml Vial IJ DIRECTED PRN PFSH Active Problems Active Problems: Problem Status Onset Code PROM with onset of labor within 24 hours of rupture Acute O42.00 Fundal height high for dates Acute Z34.90 Back pain affecting Acute O99.891, M54.9 Stage 1 hypertension Acute I10 Acute Z34.90 Obesity, morbid, BMI 40.0-49.9 Acute E66.01 Anxiety Chronic F41.9 BMI 31.0-31.9,adult Acute Z68.31 LGSIL on Pap smear of cervix Acute R87.612 Medical History Medical History (Updated 10/05/23 @ 22:34 by Iris Rizvi) History of abnormal cervical Pap smear Elevated blood pressure reading Family history of hypertension in mother Dysuria during Missed menses Penicillin adverse reaction rash History of recurrent UTIs Keratosis pilaris (07/31/13) tiffany Lei rec Am LActin 4% every am with tretinoin 0.05% every hs History of chicken pox (05/15/05) Snoring Vision problem wears glasses Tobacco Smoking/Tobacco Use Status: Never Alcohol Alcohol Intake: never Substance Use Substance use: Never Prental History History 2 2 Para 1 Hx # Term Pregnancies 1 Multiple births 0 Hx # Pregnancies 0 Ectopic pregnancies 0 AB induced 0 Hx Number of Living Children 1 AB spontaneous 1 Past Pregnancies Del. Date GA/Weeks # Preg Succ Route Wgt Sex Labor Lgth Anesth esia Location Prov Complic 04/08/21 41 No Yes vaginal 3964.964 g Female 38hrs 28min regional [facility] hemorrhage Delivery Date: 04/08/21 Last Updated by: VINCE Holland: pit sep, epidural kind of worked, PPH, vaginal lac repaired by ; Received TXA EBL 1900 Vital Signs and Lab Results Vital Signs Most Recent Vital Signs in EMR: Most Recent Vital Signs Temp Pulse Resp BP Pulse Ox 36.7 C 137 H 17 149/66 H 98 10/06/23 03:00 10/06/23 03:24 10/06/23 03:00 10/06/23 03:22 10/06/23 03:24 Lab Results 10/05/23 22:25 Blood Type / Crossmatch: 2 Antibody Screen NEGATIVE 10/05/23 Complete Blood Count: 2 White Blood Count 12.81 10^3/uL (4.4-10.8) H 10/05/23 22:25 Red Blood Count 4.08 10^6/uL (3.93-5.22) 10/05/23 22:25 Hemoglobin 12.3 g/dL (11.2-15.7) 10/05/23 22:25 Hematocrit 37.0 % (36.0-46.0) 10/05/23 22:25 Platelet Count 269 10^3/uL (130-400) 10/05/23 22:25 Complete Metabolic Panel: 2 No Data to Display Liver Function Panel: 2 No Data to Display Coagulation Panel: 2 No Data to Display Cardiac Panel: 2 No Data to Display Arterial Blood Gas: 2 No Data to Display Venous Blood Gas: 2 No Data to Display Pancreas Panel: 2 No Data to Display Thyroid Panel: 2 No Data to Display Infectious Disease: 2 No Data to Display Blood Cultures: 2 No Data to Display Toxicology Panel: 2 No Data to Display Panel: 2 No Data to Display Anesthesia Assessment and Plan Anesthesia History Personal History: No History of Anesthesia Complications Family History: No Family History of Anesthesia Complications Exercise Tolerance Exercise Tolerance: Metabolic Equivalents>4 Pertinent Negatives Pertinent Negatives: No Symptoms of GERD Cardiac & Pulmonary Exam Cardiac Exam: Normal S1/S2 Heart Sounds Pulmonary Exam: Clear Bilateral Breath Sounds Implantable Cardiac Device Does patient have a Pacemaker or an ICD?: No Airway Exam Known Difficult Airway: No Mallampati Class: 1 Mouth Opening: Normal (> 3cm) Thyromental Distance: Greater than 3 cm Neck Range of Motion: Full ROM Neck Circumference: Normal Teeth Condition: Normal Dentition ASA Classification ASA Score: ASA 2 Emergency Case?: No NPO Status NPO Status: NPO Clear Liquids>2 hours Status Status: Confirmed Anesthesia Plan Resuscitation Status: Full Code Anesthesia Technique: Labor Epidural Airway Planned: Natural Airway Pain Management: Surgeon and patient request nerve block Monitors Used: Standard Monitors
[2023-10-06] MEDS: miSOPROStol 200 MCG TAB 600 MCG SL (04:00)
[2023-10-06] MEDS: Methylergonovine 0.2 MG/ML VIAL IM (04:10)
--- NOTE | 2023-10-06 04:31 | W.OBDELIVERY ---
Date of service: 10/06/23 Time of Service: 04:31 OB Labor/ Delivery Information Baby A Delivery Delivery Method: Spontaneaous Presentation: Cephalic Cephalic Position: Vertex Vertex Position: Left Occipital Anterior Breech Position: N/A Cord Description-Baby A: 3 Vessels, Nuchal Cord (loose, reduced overhead) and Reduced Cord Description Comment: long cord Amniotic Fluid: Clear Estimated Blood Loss: 400 QBL Delivery Outcome: Liveborn Infant Transferred: Remains with Mother Note: Shortly after epidural placed pt began to relax though still reporting discomfort, the forebag SROM'ed with rapidly ensuing descent. Difficulty tracing FHT's with external transducer was resolved with FSE placement after pt consented, cvx @ 9cm vtx -1. Several contractions later she was found to be fully and +3, category 1 tracing and strong urges to push. 2nd stage huddle completed, risk for PPH noted and preparations made included bringing PPH cart into the room, anhydrous ammonia production supervisor and ROOF FITTER remained on unit during delivery, identified 2nd IV site if needed, and explained possible procedures to pt. Pt's strong efforts resulted in over intact perineum of a vigorous male infant, loose nuchal cord x1 reduced overhead and shoulders delivered easily, to mother's arms immediately. pitocin bolus begun, cord clamped and cut by FOB at 8 minutes of age, cord blood collected, Fernández placenta delivered intact with 3VC. Vulva and vagina inspected and found to be intact, straight cath performed for 100 ml concentrated yellow urine, minimal rubra noted for several minutes and fundal massage was performed frequently. Persistent lochial trickle noted though QBL remained low, misoprostel 600 mcg given PO, small amt clots swept from lower uterine segment, then methergine 0.2 mg given IM. No further clots found in vaginal vault, trickle slowed to usual rubra, fundus remained firm throughout third stage. Strong family bonding noted, apgars 8/8 and blowby oxygen given x2 minutes with on mother's chest, weight 4385 gms. Providers Nurse Licensed Practical Nurse Instructor: Iris Rizvi Bark Peeler: Cristiano Khalil Nurse: Izabel Perales Nurse: Marry Rizvi Other: moncho quinonez Labor/Delivery Information Steroids Given: None Reason Steroids Not Administered: N/A Group Beta Strep: Negative Antibiotics Administered: No Rubella Status: Immune Blood Type: O+ Varicella Immunity: Immune Shoulder Dystocia: No Stages of Labor Onset of Labor Date: 10/05/23 Onset of Labor Time: 18:40 ROM Baby A: 10/06/23 ROM Baby A: 18:40 ROM Total Time- Baby A: hours-894minutes Delivery Date-Baby A: 10/06/23 Infant Delivery Time-Baby A: 03:46 Placenta Delivery Date-Baby A: 10/06/23 Placenta Delivery Time-Baby A: 03:57 Labor-Stage 3 Duration: 11 minutes Total Length of Labor-Baby A: 9 hours and 6 minutes Placenta Cultured: No Placenta Status: Delivered Baby A Gender: Male Gestational Status: Term (39-41.6 wks) Gestational Age in Weeks/Days: 39 Weeks and 0 Days weight: 9 lb 10.676 oz Weight Comment: 4385 gms Length-Baby A: 20 in Score-1 Minute Interval(Baby A) Heart Rate-1 minute: 100 BPM or Greater Respiratory Effort- 1 minute: Slow Respiration/Weak Cry Muscle Tone-1 minute: Active Movement Reflex Response-1 minute: Prompt Response Color-1 minute: Bluish Hands or Feet Score-5 Minute Interval(Baby A) Heart Rate- 5 minute: 100 BPM or Greater Respiratory Effort-5 minute: Slow Respiration/Weak Cry Muscle Tone-5 minute: Active Movement Reflex Response-5 minute: Prompt Response Color-5 minute: Bluish Hands or Feet
[2023-10-06] MEDS: Oxytocin/Normal Saline 30 UNIT/500 ML BAG 95 UNITS IV (05:05)
[2023-10-06] MEDS: Ibuprofen 600 MG TAB PO ×2 (11:43→17:08)
[2023-10-06] MEDS: Acetaminophen 325 MG TAB 650 MG PO ×2 (11:44→17:08)
[2023-10-07] MEDS: Ibuprofen 600 MG TAB PO (00:12)
[2023-10-07] MEDS: Acetaminophen 325 MG TAB 650 MG PO (00:12)
--- NOTE | 2023-10-07 00:24 | OBPPV_ITS ---
Date of service: 10/07/23 Time of Service: 09:00 Assessment and Plan Assessment and plan (1) Term delivered: Status: Acute Assessment and plan: A: PPD#1, nml recovery well, happy with experience P: Pt desires discharge to home today Plans NFP and fertility awareness for BCM F/up at 2 & 6 wks Written instructions reviewed and given to pt Subjective Subjective Patient comments: No complaints, Pain well controlled, Tolerating diet and Bowel Movement Patient's Mood: happy [place] baby status: Doing well, Nursing well, Rooming in and Strong Bonding Observed [place] feeding status: Exclusively breast feeding Exam Physical Exam Vital signs: Temp Pulse Resp BP Pulse Ox 98.6 F 72 16 125/89 99 10/06/23 20:00 10/06/23 20:00 10/06/23 20:00 10/06/23 20:00 10/06/23 20:00 Vital Signs Reviewed: Yes Constitutional Constitutional: no acute distress, obese and cooperative HEENT Exam HEENT Exam: Normal Neck Exam Neck Exam: Normal Respiratory Exam Respiratory Exam: Normal Cardiovascular Exam Cardiovascular Exam: Normal Abdominal Exam Abdomen: Other (soft, nontender) Fundal Exam Fundus: Below Umbilicus and Firm Rectal Exam Rectal Exam: Normal Exam Perineum: Intact and Normal Extremities Exam Extremity Exam: Normal Back/Spine/Pelvis Exam Back Exam: Normal Skin Exam Skin Exam: Normal Neurological Exam Neurological Exam: Normal Psychiatric Exam Psychiatric Exam: Normal
[2023-10-07 07:30] VITALS: BP 128/86; PULSE 95; RESP 12; TEMP 37.2
--- NOTE | 2023-10-07 08:23 | DSE_ITS ---
Date of service: 10/07/23 Time of Service: 08:23 DS: Diagnosis Discharge Diagnosis (1) Term delivered: Status: Acute Discharge Plan Disposition Patient Disposition: Home Condition: Good Discharge Details Reason For Visit: LABOR Admit Date/Time: 10/05/23 21:42 Admit Provider: Iris Rizvi Attending Provider: Iris Rizvi Primary Care Provider: Unknown,Unknown Hospital Course Hospital Course: Pt arrived in labor, on HD#2, nml course, desires discharge on PPD#1 (HD#3) Home Meds and New Rx's Prescriptions: No Action Plus Vitamin-Mineral 27 mg iron- 1 mg tablet 1 tab PO DAILY Qty: 90 5RF Discharge Instructions Additional Instructions: Please keep 2 and 6 wk appointments, if you prefer the 2 wk appt to be via telehealth please call that morning to request it. Call for any and all concerns. Stand Alone Forms: BC Instructions, BC Post Vaginal Deliver Activity:: Activity as Tolerated Equipment/Supplies:: No Equipment Needed Diet:: Normal Diet OB:DS Summary Summary Vaginal Delivery Method: Spontaneaous Episiotomy Description: None Laceration Description: None Laceration Extension: N/A Contraception Discussed Contraception Discussed: Yes Contraceptive Plan: Not planning to use, Infant Gender-Baby A: Male weight: 9 lb 10.676 oz Status at Discharge Functional status at discharge: independent ambulation Overall status at discharge: patient is progressing back to baseline Mental Status: mental status grossly normal Speech and Movement: speech and movement normal Mood: congruent mood Affect: normal affect Quality:SDOH Health Related Social Needs: No Data to Display Exam Physical Exam Vital signs: Temp Pulse Resp BP Pulse Ox 98.6 F 72 16 125/89 99 10/06/23 20:00 10/06/23 20:00 10/06/23 20:00 10/06/23 20:00 10/06/23 20:00 Constitutional Constitutional: no acute distress, obese and cooperative HEENT Exam HEENT Exam: Normal Neck Exam Neck Exam: Normal Respiratory Exam Respiratory Exam: Normal Cardiovascular Exam Cardiovascular Exam: Normal Abdominal Exam Abdomen: Other (soft, nontender) Fundal Exam Fundus: Below Umbilicus and Firm Rectal Exam Rectal Exam: Normal Exam Perineum: Intact and Normal Extremities Exam Extremity Exam: Normal Back/Spine/Pelvis Exam Back Exam: Normal Skin Exam Skin Exam: Normal Neurological Exam Neurological Exam: Normal Psychiatric Exam Psychiatric Exam: Normal PFSH All Active Problems (Updated 10/07/23 @ 00:29 by Iris Rizvi) Term delivered (Acute) Stage 1 hypertension (Acute) Obesity, morbid, BMI 40.0-49.9 (Acute) Anxiety (Chronic) discontinued effexor with BMI 31.0-31.9,adult (Acute) LGSIL on Pap smear of cervix (Acute) colposcopy 2020 Medical History (Updated 10/07/23 @ 00:29 by Iris Rizvi) Back pain affecting Fundal height high for dates PROM with onset of labor within 24 hours of rupture History of abnormal cervical Pap smear Elevated blood pressure reading Family history of hypertension in mother Dysuria during Missed menses Penicillin adverse reaction rash History of recurrent UTIs Keratosis pilaris (07/31/13) tiffany Lei rec Am LActin 4% every am with tretinoin 0.05% every hs History of chicken pox (05/15/05) Snoring Vision problem wears glasses Family History Mother Essential hypertension stress related Healthy adult Hemochromatosis Father Healthy adult Other Personal history of malignant neoplasm pat uncle-brain Myocardial infarction PGGF Brother Penicillin allergy Social History Smoking/Tobacco Use Status: Never Smoking risk assessment performed?: Yes Alcohol Intake: never Drug use: Never Housing: house Do you feel safe at home: Yes Do you feel safe in your relationship?: Yes Female Reproductive History Menstrual control method: none History History 2 Para 1 Hx # Term Pregnancies 1 Multiple births 0 Hx # Pregnancies 0 Ectopic pregnancies 0 AB induced 0 Hx Number of Living Children 1 AB spontaneous 1 Past Pregnancies Del. Date GA/Weeks # Preg Succ Route Wgt Sex Labor Lgth Anesth esia Location Prov Complic 04/08/21 41 No Yes vaginal 8 lb 11.86 oz Female 38hrs 28min region allie Hinojosa CNM hemorrhage Delivery Date: 04/08/21 Last Updated by: VINCE Holland Angela: pit aug, epidural kind of worked, PPH, vaginal lac repaired by MD; Received TXA EBL 1900 DS: Data Vitals/I&O Vitals and I&O: Vital Signs Temperature 98.6 F 10/06/23 20:00 Temperature Source Oral 10/06/23 20:00 Pulse 72 10/06/23 20:00 Pulse Rhythm Regular 10/06/23 20:00 Respiratory Rate 16 10/06/23 20:00 Blood Pressure 125/89 10/06/23 20:00 Blood Pressure Mean 101 10/06/23 20:00 Pulse Oximetry 99 10/06/23 20:00 Oxygen Delivery Method Room Air 10/05/23 21:47 Oxygen Flow Rate 0 10/05/23 21:47 Pain Level 3 10/06/23 17:08 Intake & Output 10/06/23 10/06/23 10/07/23 11:59 23:59 11:59 Intake Total 500 / 500 Output Total 1800 / 2700 900 / 2700 Balance -1300 / -2200 -900 / -2200 Weight 270 lb Intake: IV 500 / 500 Output: Urine 900 / 1800 900 / 1800 Emesis 500 / 500 Blood 400 / 400 Other: Urine Color Yellow
--- NOTE | 2023-10-07 14:32 | W.ANESPOSTOP ---
Postoperative Evaluation Date, Time and Location Date Performed: 10/07/23 Time Performed: 14:32 Patient Location: Obstetrics Vital Signs Most Recent Imported Vital Signs: Most Recent Vital Signs Temp Pulse Resp BP Pulse Ox 37.2 C 95 H 12 128/86 99 10/07/23 07:30 10/07/23 07:30 10/07/23 07:30 10/07/23 07:30 10/06/23 20:00 Pain Score Most Recent Pain Score: Most Recent Pain Score Pain Level 3 10/06/23 17:08 Assessment Mental Status: Awake (Alert & Oriented to Patient Baseline) Airway and Respiratory Function: Patent airway with normal (patient baseline) respiratory exam Cardiovascular Function: Hemodynamically Stable Hydration Status: Adequately Hydrated Nausea & Vomiting: No Nausea or Vomiting Pain: Pt. Denies Any Pain Peripheral Nerve Block: Patient did not receive a nerve block Postoperative Comments:: Pt discharged. Per report from clinical staff anesthesiologist, uncomplicated Epidural removal. No post delivery issues with back/epidural placement site. Christopher Khalil CRNA
== END 2023-10-07 12:30 | disposition home or self-care (01) | DRG 807 ==
PROVIDERS: Admitting Provider Advanced Practice Midwife; Visit Provider Advanced Practice Midwife
DX: O42.02 Full-term premature rupture of membranes, onset of labor within 24 hours of rupture (principal); Z37.0 Single live birth; Z3A.39 39 weeks gestation of pregnancy; O69.81X0 Labor and delivery complicated by cord around neck, without compression, not applicable or unspecified; O36.63X0 Maternal care for excessive fetal growth, third trimester, not applicable or unspecified; O16.4 Unspecified maternal hypertension, complicating childbirth; O99.344 Other mental disorders complicating childbirth; F41.9 Anxiety disorder, unspecified; O99.214 Obesity complicating childbirth; E66.01 Morbid (severe) obesity due to excess calories
CPT/HCPCS: 85027; 86850; 86900; 86901; J2210